=== PATIENT | female | born 1990 | race Caucasian/White ===

== ENCOUNTER 2016-07-31 19:53 | Observation (INO) | payer OTHER ==
[2016-07-31] MEDS ORDERED: SODIUM CHLORIDE 0.9% 1,000 ML IV STA (22:20)
[2016-07-31 22:25] LABS: Basophils % (A) 0 %; CH 32.5; CHCM 35.7; Eosinophils # (A) 0.2 k/uL (0-0.7); Eosinophils % (A) 2 %; HCT 42.3 % (34.0-46.0); HDW 2.52; HGB 14.3 gm/dL (11.4-16.0); Luc % (Auto) 1; Lymphocytes % (A) 20 %; MCH 30.8 pg (25.0-35.0); MCHC 33.7 g/dL (31.0-37.0); MCV 91.4 fL (80.0-100.0); Mean Platelet Volume 8.1; Monocytes # (A) 0.6 k/uL (0-1.0); Monocytes % (A) 6 %; Neutrophils # (A) 7.4 k/uL (1.3-7.7); Neutrophils % (A) 72 %; RBC 4.63 m/uL (3.80-5.40); RDW 12.7 % (11.5-15.5); WBC 10.3 k/uL (3.8-10.6); WBC (Perox) 10.43
[2016-07-31 22:26] LABS: Appearance,Urine Cloudy (Clear); Bacteria,Urine Many /hpf; Bilirubin,Urine Negative (Negative); Glucose,Urine (UA) Negative (Negative); Ketones,Urine 1+ (Negative); Leukocyte Esterase,Urine Large (Negative); Mucus,Urine Occasional /hpf; Nitrite,Urine Negative (Negative); Particle Count 9660; Protein,Urine 1+ (Negative); RBC,Urine 19 /hpf (0-5); Specific Gravity,Urine 1.017 (1.001-1.035); Squamous Epithelial Cell,Urine 4 /hpf (0-4); UA Billing (MACRO vs. MICRO) MICRO; WBC,Urine 139 /hpf (0-5)
[2016-07-31] MEDS ORDERED: METOCLOPRAMIDE 5 MG/ML 2 ML VIAL IVP STA (22:31)
[2016-07-31] MEDS ORDERED: ACETAMINOPHEN IV (For NPO) 1,000 MG in EMPTY BAG 1 BAG IVPB STA (22:31)
[2016-07-31 22:34] LABS: ALT 29 U/L (9-52); AST 15 U/L (14-36); Alkaline Phosphatase 46 U/L (38-126); Amylase 38 U/L (30-110); Anion Gap 13 mmol/L; Blood Urea Nitrogen 7 mg/dL (7-17); Carbon Dioxide 23 mmol/L (22-30); Chloride 103 mmol/L (98-107); Glucose 86 mg/dL (74-99); Non-African American GFR(MDRD) >60 (>60 ml/min/1.73 sqM); Potassium 3.6 mmol/L (3.5-5.1); Sodium 139 mmol/L (137-145); Total Bilirubin 0.6 mg/dL (0.2-1.3); Total Protein 6.7 g/dL (6.3-8.2)
--- NOTE | 2016-07-31 22:36 | ED ---
Abdominal Pain HPI <Basilio Bailey - Last Filed: 08/01/16 01:01> - General Source: patient, RN notes reviewed Mode of arrival: ambulatory Limitations: no limitations <Elizabeth Rojas - Last Filed: 08/01/16 03:26> - General Chief Complaint: Abdominal Pain Stated Complaint: abd pain, fever, sleeplessness Time Seen by Provider: 07/31/16 22:02 - History of Present Illness Initial Comments: Patient is a 25-year-old female presents to the emergency room for evaluation of lower abdominal pain. Patient states she has been having abdominal pain for the past 3 days. Patient states she feels like her stomach is being twisted and then pulled apart. Patient states she is 10 days late on her last menstrual period. Patient denies vaginal bleeding. Patient denies abnormal vaginal discharge. Patient states she has a history of herpes. Patient denies any other history of STDs. Patient does state that she is having some pain and burning during urination. Patient denies any blood in the urine. Patient denies any fevers or chills. Patient denies constipation or diarrhea. Patient states she's been very nauseous from abdominal pain. Patient states she has a history of D&C and laparoscopic surgery when she was 11. Patient denies any other abdominal surgeries. Patient denies chest pain or shortness of breath. Patient denies headache or dizziness. Patient denies fevers or chills. (Elizabeth Rojas) - Related Data Previous Rx's Medication Instructions Recorded Clindamycin [Cleocin] 150 mg PO TID 7 Days 08/01/16 Allergies Allergy/AdvReac Type Severity Reaction Status Date / Time No Known Allergies Allergy Verified 07/31/16 21:36 Review of Systems ROS Other: All systems not noted in ROS Statement are negative. <Basilio Bailey - Last Filed: 08/01/16 01:01> ROS Other: All systems not noted in ROS Statement are negative. <Elizabeth Rojas - Last Filed: 08/01/16 03:26> ROS Statement: Those systems with pertinent positive or pertinent negative responses have been documented in the HPI. Past Medical History Past Medical History: GERD/Reflux Additional Past Medical History / Comment(s): HSV last 2000 History of Any Multi-Drug Resistant Organisms: None Reported Additional Past Surgical History / Comment(s): D&C, EXPLORATORY LAP Past Anesthesia/Blood Transfusion Reactions: No Reported Reaction Past Psychological History: Anxiety, Depression, PTSD Smoking Status: Current every day smoker Past Alcohol Use History: Occasional Additional Past Alcohol Use History / Comment(s): 1/2 pack per day Past Drug Use History: Marijuana - Past Family History Sister(s) Family Medical History: Asthma Additional Family Medical History / Comment(s): aunt- thyroid disease <Elizabeth Rojas - Last Filed: 08/01/16 03:26> General Exam <Basilio Bailey - Last Filed: 08/01/16 01:01> Limitations: no limitations General appearance: alert, in no apparent distress Head exam: Present: atraumatic, normocephalic, normal inspection Eye exam: Present: normal appearance ENT exam: Present: normal exam Neck exam: Present: normal inspection Respiratory exam: Present: normal lung sounds bilaterally. Absent: respiratory distress Cardiovascular Exam: Present: regular rate, normal rhythm, normal heart sounds GI/Abdominal exam: Present: soft, tenderness (RUQ/LUQ), normal bowel sounds. Absent: distended, guarding, rebound, rigid External exam: Present: normal external exam Speculum exam: Present: normal speculum exam, vaginal discharge By manual exam: Present: cervical motion tenderness, adnexal tenderness ( Bilateral). Absent: normal by manual exam Extremities exam: Present: normal inspection Back exam: Present: normal inspection Neurological exam: Present: alert, oriented X3, CN II-XII intact, normal gait Psychiatric exam: Present: normal affect, normal mood Skin exam: Present: warm, dry, intact, normal color. Absent: rash <Elizabeth Rojas - Last Filed: 08/01/16 03:26> - General Exam Comments Initial Comments: Pain exam room, tearful, no acute distress. (Elizabeth Rojas) Medical Decision Making - Lab Data Result diagrams: 07/31/16 22:05 07/31/16 22:05 <Basilio Bailey - Last Filed: 08/01/16 01:01> - Lab Data Result diagrams: 07/31/16 22:05 07/31/16 22:05 - Radiology Data Radiology results: report reviewed, image reviewed <Elizabeth Rojas - Last Filed: 08/01/16 03:26> - Medical Decision Making Patient reevaluated by myself, Dr. Bailey. Patient does have mild tenderness in the lower abdomen/pelvic region on exam. Case was discussed in detail with Dr. Montalvo, who will admit for Dr. Camargo with IV antibiotics. (Basilio Bailey) Patient is a 25-year-old female presents emergency room for evaluation of lower abdominal pain. Urine test positive. Urinalysis suspicious for urinary tract infection. Patient was extremely tender during bimanual exam. Labs and vital stable. Case discussed with Dr. Bailey. Dr. Bailey also evaluated patient. Dr. Bailey spoke with Dr. Montalvo who will admit for Dr. Camargo. Patient will be started on Rocephin. Plan discussed with patient. ( Elizabeth Rojas) - Lab Data Lab Results 07/31/16 07/31/16 07/31/16 Range/Units 22:00 22:00 22:05 WBC (3.8-10.6) k/uL RBC (3.80-5.40) m/uL Hgb (11.4-16.0) gm/dL Hct (34.0-46.0) % MCV (80.0-100.0) fL MCH (25.0-35.0) pg MCHC (31.0-37.0) g/dL RDW (11.5-15.5) % Plt Count (150-450) k/uL Neutrophils % % Lymphocytes % % Monocytes % % Eosinophils % % Basophils % % Neutrophils # (1.3-7.7) k/uL Lymphocytes # (1.0-4.8) k/uL Monocytes # (0-1.0) k/uL Eosinophils # (0-0.7) k/uL Basophils # (0-0.2) k/uL Sodium 139 (137-145) mmol/L Potassium 3.6 (3.5-5.1) mmol/L Chloride 103 (98-107) mmol/L Carbon Dioxide 23 (22-30) mmol/L Anion Gap 13 mmol/L BUN 7 (7-17) mg/dL Creatinine 0.83 (0.52-1.04) mg/dL Est GFR (MDRD) Af Amer >60 (>60 ml/min/1.73 sqM) Est GFR (MDRD) Non-Af >60 (>60 ml/min/1.73 sqM) Glucose 86 (74-99) mg/dL Calcium 9.0 (8.4-10.2) mg/dL Total Bilirubin 0.6 (0.2-1.3) mg/dL AST 15 (14-36) U/L ALT 29 (9-52) U/L Alkaline Phosphatase 46 (38-126) U/L Total Protein 6.7 (6.3-8.2) g/dL Albumin 4.1 (3.5-5.0) g/dL Amylase 38 (30-110) U/L Lipase 63 (23-300) U/L HCG, Quant mIU/mL Urine Color Yellow Urine Appearance Cloudy H (Clear) Urine pH 8.0 (5.0-8.0) Ur Specific Ronan 1.017 (1.001-1.035) Urine Protein 1+ H (Negative) Urine Glucose (UA) Negative (Negative) Urine Ketones 1+ H (Negative) Urine Blood Negative (Negative) Urine Nitrate Negative (Negative) Urine Bilirubin Negative (Negative) Urine Urobilinogen 4.0 (<2.0) mg/dL Ur Leukocyte Esterase Large H (Negative) Urine RBC 19 H (0-5) /hpf Urine WBC 139 H (0-5) /hpf Urine WBC Clumps Rare H (None) /hpf Ur Squamous Epith Cells 4 (0-4) /hpf Urine Bacteria Many H (None) /hpf Urine Mucus Occasional H (None) /hpf Urine HCG, Qual Detected (Not Detectd) Trichomonas Ag (Rapid) (Negative) 07/31/16 07/31/16 08/01/16 Range/Units 22:05 22:10 00:01 WBC 10.3 (3.8-10.6) k/uL RBC 4.63 (3.80-5.40) m/uL Hgb 14.3 (11.4-16.0) gm/dL Hct 42.3 (34.0-46.0) % MCV 91.4 (80.0-100.0) fL MCH 30.8 (25.0-35.0) pg MCHC 33.7 (31.0-37.0) g/dL RDW 12.7 (11.5-15.5) % Plt Count 273 (150-450) k/uL Neutrophils % 72 % Lymphocytes % 20 % Monocytes % 6 % Eosinophils % 2 % Basophils % 0 % Neutrophils # 7.4 (1.3-7.7) k/uL Lymphocytes # 2.0 (1.0-4.8) k/uL Monocytes # 0.6 (0-1.0) k/uL Eosinophils # 0.2 (0-0.7) k/uL Basophils # 0.0 (0-0.2) k/uL Sodium (137-145) mmol/L Potassium (3.5-5.1) mmol/L Chloride (98-107) mmol/L Carbon Dioxide (22-30) mmol/L Anion Gap mmol/L BUN (7-17) mg/dL Creatinine (0.52-1.04) mg/dL Est GFR (MDRD) Af Amer (>60 ml/min/1.73 sqM) Est GFR (MDRD) Non-Af (>60 ml/min/1.73 sqM) Glucose (74-99) mg/dL Calcium (8.4-10.2) mg/dL Total Bilirubin (0.2-1.3) mg/dL AST (14-36) U/L ALT (9-52) U/L Alkaline Phosphatase (38-126) U/L Total Protein (6.3-8.2) g/dL Albumin (3.5-5.0) g/dL Amylase (30-110) U/L Lipase (23-300) U/L HCG, Quant 166.9 mIU/mL Urine Color Urine Appearance (Clear) Urine pH (5.0-8.0) Ur Specific Ronan (1.001-1.035) Urine Protein (Negative) Urine Glucose (UA) (Negative) Urine Ketones (Negative) Urine Blood (Negative) Urine Nitrate (Negative) Urine Bilirubin (Negative) Urine Urobilinogen (<2.0) mg/dL Ur Leukocyte Esterase (Negative) Urine RBC (0-5) /hpf Urine WBC (0-5) /hpf Urine WBC Clumps (None) /hpf Ur Squamous Epith Cells (0-4) /hpf Urine Bacteria (None) /hpf Urine Mucus (None) /hpf Urine HCG, Qual (Not Detectd) Trichomonas Ag (Rapid) Negative (Negative) Disposition <Basilio Bailey - Last Filed: 08/01/16 01:01> Decision Date: 08/01/16 <Elizabeth Rojas - Last Filed: 08/01/16 03:26> Clinical Impression: , Pelvic pain, Urinary tract infection Disposition: ADMITTED IP TO THIS HOSP Condition: Stable
[2016-08-01] MEDS ORDERED: AZITHROMYCIN 500 MG TAB PO STA (00:24)
[2016-08-01] MEDS ORDERED: cefTRIAXone 250 MG VIAL IM STA (00:24)
--- NOTE | 2016-08-01 00:35 | US ---
EXAMINATION TYPE: US OB <=14 wks transvag DATE OF EXAM: 07/31/2016 11:48 PM COMPARISON: NONE CLINICAL HISTORY: ML pain, just found out today in ER, unknown LMP- no period in June, i rreg menses, has 7 month old baby . EXAM PERFORMED: Transvaginal (TV) and Transabdominal (TA) EXAM MEASUREMENTS: GESTATIONAL AGE / DATING Dates by LMP: (Unknown) EDC: Unknown Dates by Current Scan: (Unable to determine) EDC: Unable to determine MATERNAL ANATOMY Uterus: 8.1 x 5.8 x 4.8 cm Right Ovary: 3.4 x 1.6 x 1.7 cm Left Ovary: 3.6 x 2.4 x 2.3 cm Post CDS / Adnexa: Free fluid Presence of corpus luteal cyst: left ovarian lesion=1.6 x 1.7 x 1.6 cm Endometrium- 1.3 cm, tiny cystic area seen via vaginal ultrasound GESTATION / SURVEY CRL: Not seen MSD: not seen Yolk Sac (normal less than 6mm): not seen IUP: No IUP seen at this time Date of LMP: unknown Beta HcG (if available): unavailable at this time TECHNOLOGIST IMPRESSION: No IUP seen. Moderate/large about of free fluid seen in bilateral adnexas and posterior cul de sac. IMPRESSION: No intra or extrauterine gestational sac is seen. There is free fluid in the cul-de-sac. There is a r ounded 1.6 cm echogenic area on the left ovary. This is of uncertain significance. I do not see any c onvincing evidence of an ectopic . The free fluid is nonspecific.
[2016-08-01] MEDS ORDERED: NALOXONE 0.4 MG/ML 1 ML VIAL IV PRN (01:43)
[2016-08-01] MEDS ORDERED: diphenhydrAMINE 50 MG/ML 1 ML VIAL IVP STA (01:59)
[2016-08-01] MEDS ORDERED: PYRIDOXINE 100 MG/ML 1 ML VIAL IVP STA (02:00)
[2016-08-01] MEDS ORDERED: PYRIDOXINE 100 MG/ML 1 ML VIAL IVP SCH (02:00)
[2016-08-01] MEDS: SODIUM CHLORIDE 0.9% 1,000 ML IV SCH ×2 (02:09→13:28)
[2016-08-01 03:30] VITALS: BMI 27.1
[2016-08-01 06:49] LABS: CH 32.1; CHCM 34.4; HCT 39.9 % (34.0-46.0); HGB 13.2 gm/dL (11.4-16.0); MCH 31.1 pg (25.0-35.0); MCHC 33.1 g/dL (31.0-37.0); MCV 93.7 fL (80.0-100.0); Mean Platelet Volume 7.4; RBC 4.25 m/uL (3.80-5.40); RDW 12.5 % (11.5-15.5); WBC 6.7 k/uL (3.8-10.6); WBC (Perox) 6.73
[2016-08-01 07:05] LABS: ALT 30 U/L (9-52); AST 18 U/L (14-36); Alkaline Phosphatase 40 U/L (38-126); Anion Gap 11 mmol/L; Blood Urea Nitrogen 6 mg/dL (7-17); Calcium 8.5 mg/dL (8.4-10.2); Carbon Dioxide 21 mmol/L (22-30); Chloride 110 mmol/L (98-107); Glucose 86 mg/dL (74-99); Non-African American GFR(MDRD) >60 (>60 ml/min/1.73 sqM); Potassium 3.8 mmol/L (3.5-5.1); Sodium 142 mmol/L (137-145); Total Bilirubin 0.8 mg/dL (0.2-1.3); Total Protein 5.9 g/dL (6.3-8.2)
[2016-08-01] MEDS: ACETAMINOPHEN TAB 325 MG TAB PO PRN ×3 (09:24→23:29)
--- NOTE | 2016-08-01 09:43 | P.HPOB ---
History of Present Illness H&P Date: 08/01/16 Chief Complaint: Pelvic pain: Positive test Patient is a 25-year-old G4 P to at unknown dates. She reports she is currently 12 days late for her menstrual cycle. A beta hCG was done in the emergency room and revealed a labs I of 161. They did do an ultrasound which showed a suspected corpus luteum cyst and a possible small 1.3 cm gestational sac in the uterus. This is difficult to say without the above beta-hCG it may potentially also be a suitable gestational sac. Certainly based on her history that she relates that she has a significant amount scarring in around her tubes she is at higher risk for an ectopic . She reports that in 2000 she had a diagnostic laparoscopy which she believes showed scarring of her fallopian tubes from what she believes was an old infection. She has however since that time had 2 vaginal deliveries without complications or difficulty. She reports that last night she was not really doing anything and then began having significant pain that was all the sudden. Pain is reported be 8 out of 10 at its worst. She was admitted for observational status. In following her blood pressures her blood pressures remained stable she has a low blood pressure began with averages have been 90s 5 over 50s to 60s. However her pulse is normal. I did note that she went from 14.3-313.2 on her hemoglobin over this may be dilutional issue likely was dehydrated on admission. There is also suspected urinary tract infection through the ER although no culture has been done. She was started on Rocephin through the emergency room as well. She had had a very long conversation about my concern over the possibility of ectopic . It is very difficult at this stage to state unequivocally that she does not have one however the amount of fluid in her pelvis is more reflective in her current situation of potentially a ruptured cyst than an ectopic . There is no true evidence of ectopic on ultrasound but absolutely cannot be ruled out at this time. Would recommend repeating her beta-hCG at 24 hours just that we have some directional idea as to what direction the [place] normal level is gone is doing. We'll also plan to repeat her CBC later today to verify stability. It is noted that she ate breakfast this morning so unless there is some emergency would not plan to do any diagnostic surgery for a minimum of 6 hours after this. Obviously if she has an emergency then that would be taken into consideration and would undergo surgery despite having just eaten. Diet was ordered through the emergency room. 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 History of Any Multi-Drug Resistant Organisms: None Reported Additional Past Surgical History / Comment(s): D&C, EXPLORATORY LAP Past Anesthesia/Blood Transfusion Reactions: No Reported Reaction Past Psychological History: Anxiety, Depression, PTSD Additional Psychological History / Comment(s): sees Dr. Ms. Potter through [facility] Smoking Status: Current every day smoker Past Alcohol Use History: Occasional Additional Past Alcohol Use History / Comment(s): 1/2 pack per day Past Drug Use History: Marijuana Additional Drug Use History / Comment(s): medical marijuana for ptsd - Past Family History Sister(s) Family Medical History: Asthma Additional Family Medical History / Comment(s): aunt- thyroid disease Mother History Unknown: Yes Father History Unknown: Yes Medications and Allergies Home Medications Medication Instructions Recorded Confirmed Type No Known Home Medications [No 08/01/16 08/01/16 History Known Home Medications] Allergies Allergy/AdvReac Type Severity Reaction Status Date / Time No Known Allergies Allergy Verified 07/31/16 21:36 Exam Osteopathic Statement: *. No significant issues noted on an osteopathic structural exam other than those noted in the History and Physical/Consult. - Vital Signs Vital signs: Vital Signs Temp Pulse Pulse Pulse Resp BP BP 08/01/16 07:33 98.1 F 76 16 94/54 08/01/16 03:00 98.4 F 76 18 08/01/16 02:17 98.1 F 66 18 109/56 BP Pulse Ox 08/01/16 07:33 98 08/01/16 03:00 96/41 99 08/01/16 02:17 100 Intake and Output 07/31/16 08/01/16 08/01/16 22:59 06:59 14:59 Output Total 300 Balance -300 Output: Urine 300 Other: Voiding Method Toilet Toilet # Voids 1 Weight 69.6 kg - OBG Physical Exam Abdomen: bowel sounds normal (Abdomen is soft and nontender. There are positive bowel sounds noted at this time there is no rebound/rigidity/guarding) , no diffuse tenderness, no bruit present, no guarding noted, no hepatomegaly, no splenomegaly, no mass Results Result Diagrams: 08/01/16 06:11 08/01/16 06:11 Abnormal Lab Results - Last 24 Hours (Table) 08/01/16 Range/Units 06:11 Chloride 110 H (98-107) mmol/L Carbon Dioxide 21 L (22-30) mmol/L BUN 6 L (7-17) mg/dL Total Protein 5.9 L (6.3-8.2) g/dL
[2016-08-01] MEDS: METOCLOPRAMIDE 5 MG/ML 2 ML VIAL IVP PRN ×3 (10:33→23:34)
[2016-08-01 10:54] LABS: Add Differential Manual Differential
[2016-08-01 10:58] LABS: Nucleated Red Blood Cells 0 /100 WBC (0-0); Total Cells Counted 100
[2016-08-01 10:59] LABS: Manual Review Performed
[2016-08-01 11:04] LABS: RBC Morphology Normal
[2016-08-01 14:24] LABS: CH 32.2; CHCM 34.4; HCT 39.6 % (34.0-46.0); HDW 2.55; HGB 13.5 gm/dL (11.4-16.0); MCV 94.1 fL (80.0-100.0); Mean Platelet Volume 8.4; RDW 12.7 % (11.5-15.5)
[2016-08-01 20:12] VITALS: RESP 20
[2016-08-02] MEDS: SODIUM CHLORIDE 0.9% 1,000 ML IV SCH (02:37)
[2016-08-02] MEDS: METOCLOPRAMIDE 5 MG/ML 2 ML VIAL IVP PRN (06:39)
[2016-08-02] MEDS: ACETAMINOPHEN TAB 325 MG TAB PO PRN (07:53)
--- NOTE | 2016-08-02 08:31 | P.DS ---
Providers Date of admission: 08/01/16 01:43 Expected date of discharge: 08/02/16 Attending physician: Ashley Camargo Primary care physician: Thao Nava - Discharge Diagnosis(es) (1) Current Visit: Yes Status: Acute (2) Urinary tract infection Current Visit: Yes Status: Acute (3) Abdominal pain affecting , antepartum Current Visit: No Status: Acute Hospital Course: Patient presented with pelvic pain and is currently . Her. She was only 161. There was some free fluid in the pelvis and she was admitted for observation. Her beta hCG and less than 48 hours only went up to 171. It is still not clear whether this is an ectopic or a normal intrauterine or possibly a threatened . She will follow-up with the beta-hCG 48 hours from now and return to my office on Friday for results. She is instructed that if her pain worsens she should return to the hospital or call immediately. Patient Condition at Discharge: Stable Plan - Discharge Summary New Discharge Prescriptions: Metoclopramide HCl [Reglan] 5 mg PO AC-TID PRN #30 tablet PRN Reason: Nausea Nitrofurantoin Monohyd/M-Cryst [Macrobid] 100 mg PO Q12HR #14 cap Discharge Medication List Metoclopramide HCl [Reglan] 5 mg PO AC-TID PRN #30 tablet 08/02/16 [Rx] Nitrofurantoin Monohyd/M-Cryst [Macrobid] 100 mg PO Q12HR #14 cap 08/02/16 [Rx] Follow up Appointment(s)/Referral(s): Ashley Camargo DO [Doctor of Osteopathic Medicine] - 3 Days Activity/Diet/Wound Care/Special Instructions: Take antibiotics as directed. Please follow-up with S[employer]OL PROGRAM DIRECTOR in 24-48 hours for reevaluation. If any new symptom arises, symptoms worsen or fever develops, return to ER as soon as possible. Discharge Disposition: HOME SELF-CARE
[2016-08-02 09:06] VITALS: BP 125/72; PULSE 75; TEMP 98
== END 2016-08-02 09:35 | disposition home or self-care (01) ==
LOC: EC 19:53 → 6PED 08-01 01:43
PROVIDERS: ADMIT Obstetrics & Gynecology; ATTEND Obstetrics & Gynecology
DX: O23.41 Unspecified infection of urinary tract in pregnancy, first trimester (principal); O99.331 Smoking (tobacco) complicating pregnancy, first trimester; A60.00 Herpesviral infection of urogenital system, unspecified; K21.9 Gastro-esophageal reflux disease without esophagitis; F41.9 Anxiety disorder, unspecified; F32.9 Major depressive disorder, single episode, unspecified; F43.10 Post-traumatic stress disorder, unspecified; F12.90 Cannabis use, unspecified, uncomplicated; Z82.5 Family history of asthma and other chronic lower respiratory diseases; Z3A.00 Weeks of gestation of pregnancy not specified
CPT/HCPCS: 36415; 86900; 86901; 80053 ×2; 87591; 87491; 82150; 83690; 85025 ×2; 85027; 81001; 81025; 84702 ×2; 87808; 87070; 76801; 76817; 99285; 96375 ×4; 96372; 96361; G0378 ×2; J1200; J3415; J2765 ×3; J0696 ×2; J0131; 87205; 96365; 96366; 96376

== ENCOUNTER → 2016-08-04 | Outpatient (CLI) | payer OTHER | END | disposition home or self-care (01) | LOC: PEDOP 09:54 | PROVIDERS: ATTEND Obstetrics & Gynecology | DX: O00.90 Unspecified ectopic pregnancy without intrauterine pregnancy (principal); Z3A.00 Weeks of gestation of pregnancy not specified | CPT/HCPCS: 84702 ==

== ENCOUNTER → 2016-08-05 | Outpatient (CLI) | payer OTHER ==
[~2016-08-05] MED LIST: METHOTREXATE SODIUM (PF) 25 MG/ML 2 ML VIAL IM NR
[2016-08-05 11:27] VITALS: BP 132/84; PULSE 105; RESP 18; TEMP 98.3
== END | disposition home or self-care (01) ==
LOC: PROCWHC3 10:53
PROVIDERS: ATTEND Obstetrics & Gynecology
DX: O00.90 Unspecified ectopic pregnancy without intrauterine pregnancy (principal); Z3A.00 Weeks of gestation of pregnancy not specified
CPT/HCPCS: 96402; J9260

== ENCOUNTER 2016-11-01 11:29 | Emergency (ER) | payer BC, OTHER ==
[2016-11-01] MEDS ORDERED: KETOROLAC 60 MG/2 ML VIAL IM STA (11:47)
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
--- NOTE | 2016-11-01 12:17 | XR ---
EXAMINATION TYPE: XR knee complete RT DATE OF EXAM ORDERED: 11/01/2016 12:11 PM HISTORY: Pain. COMPARISON: Previous study dated 04/03/2016. FINDINGS: Joint spaces are maintained. There is no chondrocalcinosis. No fracture or dislocation is seen. No joint effusion is evident. IMPRESSION: NORMAL RIGHT KNEE.
[2016-11-01 13:10] VITALS: BP 119/71; PULSE 68; RESP 15; TEMP 98
== END 2016-11-01 13:15 | disposition home or self-care (01) ==
LOC: EC 11:29
DX: S86.911A Strain of unspecified muscle(s) and tendon(s) at lower leg level, right leg, initial encounter (principal); F17.200 Nicotine dependence, unspecified, uncomplicated; Z91.030 Bee allergy status; X58.XXXA Exposure to other specified factors, initial encounter
CPT/HCPCS: 99283; 96372; 73562; J1885

== ENCOUNTER → 2016-11-26 | Outpatient (CLI) | payer BC, OTHER ==
--- NOTE | 2016-11-27 15:04 | MR ---
EXAMINATION TYPE: MR knee RT wo con DATE OF EXAM: 11/26/2016 4:17 PM COMPARISON: NONE HISTORY: Rt knee pain x 1 month TECHNIQUE: Multiplanar, multisequence imaging of the right knee is performed without IV contrast. FINDINGS: MEDIAL MENISCUS: There is mild increased signal within the substance of the anterior and posterior ho rns of the medial meniscus, more so at the posterior horn. Findings can be compatible some internal d erangement. LATERAL MENISCUS: There is increased signal within the substance of the posterior horn lateral menisc us compatible some internal derangement. Anterior horn lateral meniscus is intact. CRUCIATE LIGAMENTS: The anterior and posterior cruciate ligaments are intact and unremarkable. COLLATERAL LIGAMENTS: The medial collateral ligament and lateral collateral ligament complex are inta ct and unremarkable. EXTENSOR MECHANISM: Distal quadriceps tendon is normal. The patellar tendon near the insertion of the tibia has some minimal intrasubstance increased signal on T2-weighted sequences. Minimal strain may be present. EFFUSION: There is a small approaching moderate sized joint effusion present. POPLITEAL CYST: No popliteal cyst is evident. TRICOMPARTMENT SPACES: No significant joint space narrowing is present. CARTILAGE: Articular cartilage is intact. BONE MARROW SIGNAL: No focal abnormal marrow signal is appreciated. OTHER: No additional significant abnormality is appreciated. IMPRESSION: Increased signal within the substance of the posterior horn medial meniscus without communication to an articular surface. Type I tear may be present. 2. Milder type I tears and internal derangement of the anterior and posterior horn medial meniscus ma y be present. 3. Small to moderate joint effusion. 4. Mild increased signal insertion of the patellar tendon. Correlate for strain at this location.
== END | disposition home or self-care (01) ==
LOC: RADMRIMAIN 15:44
PROVIDERS: ATTEND Internal Medicine
DX: S83.241A Other tear of medial meniscus, current injury, right knee, initial encounter (principal); M25.461 Effusion, right knee

== ENCOUNTER 2017-02-08 07:08 | Emergency (ER) | payer BC, OTHER ==
[2017-02-08] MEDS ORDERED: MORPHINE SULFATE 4 MG/ML SYRINGE IV STA (07:49)
[2017-02-08] MEDS ORDERED: ESOMEPRAZOLE 20 MG in SODIUM CHLORIDE 0.9% 50 ML IVPB STA (07:49)
[2017-02-08] MEDS ORDERED: ONDANSETRON 4 MG/2 ML VIAL IVP STA (07:49)
[2017-02-08] MEDS ORDERED: SODIUM CHLORIDE 0.9% 1,000 ML IV STA ×2 (07:49)
[2017-02-08 08:00] LABS: Basophils # (A) 0.1 k/uL (0-0.2); Basophils % (A) 1 %; CH 32.8; CHCM 35.1; Eosinophils # (A) 0.2 k/uL (0-0.7); Eosinophils % (A) 3 %; HCT 41.1 % (34.0-46.0); HDW 2.46; HGB 14.3 gm/dL (11.4-16.0); Luc # (Auto) 0.13; Luc % (Auto) 2; Lymphocytes # (A) 1.8 k/uL (1.0-4.8); Lymphocytes % (A) 26 %; MCH 32.5 pg (25.0-35.0); MCHC 34.7 g/dL (31.0-37.0); MCV 93.7 fL (80.0-100.0); Mean Platelet Volume 8.3; Monocytes # (A) 0.4 k/uL (0-1.0); Monocytes % (A) 6 %; Neutrophils # (A) 4.2 k/uL (1.3-7.7); Neutrophils % (A) 62 %; RBC 4.39 m/uL (3.80-5.40); RDW 13.4 % (11.5-15.5); WBC 6.8 k/uL (3.8-10.6); WBC (Perox) 6.72
--- NOTE | 2017-02-08 08:01 | ED ---
General Adult HPI - General Chief complaint: Abdominal Pain Stated complaint: ABDOMINAL PAIN, RT SIDE Time Seen by Provider: 02/08/17 07:37 Source: patient, RN notes reviewed, old records reviewed Mode of arrival: ambulatory Limitations: no limitations - History of Present Illness Initial comments: This is a 26-year-old female to the ER for evaluation. Patient comes in for evaluation of epigastric pain, superpubic abdominal pain. Severe abdominal pain. Patient states it feels like she had prior tubal , she had tubal was first treated with methotrexate, no prior abdominal surgeries. She is nauseous with vomiting, no fevers. Patient states she is 2 weeks late on her period. No bowel or bladder issues. No centralis or sick contacts, no feeling over the similar symptoms - Related Data Home Medications Medication Instructions Recorded Confirmed No Known Home Medications [No 11/01/16 11/01/16 Known Home Medications] Allergies Allergy/AdvReac Type Severity Reaction Status Date / Time venom-honey bee Allergy Swelling Verified 02/08/17 07:24 Review of Systems ROS Statement: Those systems with pertinent positive or pertinent negative responses have been documented in the HPI. ROS Other: All systems not noted in ROS Statement are negative. 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 History of Any Multi-Drug Resistant Organisms: None Reported Additional Past Surgical History / Comment(s): D&C, EXPLORATORY LAP Past Anesthesia/Blood Transfusion Reactions: No Reported Reaction Past Psychological History: Anxiety, Depression, PTSD Smoking Status: Current every day smoker Past Alcohol Use History: Occasional Past Drug Use History: Marijuana - Past Family History Sister(s) Family Medical History: Asthma Additional Family Medical History / Comment(s): aunt- thyroid disease Mother History Unknown: Yes Father History Unknown: Yes General Exam Limitations: no limitations General appearance: alert, in no apparent distress, anxious Head exam: Present: atraumatic, normocephalic, normal inspection Eye exam: Present: normal appearance, PERRL, EOMI. Absent: scleral icterus, conjunctival injection, periorbital swelling ENT exam: Present: normal exam, mucous membranes moist Neck exam: Present: normal inspection. Absent: tenderness, meningismus, lymphadenopathy Respiratory exam: Present: normal lung sounds bilaterally. Absent: respiratory distress, wheezes, rales, rhonchi, stridor Cardiovascular Exam: Present: regular rate, normal rhythm, normal heart sounds. Absent: systolic murmur, diastolic murmur, rubs, gallop, clicks GI/Abdominal exam: Present: soft, tenderness, normal bowel sounds. Absent: distended, guarding, rebound, rigid Extremities exam: Present: normal inspection, full ROM, normal capillary refill. Absent: tenderness, pedal edema, joint swelling, calf tenderness Back exam: Present: normal inspection Neurological exam: Present: alert, oriented X3, CN II-XII intact Psychiatric exam: Present: normal affect, normal mood Skin exam: Present: warm, dry, intact, normal color. Absent: rash Course Vital Signs 02/08/17 07:21 Temperature 98.4 F Pulse Rate 91 Respiratory 20 Rate Blood Pressure 113/72 O2 Sat by Pulse 100 Oximetry - Reevaluation(s) Reevaluation #1: 02/08/17 10:18 Patient's pain is controlled, resting comfortably Medical Decision Making - Medical Decision Making 26-year-old here for evaluation regarding abdominal abdominal and pelvic pain, ovarian cyst, no torsion, pain control, urine negative patient can be discharged - Lab Data Result diagrams: 02/08/17 07:36 02/08/17 07:36 Lab Results 02/08/17 02/08/17 02/08/17 Range/Units 07:33 07:33 07:36 WBC (3.8-10.6) k/uL RBC (3.80-5.40) m/uL Hgb (11.4-16.0) gm/dL Hct (34.0-46.0) % MCV (80.0-100.0) fL MCH (25.0-35.0) pg MCHC (31.0-37.0) g/dL RDW (11.5-15.5) % Plt Count (150-450) k/uL Neutrophils % % Lymphocytes % % Monocytes % % Eosinophils % % Basophils % % Neutrophils # (1.3-7.7) k/uL Lymphocytes # (1.0-4.8) k/uL Monocytes # (0-1.0) k/uL Eosinophils # (0-0.7) k/uL Basophils # (0-0.2) k/uL Sodium 140 (137-145) mmol/L Potassium 4.2 (3.5-5.1) mmol/L Chloride 111 H (98-107) mmol/L Carbon Dioxide 22 (22-30) mmol/L Anion Gap 7 mmol/L BUN 13 (7-17) mg/dL Creatinine 0.82 (0.52-1.04) mg/dL Est GFR (MDRD) Af Amer >60 (>60 ml/min/1.73 sqM) Est GFR (MDRD) Non-Af >60 (>60 ml/min/1.73 sqM) Glucose 89 (74-99) mg/dL Calcium 8.5 (8.4-10.2) mg/dL Total Bilirubin 0.1 L (0.2-1.3) mg/dL AST 30 (14-36) U/L ALT 35 (9-52) U/L Alkaline Phosphatase 33 L (38-126) U/L Total Protein 5.5 L (6.3-8.2) g/dL Albumin 3.4 L (3.5-5.0) g/dL Amylase 50 (30-110) U/L Lipase 222 (23-300) U/L HCG, Quant <2.4 mIU/mL Urine Color Yellow Urine Appearance Cloudy H (Clear) Urine pH 6.5 (5.0-8.0) Ur Specific [place] 1.019 (1.001-1.035) Urine Protein Trace H (Negative) Urine Glucose (UA) Negative (Negative) Urine Ketones Negative (Negative) Urine Blood Small H (Negative) Urine Nitrite Negative (Negative) Urine Bilirubin Negative (Negative) Urine Urobilinogen <2.0 (<2.0) mg/dL Ur Leukocyte Esterase Negative (Negative) Urine RBC 4 (0-5) /hpf Urine WBC 1 (0-5) /hpf Ur Squamous Epith Cells 9 H (0-4) /hpf Urine Bacteria Rare H (None) /hpf Urine Mucus Rare H (None) /hpf Urine Sperm Occasional H (None) /hpf Urine HCG, Qual Not Detected (Not Detectd) 02/08/17 Range/Units 07:36 WBC 6.8 (3.8-10.6) k/uL RBC 4.39 (3.80-5.40) m/uL Hgb 14.3 (11.4-16.0) gm/dL Hct 41.1 (34.0-46.0) % MCV 93.7 (80.0-100.0) fL MCH 32.5 (25.0-35.0) pg MCHC 34.7 (31.0-37.0) g/dL RDW 13.4 (11.5-15.5) % Plt Count 219 (150-450) k/uL Neutrophils % 62 % Lymphocytes % 26 % Monocytes % 6 % Eosinophils % 3 % Basophils % 1 % Neutrophils # 4.2 (1.3-7.7) k/uL Lymphocytes # 1.8 (1.0-4.8) k/uL Monocytes # 0.4 (0-1.0) k/uL Eosinophils # 0.2 (0-0.7) k/uL Basophils # 0.1 (0-0.2) k/uL Sodium (137-145) mmol/L Potassium (3.5-5.1) mmol/L Chloride (98-107) mmol/L Carbon Dioxide (22-30) mmol/L Anion Gap mmol/L BUN (7-17) mg/dL Creatinine (0.52-1.04) mg/dL Est GFR (MDRD) Af Amer (>60 ml/min/1.73 sqM) Est GFR (MDRD) Non-Af (>60 ml/min/1.73 sqM) Glucose (74-99) mg/dL Calcium (8.4-10.2) mg/dL Total Bilirubin (0.2-1.3) mg/dL AST (14-36) U/L ALT (9-52) U/L Alkaline Phosphatase (38-126) U/L Total Protein (6.3-8.2) g/dL Albumin (3.5-5.0) g/dL Amylase (30-110) U/L Lipase (23-300) U/L HCG, Quant mIU/mL Urine Color Urine Appearance (Clear) Urine pH (5.0-8.0) Ur Specific [place] (1.001-1.035) Urine Protein (Negative) Urine Glucose (UA) (Negative) Urine Ketones (Negative) Urine Blood (Negative) Urine Nitrite (Negative) Urine Bilirubin (Negative) Urine Urobilinogen (<2.0) mg/dL Ur Leukocyte Esterase (Negative) Urine RBC (0-5) /hpf Urine WBC (0-5) /hpf Ur Squamous Epith Cells (0-4) /hpf Urine Bacteria (None) /hpf Urine Mucus (None) /hpf Urine Sperm (None) /hpf Urine HCG, Qual (Not Detectd) - Radiology Data Radiology results: report reviewed (CT abdomen and pelvis shows ovarian cyst, ultrasound pelvis shows ovarian cyst no torsion), image reviewed Disposition Clinical Impression: Pelvic pain, Ovarian cyst Disposition: HOME SELF-CARE Condition: Good Instructions: Ovarian Cyst (ED) Referrals: Irlanda Galicia MD [Primary Care Provider] - 1-2 days
[2017-02-08 08:05] LABS: Appearance,Urine Cloudy (Clear); Bacteria,Urine Rare /hpf; Bilirubin,Urine Negative (Negative); Glucose,Urine (UA) Negative (Negative); Ketones,Urine Negative (Negative); Leukocyte Esterase,Urine Negative (Negative); Mucus,Urine Rare /hpf; Nitrite,Urine Negative (Negative); PH, Urine 6.5 (5.0-8.0); Particle Count 4281; Protein,Urine Trace (Negative); RBC,Urine 4 /hpf (0-5); Specific Gravity,Urine 1.019 (1.001-1.035); Sperm,Urine Occasional /hpf; Squamous Epithelial Cell,Urine 9 /hpf (0-4); UA Billing (MACRO vs. MICRO) MICRO; Urobilinogen,Urine <2.0 mg/dL (<2.0); WBC,Urine 1 /hpf (0-5)
[2017-02-08 08:13] LABS: ALT 35 U/L (9-52); AST 30 U/L (14-36); Alkaline Phosphatase 33 U/L (38-126); Amylase 50 U/L (30-110); Anion Gap 7 mmol/L; Blood Urea Nitrogen 13 mg/dL (7-17); Calcium 8.5 mg/dL (8.4-10.2); Carbon Dioxide 22 mmol/L (22-30); Chloride 111 mmol/L (98-107); Glucose 89 mg/dL (74-99); Non-African American GFR(MDRD) >60 (>60 ml/min/1.73 sqM); Potassium 4.2 mmol/L (3.5-5.1); Sodium 140 mmol/L (137-145); Total Bilirubin 0.1 mg/dL (0.2-1.3); Total Protein 5.5 g/dL (6.3-8.2)
[2017-02-08 08:30] LABS: HCG,Quantitative Serum <2.4 mIU/mL
[2017-02-08] MEDS ORDERED: RX INFO: IV CONTRAST WAS GIVEN 1 EACH MISC MISCELLANE PRN (08:45)
--- NOTE | 2017-02-08 09:32 | CT ---
EXAMINATION TYPE: CT abdomen pelvis w con DATE OF EXAM: 02/08/2017 COMPARISON: 09/13/2014 HISTORY: Pelvic pain, history of ovarian cyst CT DLP: 480.2 mGycm CONTRAST: CT scan of the abdomen and pelvis is performed without Oral Contrast and with IV Contrast, patient in jected with 100 mL of Omnipaque 300. FINDINGS: LUNG BASES-: No visible nodule. No infiltrate. LIVER/GB: No calcified gallstones. No space occupying hepatic lesion. Biliary tree is of normal ca liber. PANCREAS: No inflammation. No distinct mass. SPLEEN: No splenic enlargement. No lesion seen. ADRENALS: No nodule. No thickening. KIDNEYS/BLADDER: No hydronephrosis. No nephrolithiasis. No disctinct renal mass. Urinary bladder g rossly unremarkable. BOWEL: Normal appendix. Normal bowel caliber. No inflammation. GENITAL ORGANS: Involuting cyst right ovary measures 2.1 cm. Left ovary is unremarkable as is the ut erus. Trace free fluid within the cul-de-sac. LYMPH NODES: No greater than 1cm abdominal or pelvic lymph nodes are appreciated. AORTA: No significant abnormality. OSSEOUS STRUCTURES: No significant abnormality is seen. OTHER: No significant additional abnormality is seen. IMPRESSION: 1. Involuting cyst right ovary measures 2.1 cm. Otherwise unremarkable study.
--- NOTE | 2017-02-08 10:11 | US ---
EXAMINATION TYPE: US pelvis complete transvag DATE OF EXAM: 02/08/2017 COMPARISON: NONE CLINICAL HISTORY: Pain. TECHNIQUE: Transabdominal and endovaginal pelvic ultrasound was performed with color Doppler imaging . EXAM MEASUREMENTS: Uterus: 10.0 x 5.3 x 4.9 cm Endometrial Stripe: 0.7 cm Right Ovary: 4.5 x 2.1 x 3.8 cm Left Ovary: 3.7 x 1.6 x 2.8 cm 1. Uterus: anteverted wnl 2. Endometrium: wnl 3. Right Ovary: Measuring a little big 4. Left Ovary: wnl Spectral, color and waveform doppler imaging shows good arterial and venous flow within the ovaries ; there is no evidence for ovarian torsion. 5. Bilateral Adnexa: wnl 6. Posterior cul-de-sac: wnl IMPRESSION: Tiny ovarian follicles. No evidence for torsion.
[2017-02-08 10:20] VITALS: BP 92/50; PULSE 70; RESP 18; TEMP 97.5
== END 2017-02-08 10:27 | disposition home or self-care (01) ==
LOC: EC 07:08
DX: N83.201 Unspecified ovarian cyst, right side (principal); R11.2 Nausea with vomiting, unspecified; F17.200 Nicotine dependence, unspecified, uncomplicated; Z91.030 Bee allergy status
CPT/HCPCS: 36415; 80053; 82150; 83690; 85025; 81001; 81025; 84702; 87086; 93975; 76856; 74177; 99284; 96365; 96375 ×2; 96361 ×2; J2270; J2405; Q9967; 93976

== ENCOUNTER 2017-02-16 14:52 | Emergency (ER) | payer BC, OTHER ==
[2017-02-16] MEDS ORDERED: SODIUM CHLORIDE 0.9% 1,000 ML IV STA (15:09)
--- NOTE | 2017-02-16 15:11 | ED ---
General Adult HPI <Basilio Bailey - Last Filed: 02/16/17 18:08> - General Source: patient, RN notes reviewed Mode of arrival: ambulatory Limitations: no limitations <Moi Javier - Last Filed: 02/16/17 18:18> - General Chief complaint: Abdominal Pain Stated complaint: Issue Time Seen by Provider: 02/16/17 15:03 - History of Present Illness Initial comments: Patient 26-year-old female who presents emergency room today with a chief complaint of right-sided abdominal pain. She does admit that she was at work earlier today when she went to [employer] and she felt increased pain in the right lower quadrant. She does admit that the pain reminded her of pain that she had the past when she had a tubal . She states she did go to an urgent care which she tested positive for test and was advised coming here to the emergency room. At that the pain has improved since this morning when it started approximately 3 AM. Patient denies any other complaints or associated symptoms currently. Patient denies any recent fever, chills, shortness of breath, chest pain, back pain, abdominal pain, nausea or vomiting, numbness or tingling, dysuria or hematuria, constipation or diarrhea, headaches or visual changes, or any other complaints. (Moi Javier) - Related Data Home Medications Medication Instructions Recorded Confirmed Pedi Multivit No.25/Folic Acid 300 mcg PO DAILY 02/16/17 02/16/17 [Flintstones Multivit Chew Tab] Ranitidine HCl [Zantac] 75 mg PO DAILY 02/16/17 02/16/17 Allergies Allergy/AdvReac Type Severity Reaction Status Date / Time venom-honey bee Allergy Swelling Verified 02/16/17 15:11 Review of Systems ROS Other: All systems not noted in ROS Statement are negative. <Basilio Bailey - Last Filed: 02/16/17 18:08> ROS Other: All systems not noted in ROS Statement are negative. <Moi Javier - Last Filed: 02/16/17 18:18> ROS Statement: Those systems with pertinent positive or pertinent negative responses have been documented in the HPI. 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 History of Any Multi-Drug Resistant Organisms: None Reported Additional Past Surgical History / Comment(s): D&C, EXPLORATORY LAP Past Anesthesia/Blood Transfusion Reactions: No Reported Reaction Past Psychological History: Anxiety, Depression, PTSD Smoking Status: Current every day smoker Past Alcohol Use History: Occasional Past Drug Use History: Marijuana - Past Family History Sister(s) Family Medical History: Asthma Additional Family Medical History / Comment(s): aunt- thyroid disease Mother History Unknown: Yes Father History Unknown: Yes <Moi Javier - Last Filed: 02/16/17 18:18> General Exam <Basilio Bailey - Last Filed: 02/16/17 18:08> Limitations: no limitations <Moi Javier - Last Filed: 02/16/17 18:18> - General Exam Comments Initial Comments: General: The patient is awake and alert, in no distress, and does not appear acutely ill. Eye: Pupils are equal, round and reactive to light, extra-ocular movements are intact. No nystagmus. There is normal conjunctiva bilaterally. No signs of icterus. Ears, nose, mouth and throat: There are moist mucous membranes and no oral lesions. Neck: The neck is supple, there is no tenderness or JVD. Cardiovascular: There is a regular rate and rhythm. No murmur, rub or gallop is appreciated. Respiratory: Lungs are clear to auscultation, respirations are non-labored, breath sounds are equal. No wheezes, stridor, rales, or rhonchi. Gastrointestinal: Soft, non-distended. Tender right lower quadrant. There is no rebound or guarding present. No CVA tenderness. Bowel sounds are unremarkable. Musculoskeletal: Normal ROM, no tenderness. Strength 5/5. Sensation intact. Pulses equal bilaterally 2+. Neurological: A&O x 3. CN II-XII intact, There are no obvious motor or sensory deficits. Coordination appears grossly intact. Speech is normal. Skin: Skin is warm and dry and no rashes or lesions are noted. Psychiatric: Cooperative, appropriate mood & affect, normal judgment. (Moi Javier) Medical Decision Making - Lab Data Result diagrams: 02/16/17 15:30 02/16/17 15:30 <Basilio Bailey - Last Filed: 02/16/17 18:08> - Lab Data Result diagrams: 02/16/17 15:30 02/16/17 15:30 <Moi Javier - Last Filed: 02/16/17 18:18> - Medical Decision Making Patient reevaluated by myself, Dr. Bailey. Patient does have increase of beta hCG from 08 days ago to 778 today. Ultrasound is nondiagnostic. Patient is 5 para 2 aborta 03, 1 was an etopic . Patient feels better at this time. Abdomen/pelvis soft and nontender. Patient was updated on results and need for follow-up. Case was discussed with Dr. Camargo who does want repeat beta hCG in 2 days and will contact patient following this. (Basilio Bailey) - Lab Data Lab Results 02/16/17 02/16/17 02/16/17 Range/Units 15:30 15:30 15:30 WBC 9.9 (3.8-10.6) k/uL RBC 4.92 (3.80-5.40) m/uL Hgb 15.9 (11.4-16.0) gm/dL Hct 45.0 (34.0-46.0) % MCV 91.3 (80.0-100.0) fL MCH 32.4 (25.0-35.0) pg MCHC 35.4 (31.0-37.0) g/dL RDW 13.2 (11.5-15.5) % Plt Count 352 (150-450) k/uL Neutrophils % 69 % Lymphocytes % 21 % Monocytes % 7 % Eosinophils % 1 % Basophils % 0 % Neutrophils # 6.8 (1.3-7.7) k/uL Lymphocytes # 2.0 (1.0-4.8) k/uL Monocytes # 0.7 (0-1.0) k/uL Eosinophils # 0.1 (0-0.7) k/uL Basophils # 0.0 (0-0.2) k/uL Sodium 141 (137-145) mmol/L Potassium 4.0 (3.5-5.1) mmol/L Chloride 107 (98-107) mmol/L Carbon Dioxide 21 L (22-30) mmol/L Anion Gap 13 mmol/L BUN 11 (7-17) mg/dL Creatinine 0.78 (0.52-1.04) mg/dL Est GFR (MDRD) Af Amer >60 (>60 ml/min/1.73 sqM) Est GFR (MDRD) Non-Af >60 (>60 ml/min/1.73 sqM) Glucose 85 (74-99) mg/dL Calcium 9.6 (8.4-10.2) mg/dL Total Bilirubin 1.3 (0.2-1.3) mg/dL AST 24 (14-36) U/L ALT 33 (9-52) U/L Alkaline Phosphatase 44 (38-126) U/L Total Protein 7.5 (6.3-8.2) g/dL Albumin 4.7 (3.5-5.0) g/dL HCG, Quant 778.8 mIU/mL Urine Color Urine Appearance (Clear) Urine pH (5.0-8.0) Ur Specific [place] (1.001-1.035) Urine Protein (Negative) Urine Glucose (UA) (Negative) Urine Ketones (Negative) Urine Blood (Negative) Urine Nitrite (Negative) Urine Bilirubin (Negative) Urine Urobilinogen (<2.0) mg/dL Ur Leukocyte Esterase (Negative) Urine RBC (0-5) /hpf Urine WBC (0-5) /hpf Ur Squamous Epith Cells (0-4) /hpf Urine Bacteria (None) /hpf Urine Mucus (None) /hpf Blood Type A Positive Blood Type Recheck No 02/16/17 Range/Units 15:30 WBC (3.8-10.6) k/uL RBC (3.80-5.40) m/uL Hgb (11.4-16.0) gm/dL Hct (34.0-46.0) % MCV (80.0-100.0) fL MCH (25.0-35.0) pg MCHC (31.0-37.0) g/dL RDW (11.5-15.5) % Plt Count (150-450) k/uL Neutrophils % % Lymphocytes % % Monocytes % % Eosinophils % % Basophils % % Neutrophils # (1.3-7.7) k/uL Lymphocytes # (1.0-4.8) k/uL Monocytes # (0-1.0) k/uL Eosinophils # (0-0.7) k/uL Basophils # (0-0.2) k/uL Sodium (137-145) mmol/L Potassium (3.5-5.1) mmol/L Chloride (98-107) mmol/L Carbon Dioxide (22-30) mmol/L Anion Gap mmol/L BUN (7-17) mg/dL Creatinine (0.52-1.04) mg/dL Est GFR (MDRD) Af Amer (>60 ml/min/1.73 sqM) Est GFR (MDRD) Non-Af (>60 ml/min/1.73 sqM) Glucose (74-99) mg/dL Calcium (8.4-10.2) mg/dL Total Bilirubin (0.2-1.3) mg/dL AST (14-36) U/L ALT (9-52) U/L Alkaline Phosphatase (38-126) U/L Total Protein (6.3-8.2) g/dL Albumin (3.5-5.0) g/dL HCG, Quant mIU/mL Urine Color Yellow Urine Appearance Clear (Clear) Urine pH 5.5 (5.0-8.0) Ur Specific [place] 1.015 (1.001-1.035) Urine Protein Trace H (Negative) Urine Glucose (UA) Negative (Negative) Urine Ketones 2+ H (Negative) Urine Blood Small H (Negative) Urine Nitrite Negative (Negative) Urine Bilirubin Negative (Negative) Urine Urobilinogen <2.0 (<2.0) mg/dL Ur Leukocyte Esterase Negative (Negative) Urine RBC <1 (0-5) /hpf Urine WBC <1 (0-5) /hpf Ur Squamous Epith Cells 3 (0-4) /hpf Urine Bacteria Rare H (None) /hpf Urine Mucus Occasional H (None) /hpf Blood Type Blood Type Recheck Disposition <Basilio Bailey - Last Filed: 02/16/17 18:08> Time of Disposition: 18:17 <Moi Javier - Last Filed: 02/16/17 18:18> Clinical Impression: Threatened Disposition: HOME SELF-CARE Condition: Good Instructions: Threatened Miscarriage (ED) Additional Instructions: Please follow up with the [facility] over the next 2 days. Please have repeat lab draw done in 2 days as discussed. Please return to emergency room if symptoms increase or worsen or for any other concerns. Referrals: Irlanda Galicia MD [Primary Care Provider] - 1-2 days Ashley Camargo DO [Doctor of Osteopathic Medicine] - 1-2 days
[2017-02-16 15:36] LABS: Basophils % (A) 0 %; CH 32.9; CHCM 36.2; Eosinophils # (A) 0.1 k/uL (0-0.7); Eosinophils % (A) 1 %; HDW 2.47; HGB 15.9 gm/dL (11.4-16.0); Luc # (Auto) 0.15; Luc % (Auto) 2; Lymphocytes % (A) 21 %; MCH 32.4 pg (25.0-35.0); MCHC 35.4 g/dL (31.0-37.0); MCV 91.3 fL (80.0-100.0); Mean Platelet Volume 7.8; Monocytes # (A) 0.7 k/uL (0-1.0); Monocytes % (A) 7 %; Neutrophils # (A) 6.8 k/uL (1.3-7.7); Neutrophils % (A) 69 %; RBC 4.92 m/uL (3.80-5.40); RDW 13.2 % (11.5-15.5); WBC 9.9 k/uL (3.8-10.6)
[2017-02-16 15:38] LABS: Appearance,Urine Clear (Clear); Bacteria,Urine Rare /hpf; Bilirubin,Urine Negative (Negative); Glucose,Urine (UA) Negative (Negative); Ketones,Urine 2+ (Negative); Leukocyte Esterase,Urine Negative (Negative); Mucus,Urine Occasional /hpf; Nitrite,Urine Negative (Negative); PH, Urine 5.5 (5.0-8.0); Particle Count 6114; Protein,Urine Trace (Negative); RBC,Urine <1 /hpf (0-5); Specific Gravity,Urine 1.015 (1.001-1.035); Squamous Epithelial Cell,Urine 3 /hpf (0-4); UA Billing (MACRO vs. MICRO) MICRO; Urobilinogen,Urine <2.0 mg/dL (<2.0); WBC,Urine <1 /hpf (0-5)
[2017-02-16 15:49] LABS: ALT 33 U/L (9-52); AST 24 U/L (14-36); Alkaline Phosphatase 44 U/L (38-126); Anion Gap 13 mmol/L; Blood Urea Nitrogen 11 mg/dL (7-17); Calcium 9.6 mg/dL (8.4-10.2); Carbon Dioxide 21 mmol/L (22-30); Chloride 107 mmol/L (98-107); Glucose 85 mg/dL (74-99); Non-African American GFR(MDRD) >60 (>60 ml/min/1.73 sqM); Sodium 141 mmol/L (137-145); Total Bilirubin 1.3 mg/dL (0.2-1.3); Total Protein 7.5 g/dL (6.3-8.2)
[2017-02-16 16:04] LABS: HCG,Quantitative Serum 778.8 mIU/mL
--- NOTE | 2017-02-16 17:36 | US ---
EXAMINATION TYPE: US OB <=14 wks transvag DATE OF EXAM: 02/16/2017 COMPARISON: NONE CLINICAL HISTORY: 26-year-old female Pain. Syncope, N/V, hematuria, 5, para 2, miscarriage 2 Date of LMP: Patient unsure of exact LMP Beta HcG (if available): 778.8 EXAM PERFORMED: Transabdominal (TA) FINDINGS: EXAM MEASUREMENTS: GESTATIONAL AGE / DATING Physician Established: Not established yet Dates by LMP: Patient unsure of exact LMP Dates by First Scan: This is 1st scan Dates by Current Scan for: No IUP seen at this time MATERNAL ANATOMY Uterus: 7.6 x 5.3 x 6.3cm, anteverted Endometrium: 1.5cm, thickened Right Ovary: 3.6 x 2.5 x 2.9cm Left Ovary: 4.3 x 1.5 x 2.6cm Post CDS / Adnexa: small amount of free fluid in posterior cul de sac Presence of free fluid: yes Presence of corpus luteal cyst: right ovary: 1.4 x 1.7 x 1.7cm hypoechoic area with peripheral vascul arity, probable corpus luteum Presence of subchorionic bleed: no GESTATION / SURVEY IUP: No IUP seen at this time TIMBER APPRAISER NOTES: No IUP seen at this time IMPRESSION: No visualized intrauterine at this time. Note that the beta-hCG level is below the threshol d for visualization of an intrauterine . Recommend serial beta-hCG and ultrasound follow-up to ensure the appearance of a normal pole with cardiac activity. Currently, the differential co nsiderations include normal early , failed , and nonvisualized ectopic.
[2017-02-16 18:37] VITALS: BP 123/61; PULSE 72; RESP 18; TEMP 98
== END 2017-02-16 18:37 | disposition home or self-care (01) ==
LOC: EC 14:52
DX: O20.0 Threatened abortion (principal); K21.9 Gastro-esophageal reflux disease without esophagitis; F17.200 Nicotine dependence, unspecified, uncomplicated; Z3A.00 Weeks of gestation of pregnancy not specified; Z79.899 Other long term (current) drug therapy; Z91.030 Bee allergy status
CPT/HCPCS: 36415; 76801; 80053; 81001; 84702; 85025; 86900; 86901; 87086; 96360; 99284

== ENCOUNTER → 2017-02-18 | Outpatient (CLI) | payer BC, OTHER | END | disposition home or self-care (01) | LOC: LABWHC1 09:56 | PROVIDERS: ATTEND Physician Assistant | DX: Z34.90 Encounter for supervision of normal pregnancy, unspecified, unspecified trimester (principal); Z3A.00 Weeks of gestation of pregnancy not specified | CPT/HCPCS: 36415; 84702 ==

== ENCOUNTER 2017-04-12 18:43 | Emergency (ER) | payer BC, OTHER ==
[2017-04-12] MEDS ORDERED: SODIUM CHLORIDE 0.9% 500 ML IV ONE (19:09)
[2017-04-12] MEDS ORDERED: SODIUM CHLORIDE 0.9% 1,000 ML IV ONE (19:09)
--- NOTE | 2017-04-12 19:19 | ED ---
Weakness HPI - General Chief complaint: Weakness Stated complaint: Weakness Time Seen by Provider: 04/12/17 19:04 Source: patient Mode of arrival: wheelchair Limitations: no limitations - History of Present Illness Initial comments: 26-year-old female patient presented to emergency department today for evaluation of weakness and dizziness. She states that she has been recently treated for a left lower dental abscess. States that she did complete the penicillin in full. She states that since she initially broke the tooth about 2 weeks ago she has been having intermittent dizziness and lightheadedness. He states that today she is having increased pain to the left lower jaw, states is radiating up into her left ear. She states that today the dizziness is much worse. She states that she was going out to get some [employer], states that she stepped out of the air conditioning into the heat she became very dizzy, saw spots in her vision, and nearly collapsed. She states that since then she has been having intermittent episodes of lightheadedness. States that she is nauseated, she did vomit this morning. She states she believes this is related to her morning sickness as she is 12 weeks . Patient denies any recent rash, fever, chills, shortness breath, chest pain, diarrhea, constipation, back pain, numbness, tingling, dizziness, weakness, hematuria, dysuria, urinary urgency, urinary frequency, or headache. She denies any vaginal bleeding, states that her OBGYN Dr. Camargo diagnosed her with a yeast infection. She states she gets paid on Friday and will be getting Monistat at that time. She states she does have intermittent abdominal cramping, she has had this throughout her entire , Dr. Camargo is aware. She states this has not worsened or changed in any way. Patient is A3, she did have a tubal . - Related Data Home Medications Medication Instructions Recorded Confirmed Pedi Multivit No.25/Folic Acid 600 mcg PO DAILY 02/16/17 04/12/17 [Flintstones Multivit Chew Tab] Allergies Allergy/AdvReac Type Severity Reaction Status Date / Time venom-honey bee Allergy Swelling Verified 04/12/17 19:15 Review of Systems ROS Statement: Those systems with pertinent positive or pertinent negative responses have been documented in the HPI. ROS Other: All systems not noted in ROS Statement are negative. 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 History of Any Multi-Drug Resistant Organisms: None Reported Additional Past Surgical History / Comment(s): D&C, EXPLORATORY LAP Past Anesthesia/Blood Transfusion Reactions: No Reported Reaction Past Psychological History: Anxiety, Depression, PTSD Smoking Status: Current every day smoker Past Alcohol Use History: Occasional Past Drug Use History: Marijuana - Past Family History Sister(s) Family Medical History: Asthma Additional Family Medical History / Comment(s): aunt- thyroid disease Mother History Unknown: Yes Father History Unknown: Yes General Exam Limitations: no limitations General appearance: alert, in no apparent distress Eye exam: Present: normal appearance, PERRL, EOMI. Absent: scleral icterus, conjunctival injection, periorbital swelling ENT exam: Present: normal exam, normal oropharynx, mucous membranes moist, other (Multiple broken teeth, diffuse dental caries, overall poor dentition. No gingival erythema or swelling, no area of drainable abscess.) Neck exam: Present: normal inspection. Absent: tenderness, meningismus, lymphadenopathy Respiratory exam: Present: normal lung sounds bilaterally. Absent: respiratory distress, wheezes, rales, rhonchi, stridor Cardiovascular Exam: Present: regular rate, normal rhythm, normal heart sounds. Absent: systolic murmur, diastolic murmur, rubs, gallop, clicks GI/Abdominal exam: Present: soft, normal bowel sounds. Absent: distended, tenderness, guarding, rebound, rigid Extremities exam: Present: normal inspection, full ROM, normal capillary refill. Absent: tenderness, pedal edema, joint swelling, calf tenderness Back exam: Present: normal inspection. Absent: tenderness, CVA tenderness (R), CVA tenderness (L) Neurological exam: Present: alert, oriented X3, CN II-XII intact Psychiatric exam: Present: normal affect, normal mood Skin exam: Present: warm, dry, intact, normal color. Absent: rash Course Vital Signs 04/12/17 04/12/17 04/12/17 18:52 20:11 21:16 Temperature 97.3 F L 97.7 F 96.8 F L Pulse Rate 78 64 71 Respiratory 20 18 18 Rate Blood Pressure 119/70 109/57 119/60 O2 Sat by Pulse 100 100 99 Oximetry EKG Findings - EKG Comments: EKG Findings:: EKG obtained at 1926 reveals normal sinus rhythm with a right bundle branch block, ventricular rate 76, when necessary interval 162, QRS duration 146, QT 426, QTc 479. Medical Decision Making - Medical Decision Making 26 year-old female patient presented for evaluation of dizziness and dental pain. Patient is 12 weeks . She denies any complications with the . heart tones were found by myself and were 160. Patient was given Tylenol for dental pain and IV fluids.she states after the fluid she is feeling much better. EKG was obtained and did show a right bundle branch block. Patient was informed of this change and instructed to follow-up with her primary care physician or cardiology for further evaluation. Patient was also diagnosed with a yeast infection by her DEVELOPMENT AND PLANNING ENGINEER, she states that she hasn't been unable to get the Monistat because she does not get pain until Friday. Patient was ordered the medication here in the department. She will be discharged home to follow-up with her primary care physician or her DEVELOPMENT AND PLANNING ENGINEER within 1-2 days. She is instructed to return here immediately for any new, worsening, or concerning symptoms. She verbalizes understanding and agrees this plan. - Lab Data Result diagrams: 04/12/17 19:35 04/12/17 19:35 Lab Results 04/12/17 04/12/17 04/12/17 Range/Units 19:35 19:35 19:35 WBC 8.8 (3.8-10.6) k/uL RBC 4.18 (3.80-5.40) m/uL Hgb 13.4 (11.4-16.0) gm/dL Hct 39.5 (34.0-46.0) % MCV 94.5 (80.0-100.0) fL MCH 32.0 (25.0-35.0) pg MCHC 33.8 (31.0-37.0) g/dL RDW 13.3 (11.5-15.5) % Plt Count 224 (150-450) k/uL Neutrophils % 71 % Lymphocytes % 21 % Monocytes % 5 % Eosinophils % 2 % Basophils % 0 % Neutrophils # 6.3 (1.3-7.7) k/uL Lymphocytes # 1.8 (1.0-4.8) k/uL Monocytes # 0.4 (0-1.0) k/uL Eosinophils # 0.2 (0-0.7) k/uL Basophils # 0.0 (0-0.2) k/uL Sodium 135 L (137-145) mmol/L Potassium 4.0 (3.5-5.1) mmol/L Chloride 107 (98-107) mmol/L Carbon Dioxide 20 L (22-30) mmol/L Anion Gap 8 mmol/L BUN 8 (7-17) mg/dL Creatinine 0.53 (0.52-1.04) mg/dL Est GFR (MDRD) Af Amer >60 (>60 ml/min/1.73 sqM) Est GFR (MDRD) Non-Af >60 (>60 ml/min/1.73 sqM) Glucose 79 (74-99) mg/dL Calcium 8.9 (8.4-10.2) mg/dL Magnesium 1.8 (1.6-2.3) mg/dL Total Bilirubin 0.1 L (0.2-1.3) mg/dL AST 17 (14-36) U/L ALT 26 (9-52) U/L Alkaline Phosphatase 34 L (38-126) U/L Total Creatine Kinase 71 (30-135) U/L CK-MB (CK-2) 0.3 (0.0-2.4) ng/mL CK-MB (CK-2) Rel Index 0.4 Troponin I <0.012 (0.000-0.034) ng/mL Total Protein 6.3 (6.3-8.2) g/dL Albumin 3.6 (3.5-5.0) g/dL Urine Color Urine Appearance (Clear) Urine pH (5.0-8.0) Ur Specific [place] (1.001-1.035) Urine Protein (Negative) Urine Glucose (UA) (Negative) Urine Ketones (Negative) Urine Blood (Negative) Urine Nitrite (Negative) Urine Bilirubin (Negative) Urine Urobilinogen (<2.0) mg/dL Ur Leukocyte Esterase (Negative) Urine WBC (0-5) /hpf Ur Squamous Epith Cells (0-4) /hpf Urine Bacteria (None) /hpf 04/12/17 Range/Units 19:35 WBC (3.8-10.6) k/uL RBC (3.80-5.40) m/uL Hgb (11.4-16.0) gm/dL Hct (34.0-46.0) % MCV (80.0-100.0) fL MCH (25.0-35.0) pg MCHC (31.0-37.0) g/dL RDW (11.5-15.5) % Plt Count (150-450) k/uL Neutrophils % % Lymphocytes % % Monocytes % % Eosinophils % % Basophils % % Neutrophils # (1.3-7.7) k/uL Lymphocytes # (1.0-4.8) k/uL Monocytes # (0-1.0) k/uL Eosinophils # (0-0.7) k/uL Basophils # (0-0.2) k/uL Sodium (137-145) mmol/L Potassium (3.5-5.1) mmol/L Chloride (98-107) mmol/L Carbon Dioxide (22-30) mmol/L Anion Gap mmol/L BUN (7-17) mg/dL Creatinine (0.52-1.04) mg/dL Est GFR (MDRD) Af Amer (>60 ml/min/1.73 sqM) Est GFR (MDRD) Non-Af (>60 ml/min/1.73 sqM) Glucose (74-99) mg/dL Calcium (8.4-10.2) mg/dL Magnesium (1.6-2.3) mg/dL Total Bilirubin (0.2-1.3) mg/dL AST (14-36) U/L ALT (9-52) U/L Alkaline Phosphatase (38-126) U/L Total Creatine Kinase (30-135) U/L CK-MB (CK-2) (0.0-2.4) ng/mL CK-MB (CK-2) Rel Index Troponin I (0.000-0.034) ng/mL Total Protein (6.3-8.2) g/dL Albumin (3.5-5.0) g/dL Urine Color Light Yellow Urine Appearance Cloudy H (Clear) Urine pH 6.5 (5.0-8.0) Ur Specific [place] 1.004 (1.001-1.035) Urine Protein Negative (Negative) Urine Glucose (UA) Negative (Negative) Urine Ketones Negative (Negative) Urine Blood Negative (Negative) Urine Nitrite Negative (Negative) Urine Bilirubin Negative (Negative) Urine Urobilinogen <2.0 (<2.0) mg/dL Ur Leukocyte Esterase Moderate H (Negative) Urine WBC 2 (0-5) /hpf Ur Squamous Epith Cells 8 H (0-4) /hpf Urine Bacteria Rare H (None) /hpf Disposition Clinical Impression: Lightheadedness, Fractured tooth, Right bundle branch block, Vulvovaginal candidiasis Disposition: HOME SELF-CARE Condition: Good Instructions: Vulvovaginal Candidiasis (ED), Lightheadedness (ED), Toothache ( ED) Additional Instructions: Take medications as directed. Increase fluids. Follow-up with maintenance mechanic 2nd shift due to right bundle branch block on EKG. Follow up with her DEVELOPMENT AND PLANNING ENGINEER or primary care physician for recheck in 1-2 days. Return here immediately for any new, worsening, or concerning symptoms. Referrals: None,Stated [Primary Care Provider] - 1-2 days Ashley Camargo DO [Doctor of Osteopathic Medicine] - 1-2 days [facility] [Provider Group] - 1-2 days Time of Disposition: 21:04
[2017-04-12 19:48] LABS: Basophils % (A) 0 %; CH 33.7; CHCM 35.8; Eosinophils # (A) 0.2 k/uL (0-0.7); Eosinophils % (A) 2 %; HCT 39.5 % (34.0-46.0); HDW 2.49; HGB 13.4 gm/dL (11.4-16.0); Luc # (Auto) 0.09; Luc % (Auto) 1; Lymphocytes # (A) 1.8 k/uL (1.0-4.8); Lymphocytes % (A) 21 %; MCHC 33.8 g/dL (31.0-37.0); MCV 94.5 fL (80.0-100.0); Mean Platelet Volume 8.2; Monocytes # (A) 0.4 k/uL (0-1.0); Monocytes % (A) 5 %; Neutrophils # (A) 6.3 k/uL (1.3-7.7); Neutrophils % (A) 71 %; RBC 4.18 m/uL (3.80-5.40); RDW 13.3 % (11.5-15.5); WBC 8.8 k/uL (3.8-10.6); WBC (Perox) 9.17
[2017-04-12 19:54] LABS: Appearance,Urine Cloudy (Clear); Bacteria,Urine Rare /hpf; Bilirubin,Urine Negative (Negative); Glucose,Urine (UA) Negative (Negative); Ketones,Urine Negative (Negative); Leukocyte Esterase,Urine Moderate (Negative); Nitrite,Urine Negative (Negative); PH, Urine 6.5 (5.0-8.0); Particle Count 5853; Protein,Urine Negative (Negative); Specific Gravity,Urine 1.004 (1.001-1.035); Squamous Epithelial Cell,Urine 8 /hpf (0-4); UA Billing (MACRO vs. MICRO) MICRO; Urobilinogen,Urine <2.0 mg/dL (<2.0); WBC,Urine 2 /hpf (0-5)
[2017-04-12 19:58] LABS: ALT 26 U/L (9-52); AST 17 U/L (14-36); Alkaline Phosphatase 34 U/L (38-126); Anion Gap 8 mmol/L; Blood Urea Nitrogen 8 mg/dL (7-17); Calcium 8.9 mg/dL (8.4-10.2); Carbon Dioxide 20 mmol/L (22-30); Chloride 107 mmol/L (98-107); Glucose 79 mg/dL (74-99); Magnesium 1.8 mg/dL (1.6-2.3); Non-African American GFR(MDRD) >60 (>60 ml/min/1.73 sqM); Sodium 135 mmol/L (137-145); Total Bilirubin 0.1 mg/dL (0.2-1.3); Total Protein 6.3 g/dL (6.3-8.2)
[2017-04-12 20:12] VITALS: RESP 18
[2017-04-12 20:19] LABS: Creatine Kinase 71 U/L (30-135)
[2017-04-12 20:32] LABS: Creatine Kinase MB 0.3 ng/mL (0.0-2.4); Troponin I <0.012 ng/mL (0.000-0.034)
[2017-04-12] MEDS ORDERED: MICONAZOLE NITRATE 4%/2% VAG CREAM KIT VAGINAL STA (21:01)
[2017-04-12] MEDS ORDERED: ACETAMINOPHEN TAB 325 MG TAB PO STA (21:01)
[2017-04-12 21:18] VITALS: BP 119/60; PULSE 71; TEMP 96.8
== END 2017-04-12 21:21 | disposition home or self-care (01) ==
LOC: EC 18:43
DX: O26.891 Other specified pregnancy related conditions, first trimester (principal); R42 Dizziness and giddiness; B37.3 Candidiasis of vulva and vagina; O9A.211 Injury, poisoning and certain other consequences of external causes complicating pregnancy, first trimester; S02.5XXA Fracture of tooth (traumatic), initial encounter for closed fracture; O99.411 Diseases of the circulatory system complicating pregnancy, first trimester; I45.10 Unspecified right bundle-branch block; O99.331 Smoking (tobacco) complicating pregnancy, first trimester; F17.200 Nicotine dependence, unspecified, uncomplicated; Z79.899 Other long term (current) drug therapy; Z91.030 Bee allergy status; Z3A.12 12 weeks gestation of pregnancy
CPT/HCPCS: 36415; 80053; 81001; 82550; 82553; 83735; 84484; 85025; 87086; 93005; 96360; 99285

== ENCOUNTER → 2017-04-24 | Outpatient (CLI) | payer BC, OTHER ==
[2017-04-24 11:25] LABS: CH 32.2; CHCM 34.5; HCT 37.9 % (34.0-46.0); HDW 2.51; HGB 13.1 gm/dL (11.4-16.0); MCH 32.4 pg (25.0-35.0); MCHC 34.6 g/dL (31.0-37.0); MCV 93.7 fL (80.0-100.0); Mean Platelet Volume 7.5; RBC 4.04 m/uL (3.80-5.40); RDW 12.4 % (11.5-15.5)
[2017-04-24 11:35] LABS: Glucose 76 mg/dL (74-99); Non-African American GFR(MDRD) >60 (>60 ml/min/1.73 sqM)
[2017-04-24 15:40] LABS: Treponemal Ab Non-Reactive (Non-Reactive)
== END | disposition home or self-care (01) ==
LOC: LABWHC1 10:13
PROVIDERS: ATTEND Obstetrics & Gynecology
DX: O26.811 Pregnancy related exhaustion and fatigue, first trimester (principal); Z3A.00 Weeks of gestation of pregnancy not specified
CPT/HCPCS: 36415; 82565; 82947; 85027; 86762; 86780; 86850; 86900; 86901; 87340; 87390

== ENCOUNTER 2017-04-25 11:08 | Emergency (ER) | payer BC, OTHER ==
[2017-04-25 11:33] VITALS: RESP 18
--- NOTE | 2017-04-25 12:07 | ED ---
General Adult HPI - General Chief complaint: Abdominal Pain Stated complaint: Hemorrhoids (14 wks ) Time Seen by Provider: 04/25/17 11:37 Source: patient, RN notes reviewed Mode of arrival: ambulatory Limitations: no limitations - History of Present Illness Initial comments: 26-year-old female presents to the emergency department with a chief complaint of hemorrhoid. Patient states she is 14 weeks . States she's having a hard time at work due to her hemorrhagic having constipation. She states that she tried steroid cream without any improvement so now she is here to see what else we can do. Patient denies any bleeding from the area. Patient states that she has had constipation. Patient was concerned due to her continued symptoms so she thought that she should be evaluated.Patient denies any recent fever, chills, shortness of breath, chest pain, back pain, abdominal pain, nausea vomiting, numbness or tingling, dysuria or hematuria, constipation or diarrhea, headaches or visual changes, or any other current symptoms. - Related Data Home Medications Medication Instructions Recorded Confirmed Pedi Multivit No.25/Folic Acid 600 mcg PO DAILY 02/16/17 04/25/17 [Flintstones Multivit Chew Tab] Acetaminophen Tab [Tylenol Tab] 650 mg PO Q4H PRN 04/25/17 04/25/17 Penicillin V Potassium [Pen Vee K] 500 mg PO Q6H 04/25/17 04/25/17 Previous Rx's Medication Instructions Recorded Hydrocortisone Acetate [Anusol-Hc] 25 mg RC BID #10 supp.rect 04/25/17 Allergies Allergy/AdvReac Type Severity Reaction Status Date / Time venom-honey bee Allergy Swelling Verified 04/25/17 11:41 Review of Systems ROS Statement: Those systems with pertinent positive or pertinent negative responses have been documented in the HPI. ROS Other: All systems not noted in ROS Statement are negative. 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 History of Any Multi-Drug Resistant Organisms: None Reported Additional Past Surgical History / Comment(s): D&C, EXPLORATORY LAP Past Anesthesia/Blood Transfusion Reactions: No Reported Reaction Past Psychological History: Anxiety, Depression, PTSD Smoking Status: Current every day smoker Past Alcohol Use History: None Reported Past Drug Use History: None Reported - Past Family History Sister(s) Family Medical History: Asthma Additional Family Medical History / Comment(s): aunt- thyroid disease Mother History Unknown: Yes Father History Unknown: Yes General Exam Limitations: no limitations General appearance: alert, in no apparent distress Eye exam: Present: normal appearance, PERRL, EOMI. Absent: scleral icterus, conjunctival injection, periorbital swelling ENT exam: Present: normal exam, mucous membranes moist Respiratory exam: Present: normal lung sounds bilaterally. Absent: respiratory distress, wheezes, rales, rhonchi, stridor Cardiovascular Exam: Present: regular rate, normal rhythm, normal heart sounds. Absent: systolic murmur, diastolic murmur, rubs, gallop, clicks Rectal exam: Present: hemorrhoids Neurological exam: Present: alert, oriented X3 Psychiatric exam: Present: normal affect, normal mood Skin exam: Present: warm, dry, intact, normal color. Absent: rash Course Vital Signs 04/25/17 11:29 Temperature 98.8 F Pulse Rate 86 Respiratory 18 Rate Blood Pressure 99/58 O2 Sat by Pulse 100 Oximetry Medical Decision Making - Medical Decision Making 26-year-old male with what appears to be a hemorrhoid. At this time we will start her knee and salt treatment. We discussed care of this. We discussed temporal salt than all patient's questions. He stated the Nico they are in agreement with plan. 7 answered. They'll be discharged. Disposition Clinical Impression: Hemorrhoid Disposition: HOME SELF-CARE Condition: Stable Instructions: Hemorrhoids (ED) Additional Instructions: Please use medication as discussed. Please follow up with family doctor if symptoms have not improved over the next two days. Please return to the emergency room if your symptoms increase or worsen or for any other concerns. Prescriptions: Hydrocortisone Acetate [Anusol-Hc] 25 mg RC BID #10 supp.rect Referrals: Irlanda Galicia MD [Primary Care Provider] - 1-2 days Time of Disposition: 12:06
[2017-04-25 12:46] VITALS: BP 112/64; PULSE 73; TEMP 98
== END 2017-04-25 12:45 | disposition home or self-care (01) ==
LOC: EC 11:08
DX: O22.42 Hemorrhoids in pregnancy, second trimester (principal); O99.332 Smoking (tobacco) complicating pregnancy, second trimester; F17.200 Nicotine dependence, unspecified, uncomplicated; Z3A.14 14 weeks gestation of pregnancy; Z91.030 Bee allergy status; Z79.899 Other long term (current) drug therapy
CPT/HCPCS: 99283

== ENCOUNTER → 2017-07-24 | Outpatient (CLI) | payer BC, OTHER ==
[2017-07-24 10:16] LABS: HCT 37.6 % (34.0-46.0); MCH 30.6 pg (25.0-35.0); MCV 95.6 fL (80.0-100.0); Mean Platelet Volume 8.6; Platelet Count 195 k/uL (150-450); RBC 3.93 m/uL (3.80-5.40); RDW 13.9 % (11.5-15.5); WBC 14.9 k/uL (3.8-10.6)
== END | disposition home or self-care (01) ==
LOC: LABWHC1 08:59
PROVIDERS: ATTEND Obstetrics & Gynecology
DX: Z34.82 Encounter for supervision of other normal pregnancy, second trimester (principal); Z3A.00 Weeks of gestation of pregnancy not specified
CPT/HCPCS: 36415; 82950; 85027

== ENCOUNTER 2017-08-08 10:06 | Outpatient (CLI) | payer BC, OTHER ==
[2017-08-08 10:14] VITALS: BP 114/67; PULSE 85; RESP 16; TEMP 98.1
[2017-08-08] MEDS ORDERED: LACTATED RINGERS 1,000 ML IV SCH (10:30)
[2017-08-08 11:04] LABS: Appearance,Urine Cloudy (Clear); Bacteria,Urine Rare /hpf; Bilirubin,Urine Negative (Negative); Blood,Urine Negative (Negative); Color,Urine Yellow; Glucose,Urine (UA) Negative (Negative); Ketones,Urine Negative (Negative); Leukocyte Esterase,Urine Negative (Negative); Mucus,Urine Moderate /hpf; Nitrite,Urine Negative (Negative); Protein,Urine 1+ (Negative); Specific Gravity,Urine 1.022 (1.001-1.035); Squamous Epithelial Cell,Urine 3 /hpf (0-4); Urobilinogen,Urine <2.0 mg/dL (<2.0); WBC,Urine 8 /hpf (0-5)
--- NOTE | 2017-08-08 12:48 | P.MSEPDOC ---
Presenting Problems - Arrival Data Date of Arrival on Unit: 08/08/17 Time of Arrival on Unit: 09:54 Mode of Transport: Ambulatory - Complaint OB-Reason for Admission/Chief Complaint: Acute Nausea/Vomiting, Pain Medical History - Information : 4 Para: 2 Term: 2 : 0 Abortions: Spontaneous or Elective: 1 Number of Living Children: 2 - Gestational Age Gestational Age by COREY (wks/days): 29 Weeks and 0 Days Review of Systems - Review of Systems Constitutional: No problems Breast: No problems ENT: No problems Cardiovascular: No problems Respiratory: No problems Gastrointestinal: No problems Genitourinary: No problems Musculoskeletal: No problems Neurological: No problems Skin: No problems Vital Signs - Temperature Temperature: 98.1 F Temperature Source: Oral - Pulse Right Brachial Pulse Rate: 85 Pulse Assessment Method: Automatic Cuff - Respirations Respiratory Rate: 16 Oxygen Delivery Method: Room Air O2 Sat by Pulse Oximetry: 99 - Blood Pressure Right Arm Blood Pressure: 114/67 Blood Pressure Mean: 82 Blood Pressure Source: Automatic Cuff Medical Screen Scoring (Pre) - Uterine Contractions Frequency: N/A - Maternal Vital Signs Maternal Temperature: N/A Signs of Preeclampsia: N/A, Headache = 1, Nausea/Vomiting = 1, Visual Disturbance = 1 Maternal Respirations: N/A - Pain Assessment Pain Location and Character: Abdomen Pain Scale Used: Numeric (1 - 10) Pain Intensity: 7 Pain Management Goal: 0 Pain Frequency: Intermittent Pain Behavior: Vocalization - Assessment Baseline FHR: 145 Heart Rate - NICHD Category: Category I (Normal) = 0 NST: Reactive - Total Score Total Score (Pre): 3 - Level of Risk Level of Risk: Low (0-5) Physician Notification (Post) - Physician Notified Physician Notified Date: 08/08/17 Physician Notified Time: 11:38 Physician/Practitioner Notified:: Raman Carter Order Received: Yes - Notification Comment Comment: pt may be discharged home Disposition - Disposition OB Disposition: Discharge to home Discharge Date: 08/08/17 Discharge Time: 11:58 I agree with the RN Medical Screening Exam: Yes Risk & Benefit of care provided described in d/c instruction: Yes Diagnosis: VOMITING OF , UNSPECIFIED
== END 2017-08-08 11:41 | disposition home or self-care (01) ==
LOC: FBPOP 10:06
PROVIDERS: ATTEND Obstetrics & Gynecology
DX: O21.9 Vomiting of pregnancy, unspecified (principal); Z3A.29 29 weeks gestation of pregnancy
CPT/HCPCS: 59025; 81001; 96360; 99214

== ENCOUNTER 2017-10-10 17:35 | Outpatient (CLI) | payer BC, OTHER ==
[2017-10-10 18:26] VITALS: BP 121/71; PULSE 108; RESP 16; TEMP 97.6
--- NOTE | 2017-10-11 07:38 | P.MSEPDOC ---
Presenting Problems - Arrival Data Date of Arrival on Unit: 10/10/17 Time of Arrival on Unit: 17:35 Mode of Transport: Ambulatory - Complaint OB-Reason for Admission/Chief Complaint: Rule Out SROM Comment: pt presents to triage with c/o increased discharge since 1600, pt states her water may have broke, also reports increase in vaginal pressure in last 2 days, pt reports hx of smoker 1/2 pack per day and is currently taking acyclovir, denies outbreaks with Medical History - Information : 5 Para: 2 Term: 2 : 0 Abortions: Spontaneous or Elective: 2 Number of Living Children: 2 - Gestational Age Gestational Age by COREY (wks/days): 38 Weeks and 0 Days - History Complications: Smoker Review of Systems - Review of Systems Constitutional: No problems Breast: No problems ENT: No problems Cardiovascular: No problems Respiratory: No problems Gastrointestinal: No problems Genitourinary: No problems Musculoskeletal: No problems Neurological: No problems Skin: No problems Vital Signs - Temperature Temperature: 97.6 F Temperature Source: Temporal Artery Scan - Pulse Right Brachial Pulse Rate: 108 Pulse Assessment Method: Automatic Cuff - Respirations Respiratory Rate: 16 Oxygen Delivery Method: Room Air O2 Sat by Pulse Oximetry: 98 - Blood Pressure Right Arm Blood Pressure: 121/71 Blood Pressure Mean: 87 Blood Pressure Source: Automatic Cuff Medical Screen Scoring (Pre) - Cervical Exam Dilation: 1-3 cm = 1 Membranes: Intact - Uterine Contractions Frequency: N/A Duration: N/A Intensity: N/A - Maternal Vital Signs Maternal Temperature: N/A Maternal Blood Pressure: N/A Signs of Preeclampsia: N/A Maternal Respirations: N/A - Pain Assessment Pain Location and Character: Pelvic Pain Scale Used: Numeric (1 - 10) Pain Intensity: 6 Pain Management Goal: 3 Pain Description: *Acute, Pressure Pain Radiation Location: none Pain Frequency: Frequent Pain Duration: 2 Pain Duration Units: Days Pain Behavior: None Exhibited Pain Aggravating Factors: Activity, Position Non-Pharmacological Interventions: Position/Reposition - Maternal Trauma Maternal Trauma: N/A - Assessment Baseline FHR: 140 Heart Rate - NICHD Category: Category I (Normal) = 0 NST: Reactive Position: N/A Station: N/A - Total Score Total Score (Pre): 1 - Level of Risk Level of Risk: Low (0-5) Physician Notification (Pre) - Physician Notified Physician Notified Date: 10/10/17 Physician Notified Time: 18:08 Physician/Practitioner Notifed:: Dr Alvarado Spoke With: Dr Alvarado New Order Received: Yes (dc home) - Notification Comment Comment: reviewed - amnisure test with dr alvarado and cervical exam, pt ok to dc home Disposition - Disposition OB Disposition: Discharge to home, Written follow up instructions reviewed Discharge Date: 10/10/17 Discharge Time: 18:15 I agree with the RN Medical Screening Exam: Yes Risk & Benefit of care provided described in d/c instruction: Yes Diagnosis: FALSE LABOR AT OR AFTER 37 COMPLETED WEEKS OF GESTATION
== END 2017-10-10 18:15 | disposition home or self-care (01) ==
LOC: FBPOP 17:35
PROVIDERS: ATTEND Obstetrics & Gynecology
DX: O47.1 False labor at or after 37 completed weeks of gestation (principal); Z3A.38 38 weeks gestation of pregnancy
CPT/HCPCS: 59025; 84112; 99213

== ENCOUNTER 2017-10-17 05:57 | Inpatient (IN) | payer BC, OTHER ==
[2017-10-17] MEDS ORDERED: TERBUTALINE 1 MG/ML VIAL SQ PRN (06:12)
[2017-10-17] MEDS ORDERED: OXYTOCIN 10 UNIT/ML 1 ML VIAL IM PRN (06:12)
[2017-10-17] MEDS ORDERED: LIDOCAINE 1% (PF) 10 MG/ML (30 ML SDV) SQ PRN (06:12)
[2017-10-17] MEDS ORDERED: METHYLERGONOVINE 0.2 MG/ML 1 ML AMP IM PRN (06:12)
[2017-10-17] MEDS ORDERED: CARBOPROST TROMETHAMINE 250 MCG/ML 1 ML AMP IM PRN (06:12)
[2017-10-17] MEDS ORDERED: OXYTOCIN 20 UNITS/1000 ML NS 1,000 ML IV SCH ×2 (06:15→13:00)
[2017-10-17 06:19] VITALS: BMI 32.4
[2017-10-17] MEDS: LACTATED RINGERS 1,000 ML IV SCH ×2 (06:23→09:13)
[2017-10-17 06:29] LABS: Basophils % (A) 0 %; Eosinophils # (A) 0.2 k/uL (0-0.7); Eosinophils % (A) 1 %; HCT 34.4 % (34.0-46.0); HGB 12.3 gm/dL (11.4-16.0); Lymphocytes % (A) 18 %; MCH 31.1 pg (25.0-35.0); MCHC 35.9 g/dL (31.0-37.0); MCV 86.6 fL (80.0-100.0); Mean Platelet Volume 8.3; Monocytes # (A) 0.7 k/uL (0-1.0); Monocytes % (A) 7 %; Neutrophils # (A) 7.7 k/uL (1.3-7.7); Neutrophils % (A) 71 %; Platelet Count 228 k/uL (150-450); RBC 3.97 m/uL (3.80-5.40); RDW 13.7 % (11.5-15.5); WBC 10.8 k/uL (3.8-10.6)
--- NOTE | 2017-10-17 07:11 | P.HPOB ---
History of Present Illness H&P Date: 10/17/17 Chief Complaint: Induction of labor 26 year old presents at 39 weeks for induction of labor. HEr cervix is 1-2/ 70/-2 and she is elizabeth irregularly. heart tones 130-135 with moderate variability and reactive. Review of Systems All systems: negative Constitutional: Denies chills, Denies fever Eyes: denies blurred vision, denies pain Ears, nose, mouth and throat: Denies headache, Denies sore throat Cardiovascular: Denies chest pain, Denies shortness of breath Respiratory: Denies cough Gastrointestinal: Denies abdominal pain, Denies diarrhea, Denies nausea, Denies vomiting Genitourinary: Denies dysuria, Denies hematuria Musculoskeletal: Denies myalgias Integumentary: Denies pruritus, Denies rash Neurological: Denies numbness, Denies weakness Psychiatric: Denies anxiety, Denies depression Endocrine: Denies fatigue, Denies weight change 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. OB history: She has had 2 SAB, 1 ectopic and 2 vaginal deliveries. This is her sixth and she has had care with me since 10 weeks. A+, abs neg, Rub Imm, HIV NR, Treponemal ab neg, Hep B neg. GBS neg. History of Any Multi-Drug Resistant Organisms: None Reported Additional Past Surgical History / Comment(s): D&C, EXPLORATORY LAP Past Anesthesia/Blood Transfusion Reactions: No Reported Reaction Past Psychological History: Anxiety, Depression, PTSD Additional Psychological History / Comment(s): sees Dr. Ms. Potter through [facility] Smoking Status: Current every day smoker Past Alcohol Use History: None Reported Additional Past Alcohol Use History / Comment(s): 1/2 pack per day Past Drug Use History: None Reported Additional Drug Use History / Comment(s): medical marijuana for ptsd. States she quit early . - Past Family History Sister(s) Family Medical History: Asthma Additional Family Medical History / Comment(s): aunt- thyroid disease Mother History Unknown: Yes Family Medical History: No Reported History Father History Unknown: Yes Family Medical History: No Reported History Medications and Allergies Home Medications Medication Instructions Recorded Confirmed Type Pedi Multivit No.25/Folic Acid 600 mcg PO DAILY 02/16/17 10/17/17 History [Flintstones Multivit Chew Tab] Acyclovir [Zovirax] 1 tab PO DAILY 10/17/17 10/17/17 History Allergies Allergy/AdvReac Type Severity Reaction Status Date / Time venom-honey bee Allergy Swelling Verified 10/17/17 06:11 Exam Osteopathic Statement: *. No significant issues noted on an osteopathic structural exam other than those noted in the History and Physical/Consult. - Vital Signs Vital signs: Vital Signs Temp Pulse Resp BP Pulse Ox 10/17/17 06:11 97.7 F 105 H 17 125/69 99 Intake and Output 10/16/17 10/17/17 10/17/17 22:59 06:59 14:59 Other: Weight 83.007 kg HEart: RRR Lungs: CTAB Abdomen: soft, nontender Extremeties: neg mckinley's Results Result Diagrams: 10/17/17 06:10 Abnormal Lab Results - Last 24 Hours (Table) 10/17/17 Range/Units 06:10 WBC 10.8 H (3.8-10.6) k/uL Assessment and Plan (1) Normal labor Current Visit: Yes Status: Acute Code(s): O80 - ENCOUNTER FOR FULL-TERM UNCOMPLICATED DELIVERY; Z37.9 - OUTCOME OF DELIVERY, UNSPECIFIED SNOMED Code(s ): 85746505 Plan: 1. induction of labor with amniotomy and pitocin 2. anticipate normal vaginal delivery
[2017-10-17] MEDS ORDERED: BUPIVACAINE (PF) 0.25% 30 ML VIAL ONE (08:58)
[2017-10-17] MEDS ORDERED: fentaNYL (PF) 50 MCG/ML 5 ML AMP ONE (08:58)
[2017-10-17] MEDS ORDERED: SODIUM CHLORIDE 0.9% 100 ML BAG ONE (08:58)
[2017-10-17] MEDS ORDERED: BUPIVACAINE (PF) 0.25% 25 ML, fentaNYL (PF) 200 MCG in SODIUM CHLORIDE 0.9% 71 ML EPIDURAL ONE (09:16)
[2017-10-17] MEDS ORDERED: LANOLIN CREAM 5 GM TUBE TOPICAL PRN (12:58)
[2017-10-17] MEDS ORDERED: HYDROCORTISONE 2.5% RECTAL CREAM 30 GM TUBE RECTAL PRN (12:58)
[2017-10-17] MEDS ORDERED: diphenhydrAMINE 25 MG CAP PO PRN (12:58)
[2017-10-17] MEDS ORDERED: WITCH HAZEL 1 EACH MED..PAD TOPICAL PRN (12:58)
[2017-10-17] MEDS ORDERED: SIMETHICONE 80 MG CHEWABLE PO PRN (12:58)
[2017-10-17] MEDS ORDERED: BENZOCAINE/MENTHOL SPRAY 1 GM/SPRAY AEROSOL TOPICAL PRN (12:58)
[2017-10-17] MEDS ORDERED: diphenhydrAMINE 50 MG/ML 1 ML VIAL IVP PRN ×2 (12:58)
[2017-10-17] MEDS ORDERED: diphenhydrAMINE 50 MG CAP PO PRN (12:58)
[2017-10-17] MEDS ORDERED: ACETAMINOPHEN TAB 325 MG TAB PO PRN (12:58)
[2017-10-17] MEDS ORDERED: ZOLPIDEM 5 MG TAB PO PRN (12:58)
--- NOTE | 2017-10-17 13:01 | P.PROBDLV ---
Vaginal Delivery Note - . Vaginal Delivery Note: 26-year-old presents at 39 weeks for induction of labor. Her cervix is 1- 2 cm dilated, 70% effaced, and -2 station. She was elizabeth irregularly. heart tones 130-135 with moderate variability and reactive. Pitocin was started and amniotomy was performed at 6:55 AM thin meconium fluid fluid noted. When she was about 3 cm dilated she did get an epidural and was comfortable. Her cervix was completely dilated at 12:41 PM. She pushed once and delivered a viable female over intact perineum under epidural anesthesia at 12:46 PM. Head delivered OA, anterior shoulder delivered gentle downward traction followed by posterior shoulder and rest of body. Nose mouth bulb suctioned, cord clamped and cut, infant placed mother's abdomen. Apgars 9, 9, weight 6 lbs. 14 oz. Placenta delivered spontaneously, intact with three-vessel cord at 1250. Vagina, cervix, and perineum were inspected. No lacerations noted. Estimated blood loss 150 mL. Mother and baby in stable condition.
[2017-10-17] MEDS: IBUPROFEN 600 MG TAB PO PRN (19:51)
[2017-10-17] MEDS: SENNOSIDES-DOCUSATE SODIUM 1 EACH TAB PO SCH (21:25)
[2017-10-18] MEDS: IBUPROFEN 600 MG TAB PO PRN (05:33)
[2017-10-18] MEDS: SENNOSIDES-DOCUSATE SODIUM 1 EACH TAB PO SCH (09:16)
[2017-10-18 10:09] VITALS: BP 123/78; PULSE 93; RESP 16; TEMP 97
--- NOTE | 2017-10-18 10:42 | P.DS ---
Providers Date of admission: 10/17/17 05:57 Expected date of discharge: 10/18/17 Attending physician: Ashley Camargo Primary care physician: Stated None Hospital Course: This is a 26 sterile female 6 para 2 at 39-0/7 weeks who presented for induction of labor. She delivered vaginally a viable female infant on 2017 with scores of 9 at 1 minute and 9 at 5 minutes and infant weight of 6 lbs. 14 oz. Her course has been uncomplicated. She is breast- feeding. Lochia is decreasing. Pain is fairly well controlled with oral pain medications. Vital signs are stable. Abdomen is soft with fundus firm and nontender. Extremities show negative Homans. Impression is status post vaginal delivery day #1. Plan is to discharge home today. Routine instructions are given. She is advised to follow up with Dr. Camargo in 6 weeks for her check. She is advised to call the office if she has any further questions or concerns prior to her appointment time. Procedures: Oxytocin induction of labor Spontaneous vaginal delivery of a viable female infant on 10/17/2017 Patient Condition at Discharge: Stable Plan - Discharge Summary New Discharge Prescriptions: New Ibuprofen [Motrin] 600 mg PO Q6HR PRN #60 tab PRN Reason: Mild Pain Or Fever >= 100.5 Continue Pedi Multivit No.25/Folic Acid [Flintstones Multivit Chew Tab] 600 mcg PO DAILY Discontinued Acyclovir [Zovirax] 1 tab PO DAILY Discharge Medication List Pedi Multivit No.25/Folic Acid [Flintstones Multivit Chew Tab] 600 mcg PO DAILY 02/16/17 [History] Ibuprofen [Motrin] 600 mg PO Q6HR PRN #60 tab 10/18/17 [Rx] Follow up Appointment(s)/Referral(s): Ashley Camargo DO [Doctor of Osteopathic Medicine] - 6 Weeks Activity/Diet/Wound Care/Special Instructions: Instructions 1. Do not begin any exercise program for 3 weeks. 2. Do not resume sexual relations for 3 weeks or longer if uncomfortable. 3. You may take tub baths or showers at any time. 4. You may use tampons if desired after 3 weeks. 5. Keep the area of episiotomy (stitches) clean and dry. 6. If you are not nursing, wear a good fitting, supportive bra during the day and limit fluid intake for at least 1 week to prevent breast engorgement. 7. Call the office, [phone], within the next week to make appointment for your 6 week checkup if it has not already been made. 8. Report any of the following occurrences to the doctor promptly: a. Heavy, excessive bleeding b. Chills, fever c. Burning or frequency of urination d. Pain or redness and breasts if nursing e. Increasing pain or swelling in episiotomy (stitches). In addition to the above instructions, the following additional should be followed: 1. No heavy lifting or straining (exercising) until after 6 week checkup. 2. Keep abdominal incision clean and dry: You may wear a dressing if more comfortable. 3. Make office appointment for 10 days after going home or as instructed by her doctor. Discharge Disposition: HOME SELF-CARE
== END 2017-10-18 13:56 | disposition home or self-care (01) | DRG 775 ==
LOC: 4FBP 05:57
PROVIDERS: ADMIT Obstetrics & Gynecology; ATTEND Obstetrics & Gynecology
PROC: 10E0XZZ Delivery of Products of Conception, External Approach (ICD-10-PCS; principal; 2017-10-17)
PROC: 10907ZC Drainage of Amniotic Fluid, Therapeutic from Products of Conception, Via Natural or Artificial Opening (ICD-10-PCS; 2017-10-17)
PROC: 00HU33Z Insertion of Infusion Device into Spinal Canal, Percutaneous Approach (ICD-10-PCS; 2017-10-17)
PROC: 3E0R3NZ Introduction of Analgesics, Hypnotics, Sedatives into Spinal Canal, Percutaneous Approach (ICD-10-PCS; 2017-10-17)
DX: O99.334 Smoking (tobacco) complicating childbirth (principal); O99.344 Other mental disorders complicating childbirth; F17.210 Nicotine dependence, cigarettes, uncomplicated; O77.0 Labor and delivery complicated by meconium in amniotic fluid; F43.10 Post-traumatic stress disorder, unspecified; Z86.59 Personal history of other mental and behavioral disorders; Z82.5 Family history of asthma and other chronic lower respiratory diseases; Z87.09 Personal history of other diseases of the respiratory system; Z87.19 Personal history of other diseases of the digestive system; Z86.19 Personal history of other infectious and parasitic diseases; Z83.49 Family history of other endocrine, nutritional and metabolic diseases; Z79.899 Other long term (current) drug therapy; Z91.030 Bee allergy status; Z37.0 Single live birth; Z3A.39 39 weeks gestation of pregnancy
CPT/HCPCS: 85025; 88307

== ENCOUNTER 2018-04-25 15:22 | Emergency (ER) | payer BC, OTHER ==
[2018-04-25] MEDS ORDERED: SODIUM CHLORIDE 0.9% 1,000 ML IV STA (16:35)
--- NOTE | 2018-04-25 17:07 | ED ---
Abdominal Pain HPI - General Chief Complaint: Upper Respiratory Infection Stated Complaint: Chest pain Time Seen by Provider: 04/25/18 16:12 Source: patient Mode of arrival: ambulatory Limitations: no limitations - History of Present Illness Initial Comments: 27-year-old female with PMH ectopic presenting for cc of congestion, hoarsness, sore throat and lower rib pain with deep inspiration and cough x 2 days. Pt patient states that she noticed congestion, cough mild hoarseness of her voice and sore throat for the past 2 days. Today she notes increase in sputum and was concerned for possible pneumonia. Patient denies bodyaches, pain , difficulty swallowing, fever, chills night sweats. Patient does admit to sick contacts at work with colleagues with similar symptoms. Upon arrival patient's heart rate elevated at 113, oxygen saturation 99% on room air, afebrile. Repeat HR 68. Patient denies any recent shortness of breath, dyspnea on exertion, chest pain, back pain, abdominal pain, nausea or vomiting, numbness or tingling, dysuria or hematuria, constipation or diarrhea, headaches or visual changes, or any other complaints. - Related Data Home Medications Medication Instructions Recorded Confirmed Pedi Multivit No.25/Folic Acid 600 mcg PO DAILY 02/16/17 10/17/17 [Flintstones Multivit Chew Tab] Previous Rx's Medication Instructions Recorded Ibuprofen [Motrin] 600 mg PO Q6HR PRN #60 tab 10/18/17 Benzonatate [Tessalon Perles] 100 mg PO BID 7 Days #14 capsule 04/25/18 Loratadine [Claritin] 5 mg PO DAILY 7 Days #7 tab 04/25/18 Allergies Allergy/AdvReac Type Severity Reaction Status Date / Time venom-honey bee Allergy Swelling Verified 04/25/18 15:29 Review of Systems ROS Statement: Those systems with pertinent positive or pertinent negative responses have been documented in the HPI. ROS Other: All systems not noted in ROS Statement are negative. Constitutional: Denies: fever, chills, night sweats Eyes: Denies: eye pain ENT: Reports: throat pain. Denies: ear pain, dental pain, hearing loss Respiratory: Reports: cough. Denies: dyspnea, wheezes, hemoptysis, stridor Cardiovascular: Reports: as per HPI. 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 OB history: She has had 2 SAB, 1 ectopic and 2 vaginal deliveries. This is her sixth and she has had care with me since 10 weeks. A+, abs neg, Rub Imm, HIV NR, Treponemal ab neg, Hep B neg. GBS neg. History of Any Multi-Drug Resistant Organisms: None Reported Additional Past Surgical History / Comment(s): D&C, EXPLORATORY LAP Past Anesthesia/Blood Transfusion Reactions: No Reported Reaction Past Psychological History: Anxiety, Depression, PTSD Smoking Status: Current every day smoker Past Alcohol Use History: None Reported Past Drug Use History: None Reported - Past Family History Sister(s) Family Medical History: Asthma Additional Family Medical History / Comment(s): aunt- thyroid disease Mother History Unknown: Yes Family Medical History: No Reported History Father History Unknown: Yes Family Medical History: No Reported History General Exam - General Exam Comments Initial Comments: General: The patient is awake and alert, in no distress, and does not appear acutely ill. Eye: Pupils are equal, round and reactive to light, extra-ocular movements are intact. No nystagmus. There is normal conjunctiva bilaterally. No signs of icterus. Ears, nose, mouth and throat: There are moist mucous membranes and no oral lesions. Oropharynx erythematous, there is no tonsillar enlargement, or exudates. Postnasal drip. Hoarseness of voice. No tripoding, drooling or signs of icterus or distress.Tympanic membranes pearly, cone of light and malleus present bilaterally. There are no signs of retraction, effusion or erythema. External auditory canal within normal limits bilaterally no edema or erythema. Neck: The neck is supple, there is no tenderness or JVD. No palpable anterior cervical lymphadenopathy. Cardiovascular: There is a regular rate and rhythm. No murmur, rub or gallop is appreciated. Respiratory: No cyanosis, retractions or abdominal breathing. Lungs are clear to auscultation, respirations are non-labored, breath sounds are equal. No wheezes, stridor, rales, or rhonchi. Respiratory expansion equally bilaterally. Negative egophony in all lung mills. Gastrointestinal: Soft, non-distended, non-tender abdomen without masses or organomegaly noted. There is no rebound or guarding present. Bowel sounds are unremarkable. Musculoskeletal: Normal ROM, no tenderness. Strength 5/5. Sensation intact. Radial pulses equal bilaterally 2+. Neurological: A&O x 3. CN II-XII intact, There are no obvious motor or sensory deficits. Coordination appears grossly intact. Speech is normal. Skin: Skin is warm and dry and no rashes or lesions are noted. (-) Homans, no pain to palpation of the deep venous system of the UE and LE bilaterally. Psychiatric: Cooperative, appropriate mood & affect, normal judgment. Limitations: no limitations Course Vital Signs 04/25/18 04/25/18 04/25/18 15:27 18:04 19:13 Temperature 98.6 F 98.1 F Pulse Rate 113 H 68 60 Respiratory 20 18 18 Rate Blood Pressure 126/75 124/70 143/87 O2 Sat by Pulse 99 99 98 Oximetry Medical Decision Making - Medical Decision Making Given pain with deep inspiration D-dimer and CXR obtained. No clinical signs of DVT or pneumonia at this time. Pt intial HR 114 however repeat 68. Pt O2 saturation 99% on RA. Given HX of URI symptoms and sick contacts I feel another diagnosis more likely than pulmonary embolism at this time, in addition pt denied any dyspnea or dsypnea on exertion. No signs or symptoms concerning for ACS given pt risk factors/cc. Pt agreed further evaluation discussed in detail and was deferred at this time. Physical exam unremarkable aside from voice hoarseness, mild oropharynx erythema with post nasal drip. Pt will be treated symptomatically for larygnitis and upper respiratory infection. Pt requested a work note stating she left early today. Case discussed with Dr. Bailey who agrees with impression and plan. Pt d/c in stable condition. - Lab Data Result diagrams: 04/25/18 18:00 04/25/18 18:00 Lab Results 04/25/18 04/25/18 04/25/18 Range/Units 17:05 18:00 18:00 WBC 10.5 (3.8-10.6) k/uL RBC 4.84 (3.80-5.40) m/uL Hgb 15.1 (11.4-16.0) gm/dL Hct 42.6 (34.0-46.0) % MCV 87.9 (80.0-100.0) fL MCH 31.1 (25.0-35.0) pg MCHC 35.4 (31.0-37.0) g/dL RDW 12.9 (11.5-15.5) % Plt Count 280 (150-450) k/uL Neutrophils % 69 % Lymphocytes % 21 % Monocytes % 6 % Eosinophils % 2 % Basophils % 0 % Neutrophils # 7.3 (1.3-7.7) k/uL Lymphocytes # 2.2 (1.0-4.8) k/uL Monocytes # 0.6 (0-1.0) k/uL Eosinophils # 0.2 (0-0.7) k/uL Basophils # 0.0 (0-0.2) k/uL D-Dimer (<0.60) mg/L FEU Sodium 140 (137-145) mmol/L Potassium 4.6 (3.5-5.1) mmol/L Chloride 109 H (98-107) mmol/L Carbon Dioxide 21 L (22-30) mmol/L Anion Gap 10 mmol/L BUN 12 (7-17) mg/dL Creatinine 0.70 (0.52-1.04) mg/dL Est GFR (CKD-EPI)AfAm >90 (>60 ml/min/1.73 sqM) Est GFR (CKD-EPI)NonAf >90 (>60 ml/min/1.73 sqM) Glucose 88 (74-99) mg/dL Calcium 9.8 (8.4-10.2) mg/dL Total Bilirubin 0.5 (0.2-1.3) mg/dL AST 25 (14-36) U/L ALT 33 (9-52) U/L Alkaline Phosphatase 37 L (38-126) U/L Total Protein 7.1 (6.3-8.2) g/dL Albumin 4.3 (3.5-5.0) g/dL Urine HCG, Qual Not Detected (Not Detectd) 04/25/18 Range/Units 18:00 WBC (3.8-10.6) k/uL RBC (3.80-5.40) m/uL Hgb (11.4-16.0) gm/dL Hct (34.0-46.0) % MCV (80.0-100.0) fL MCH (25.0-35.0) pg MCHC (31.0-37.0) g/dL RDW (11.5-15.5) % Plt Count (150-450) k/uL Neutrophils % % Lymphocytes % % Monocytes % % Eosinophils % % Basophils % % Neutrophils # (1.3-7.7) k/uL Lymphocytes # (1.0-4.8) k/uL Monocytes # (0-1.0) k/uL Eosinophils # (0-0.7) k/uL Basophils # (0-0.2) k/uL D-Dimer 0.32 (<0.60) mg/L FEU Sodium (137-145) mmol/L Potassium (3.5-5.1) mmol/L Chloride (98-107) mmol/L Carbon Dioxide (22-30) mmol/L Anion Gap mmol/L BUN (7-17) mg/dL Creatinine (0.52-1.04) mg/dL Est GFR (CKD-EPI)AfAm (>60 ml/min/1.73 sqM) Est GFR (CKD-EPI)NonAf (>60 ml/min/1.73 sqM) Glucose (74-99) mg/dL Calcium (8.4-10.2) mg/dL Total Bilirubin (0.2-1.3) mg/dL AST (14-36) U/L ALT (9-52) U/L Alkaline Phosphatase (38-126) U/L Total Protein (6.3-8.2) g/dL Albumin (3.5-5.0) g/dL Urine HCG, Qual (Not Detectd) Disposition Clinical Impression: Upper respiratory infection with cough and congestion, Laryngitis Disposition: HOME SELF-CARE Condition: Good Instructions: Upper Respiratory Infection (ED) Additional Instructions: Please use medication as discussed. Please follow-up with family doctor in the next 2 days. Please return to emergency room if the symptoms increase or worsen or for any other concerns. Prescriptions: Benzonatate [Tessalon Perles] 100 mg PO BID 7 Days #14 capsule Loratadine [Claritin] 5 mg PO DAILY 7 Days #7 tab Is patient prescribed a controlled substance at d/c from ED?: No Referrals: Irlanda Galicia MD [Primary Care Provider] - 1-2 days Time of Disposition: 18:49
--- NOTE | 2018-04-25 18:01 | XR ---
EXAMINATION TYPE: XR chest 2V DATE OF EXAM: 04/25/2018 COMPARISON: 06/03/2014 HISTORY: Abdominal pain, back pain, cough and congestion TECHNIQUE: Frontal and lateral views of the chest are obtained. FINDINGS: There is no focal air space opacity, pleural effusion, or pneumothorax seen. The cardiac silhouette size is within normal limits. The osseous structures are intact. IMPRESSION: No acute cardiopulmonary process.
[2018-04-25 18:05] VITALS: RESP 18
[2018-04-25 18:25] LABS: Basophils % (A) 0 %; Eosinophils # (A) 0.2 k/uL (0-0.7); Eosinophils % (A) 2 %; HCT 42.6 % (34.0-46.0); HGB 15.1 gm/dL (11.4-16.0); Lymphocytes # (A) 2.2 k/uL (1.0-4.8); Lymphocytes % (A) 21 %; MCH 31.1 pg (25.0-35.0); MCHC 35.4 g/dL (31.0-37.0); MCV 87.9 fL (80.0-100.0); Mean Platelet Volume 7.9; Monocytes # (A) 0.6 k/uL (0-1.0); Monocytes % (A) 6 %; Neutrophils # (A) 7.3 k/uL (1.3-7.7); Neutrophils % (A) 69 %; Platelet Count 280 k/uL (150-450); RBC 4.84 m/uL (3.80-5.40); RDW 12.9 % (11.5-15.5); WBC 10.5 k/uL (3.8-10.6)
[2018-04-25 18:39] LABS: ALT 33 U/L (9-52); AST 25 U/L (14-36); Albumin 4.3 g/dL (3.5-5.0); Alkaline Phosphatase 37 U/L (38-126); Anion Gap 10 mmol/L; Blood Urea Nitrogen 12 mg/dL (7-17); Calcium 9.8 mg/dL (8.4-10.2); Carbon Dioxide 21 mmol/L (22-30); Chloride 109 mmol/L (98-107); Glucose 88 mg/dL (74-99); Potassium 4.6 mmol/L (3.5-5.1); Sodium 140 mmol/L (137-145); Total Bilirubin 0.5 mg/dL (0.2-1.3); Total Protein 7.1 g/dL (6.3-8.2)
[2018-04-25 19:26] VITALS: BP 143/87; PULSE 60; TEMP 98.1
== END 2018-04-25 19:13 | disposition home or self-care (01) ==
LOC: EC 15:22
DX: J06.9 Acute upper respiratory infection, unspecified (principal); J04.0 Acute laryngitis; K21.9 Gastro-esophageal reflux disease without esophagitis; F17.200 Nicotine dependence, unspecified, uncomplicated; Z82.5 Family history of asthma and other chronic lower respiratory diseases; Z91.030 Bee allergy status
CPT/HCPCS: 36415; 71046; 80053; 81025; 85025; 85379; 99285

== ENCOUNTER → 2018-09-01 | Outpatient (CLI) | payer OTHER | END | disposition home or self-care (01) | LOC: LABWHC1 11:01 | PROVIDERS: ATTEND Obstetrics & Gynecology | DX: N91.2 Amenorrhea, unspecified (principal) | CPT/HCPCS: 36415; 84702 ==

== ENCOUNTER 2018-11-03 14:14 | Emergency (ER) | payer OTHER ==
[2018-11-03 14:35] VITALS: BP 126/69; PULSE 94; RESP 16; TEMP 98.3
--- NOTE | 2018-11-03 14:51 | ED ---
General Adult HPI - General Chief complaint: Extremity Injury, Upper Stated complaint: Swollen arm, poss blood clot Time Seen by Provider: 11/03/18 14:35 Source: patient, RN notes reviewed, old records reviewed Mode of arrival: ambulatory Limitations: no limitations - History of Present Illness Initial comments: 28-year-old female patient presents to ED with bruising her left antecubital region. Patient reports that she was donating plasma yesterday afterwards she developed a bruise where the needle was. Patient reports this bruise has gotten worse within the last 24 hours. Patient reports for evaluation. Patient denies any other complaints. Patient denies chest pain, shortness of breath, abdominal pain, nausea vomiting or diarrhea. Systemic: Pt denies fatigue, myalgia, fever/chills, rash. Pt denies weakness, night sweats, weight loss. Neuro: Pt denies headache, visual disturbances, syncope or pre-syncope. HEENT: Pt denies ocular discharge or irritation, otalgia, rhinorrhea, pharyngitis or notable lymphadenopathy. Cardiopulmonary: Pt denies chest pain, SOB, heart palpitations, dyspnea on exertion. Abdominal/GI: Pt denies abdominal pain, n/v/d. : Pt denies dysuria, burning w/ urination, frequency/urgency. Denies new onset urinary or bowel incontinence. MSK: Pt denies myalgia, loss of strength or function in extremities. Neuro: Pt denies new onset weakness, paresthesias. - Related Data Home Medications Medication Instructions Recorded Confirmed Acetaminophen Tab [Tylenol Tab] 650 mg PO Q4H PRN 10/12/18 10/12/18 Ibuprofen [Motrin Ib] 400 mg PO Q6H PRN 10/12/18 10/12/18 Previous Rx's Medication Instructions Recorded Ibuprofen [Motrin] 600 mg PO Q8HR PRN #30 tab 10/12/18 Ondansetron Odt [Zofran Odt] 4 mg PO Q8HR PRN #10 tab 10/12/18 Sulfamethox-Tmp 800-160Mg [Bactrim 1 each PO Q12HR #10 tab 10/12/18 Ds] Allergies Allergy/AdvReac Type Severity Reaction Status Date / Time venom-honey bee Allergy Swelling Verified 11/03/18 14:34 Review of Systems ROS Statement: Those systems with pertinent positive or pertinent negative responses have been documented in the HPI. ROS Other: All systems not noted in ROS Statement are negative. 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 OB history: She has had 2 SAB, 1 ectopic and 2 vaginal deliveries. This is her sixth and she has had care with me since 10 weeks. A+, abs neg, Rub Imm, HIV NR, Treponemal ab neg, Hep B neg. GBS neg. History of Any Multi-Drug Resistant Organisms: None Reported Additional Past Surgical History / Comment(s): D&C, EXPLORATORY LAP Past Anesthesia/Blood Transfusion Reactions: No Reported Reaction Past Psychological History: Anxiety, Depression, PTSD Smoking Status: Current every day smoker Past Alcohol Use History: Rare Past Drug Use History: Marijuana - Past Family History Sister(s) Family Medical History: Asthma Additional Family Medical History / Comment(s): aunt- thyroid disease Mother History Unknown: Yes Family Medical History: No Reported History Father History Unknown: Yes Family Medical History: No Reported History General Exam - General Exam Comments Initial Comments: Constitutional: NAD, AOX3, Pt has pleasant affect. HEENT: NC/AT, trachea midline, neck supple, no lymphadenopathy. Posterior pharynx non erythematous, without exudates. External ears appear normal, without discharge. Mucous membranes moist. Eyes PERRLA, EOM intact. There is no scleral icterus. No pallor noted. Cardiopulmonary: RRR, no murmurs, rubs or gallops, no JVD noted. Lungs CTAB in anterior and posterior mills. No peripheral edema. Abdominal exam: Abdomen soft and non-distended. Abdomen non-tender to palpation in all 4 quadrants. Bowel sounds active in LLQ. No hepatosplenomegaly. No ecchymosis Neuro: CN II-XII grossly intact. No nuchal rigidity. MSK: Mild ecchymoses noted in left antecubital region. No erythema, no palpable cord, distal pulses intact and equal. Cap refill less than 2 seconds. No posterior calf tenderness bilaterally, homans sign negative bilaterally. Posterior tibialis and radial pulse +2 bilaterally. Sensation intact in upper and lower extremities. Full active ROM in upper and lower extremities, 5/5 stregnth. Limitations: no limitations Course Vital Signs 11/03/18 14:31 Temperature 98.3 F Pulse Rate 94 Respiratory 16 Rate Blood Pressure 126/69 O2 Sat by Pulse 98 Oximetry Medical Decision Making - Medical Decision Making 28-year-old female patient presents to ED with bruising her left antecubital region. Patient reports that she was donating plasma yesterday afterwards she developed a bruise where the needle was. Patient reports this bruise has gotten worse within the last 24 hours. Patient reports for evaluation. Patient denies any other complaints. Patient denies chest pain, shortness of breath, abdominal pain, nausea vomiting or diarrhea. Pt VSS, afebrile. Physical exam displayed: Mild ecchymoses noted in left antecubital region. No erythema, no palpable cord, distal pulses intact and equal. Cap refill less than 2 seconds. Patient to be discharged, will continue to monitor symptoms. Patient is warm compress. Patient to follow up with primary care provider in 1-2 days. Patient return to ER if redness, worsening pain, palpable cords develop. Case discussed with Dr. Kulkarni. Disposition Clinical Impression: Ecchymosis of wrist Disposition: HOME SELF-CARE Condition: Stable Instructions (If sedation given, give patient instructions): Ecchymosis (ED) Additional Instructions: Patient to adhere to previously discussed treatment plan and will take medication(s) as directed. Patient to follow up with PCP in 1-2 days. Patient to return to ED if symptoms do not improve. May use warm compress. Monitor for signs including redness, worsening pain, palpable heart cord. Return to ER if any of these signs develop or if condition worsens in any way. Is patient prescribed a controlled substance at d/c from ED?: No Referrals: Irlanda Galicia MD [Primary Care Provider] - 1-2 days
== END 2018-11-03 15:01 | disposition home or self-care (01) ==
LOC: EC 14:14
DX: L76.32 Postprocedural hematoma of skin and subcutaneous tissue following other procedure (principal); Y84.8 Other medical procedures as the cause of abnormal reaction of the patient, or of later complication, without mention of misadventure at the time of the procedure; F17.200 Nicotine dependence, unspecified, uncomplicated; Z91.030 Bee allergy status
CPT/HCPCS: 99283

== ENCOUNTER 2018-12-28 08:14 | Emergency (ER) | payer OTHER ==
[2018-12-28 08:20] VITALS: BP 121/75; PULSE 84; RESP 18; TEMP 98.5
[2018-12-28] MEDS ORDERED: PROPARACAINE 0.5% OPHTH DROPS 15 ML BTL RIGHT EYE STA (08:30)
[2018-12-28] MEDS ORDERED: TOBRAMYCIN 0.3% OPHTH DROPS 5 ML BTL RIGHT EYE STA (08:30)
[2018-12-28] MEDS ORDERED: DIPH,PERTUS(ACELL)TETVAC-LF 0.5 ML VIAL IM ONE (08:42)
[2018-12-28] MEDS ORDERED: TOBRAMYCIN 0.3% OPHTH OINT 3.5 GM TUBE RIGHT EYE STA (08:58)
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
== END 2018-12-28 09:41 | disposition home or self-care (01) ==
LOC: EC 08:14
DX: T26.01XA Burn of right eyelid and periocular area, initial encounter (principal); F17.200 Nicotine dependence, unspecified, uncomplicated; Z53.8 Procedure and treatment not carried out for other reasons; Z23 Encounter for immunization; Z88.6 Allergy status to analgesic agent; Z91.030 Bee allergy status; X08.8XXA Exposure to other specified smoke, fire and flames, initial encounter
CPT/HCPCS: 90471; 90715; 99283

== ENCOUNTER 2019-02-08 15:52 | Emergency (ER) | payer OTHER ==
[2019-02-08 16:33] VITALS: RESP 20
[2019-02-08] MEDS ORDERED: MORPHINE SULFATE 4 MG/ML SYRINGE IM STA (17:10)
[2019-02-08] MEDS ORDERED: LIDOCAINE 5% PATCH TOPICAL STA (17:10)
--- NOTE | 2019-02-08 17:35 | ED ---
General Adult HPI - General Chief complaint: Abdominal Pain Stated complaint: flank pain Time Seen by Provider: 02/08/19 16:35 Source: patient Mode of arrival: ambulatory Limitations: no limitations - History of Present Illness Initial comments: The patient is a 20-year-old female who presents to the emergency room with reported low back pain with radiation to her right groin. She admits that the symptoms were sudden onset today while she was at home. She reports she was getting dressed for work when she heard a popping sensation in her right lower back. The pain was so excruciating that it took her to the ground. She states that the pain radiates to her right inguinal region. She denies any weakness, numbness or tingling in her lower extremity. She was able to ambulate into the emergency department. She denies any bowel or bladder incontinence. No saddle anesthesia. No history of fevers or chills. She does not use any intravenous drugs. No history of chronic back pain or blunt trauma. She denies any anterior abdominal pain. No diarrhea, constipation, melanotic stools or hematochezia. She denies any changes in her urination to include dysuria, hematuria or difficulty voiding. She does report that there is possibility that she could be . She has missed her Depo-Medrol shots and does have unprotected intercourse. There are no other alleviating, precipitating or modifying factors. - Related Data Home Medications Medication Instructions Recorded Confirmed Ibuprofen [Motrin Ib] 400 mg PO Q6HR PRN 02/08/19 02/08/19 Previous Rx's Medication Instructions Recorded Hydrocodone/Acetaminophen [[place] 1 tab PO Q6HR PRN #12 tab 02/08/19 5-325] Lidocaine 5% Patch [Lidoderm 5% 1 patch TOPICAL DAILY #20 patch 02/08/19 Patch] predniSONE 20 mg PO BID 5 Days #10 tab 02/08/19 Allergies Allergy/AdvReac Type Severity Reaction Status Date / Time phenazopyridine Allergy Rash/Hives Verified 02/08/19 17:00 [From Pyridium] venom-honey bee Allergy Swelling Verified 02/08/19 17:00 Review of Systems ROS Statement: Those systems with pertinent positive or pertinent negative responses have been documented in the HPI. ROS Other: All systems not noted in ROS Statement are negative. 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 OB history: She has had 2 SAB, 1 ectopic and 2 vaginal deliveries. This is her sixth and she has had care with me since 10 weeks. A+, abs neg, Rub Imm, HIV NR, Treponemal ab neg, Hep B neg. GBS neg. History of Any Multi-Drug Resistant Organisms: None Reported Additional Past Surgical History / Comment(s): D&C, EXPLORATORY LAP Past Anesthesia/Blood Transfusion Reactions: No Reported Reaction Past Psychological History: Anxiety, Depression, PTSD Smoking Status: Current every day smoker Past Alcohol Use History: Rare Past Drug Use History: Marijuana - Past Family History Sister(s) Family Medical History: Asthma Additional Family Medical History / Comment(s): aunt- thyroid disease Mother History Unknown: Yes Family Medical History: No Reported History Father History Unknown: Yes Family Medical History: No Reported History General Exam Limitations: no limitations General appearance: alert, anxious, in distress, other (crying) Head exam: Present: atraumatic, normocephalic, normal inspection Eye exam: Present: normal appearance, PERRL, EOMI. Absent: scleral icterus, conjunctival injection, periorbital swelling ENT exam: Present: normal exam, mucous membranes moist Neck exam: Present: normal inspection. Absent: tenderness, meningismus, lymphadenopathy Respiratory exam: Present: normal lung sounds bilaterally. Absent: respiratory distress, wheezes, rales, rhonchi, stridor Cardiovascular Exam: Present: regular rate, normal rhythm, normal heart sounds. Absent: systolic murmur, diastolic murmur, rubs, gallop, clicks GI/Abdominal exam: Present: soft, normal bowel sounds. Absent: distended, tenderness, guarding, rebound, rigid Extremities exam: Present: normal inspection, full ROM, normal capillary refill, other (5/5 muscle strength in the b/l lower extremities. The patient is ambulatory in the ED. 2+ DP and PT pulses. Intact 2 point discrimination and soft touch. ). Absent: tenderness, pedal edema, joint swelling, calf tenderness Back exam: Present: tenderness, CVA tenderness (R), paraspinal tenderness Neurological exam: Present: alert, oriented X3, CN II-XII intact Psychiatric exam: Present: normal affect, normal mood Skin exam: Present: warm, dry, intact, normal color. Absent: rash Course Vital Signs 02/08/19 02/08/19 16:30 20:43 Temperature 98.4 F 98.1 F Pulse Rate 101 H 95 Respiratory 20 20 Rate Blood Pressure 138/97 135/92 O2 Sat by Pulse 97 98 Oximetry Medical Decision Making - Medical Decision Making Upon arrival the patient is placed into room 22. She is hooked up to continuous pulse ox and cardiac monitoring. The patient was provided with a Lidoderm patch. I also provided her with 4 mg of morphine IM. I recommended a CT of her lumbar spine. She also provided a urine sample for testing. Upon return of the results, I did discuss them with the patient. She is reevaluated and is now resting more comfortable in bed. She does graded her pain as 6 out of 10. Because of this I did provide the patient with a muscle relaxer. I also provided her with 60 mg of prednisone. I did discuss diagnosis, differential and treatment options. At this time the patient will be given a prescription for [place]. A an opiate start talking form is signed by the patient. She'll be given a prescription for prednisone 20 mg to be taken twice a day for the next 5 days. She is also given a prescription for Lidoderm patches. She will follow up with her primary care doctor in 1-2 days. There is possibility that she may need an MRI of her spine. She is to rest and place warm compresses to the site. The patient is given a work note. She is to not participate in heavy lifting or bending. She did understand this. If she has any new or worsening symptoms she needs to return to the emergency department. Patient was in agreement with the treatment plan and she is discharged home ambulatory in stable condition - Differential Diagnosis acute lumbar strain, herniated disc, lumbar radiculopathy - Lab Data Lab Results 02/08/19 Range/Units 17:30 Urine HCG, Qual Not Detected (Not Detectd) Disposition Clinical Impression: Lumbar radiculopathy Disposition: HOME SELF-CARE Condition: Stable Instructions (If sedation given, give patient instructions): Lumbar Radiculopathy (ED) Additional Instructions: Please follow-up with your primary care physician in one to 2 days. You may require further evaluation to include an MRI. Rest and use a heating pad to the site. No heavy lifting or bending. Use the [place] as needed. Do not take any NSAIDs with the steroids. Do not take any extra Tylenol with the [place]. Return to the emergency room if you have any new or worsening symptoms Prescriptions: Lidocaine 5% Patch [Lidoderm 5% Patch] 1 patch TOPICAL DAILY #20 patch Hydrocodone/Acetaminophen [[place] 5-325] 1 tab PO Q6HR PRN #12 tab PRN Reason: Pain predniSONE 20 mg PO BID 5 Days #10 tab Is patient prescribed a controlled substance at d/c from ED?: Yes When asked, does pt state using other controlled substances?: No If prescribed controlled substance>3 days was MAPS reviewed?: Prescribed <3 Days If opioid is for acute pain is fill amount 7 days or less?: Yes If Rx opioid, was Start Talking consent form obtained?: Yes Referrals: Irlanda Galicia MD [Primary Care Provider] - 1-2 days Time of Disposition: 20:07
--- NOTE | 2019-02-08 19:23 | CT ---
EXAMINATION TYPE: CT lumbar spine wo con DATE OF EXAM: 02/08/2019 6:45 PM COMPARISON: None. HISTORY: Lower back pain that radiates anteriorly CT DLP: 592.2 mGycm Automated exposure control for dose reduction was used. Unenhanced CT of the lumbar spine was performed. Bone and soft tissue window settings are submitted as well as coronal and sagittal reconstructions. There are 5 lumbar type vertebra assuming bilateral hypoplastic T12 ribs. Alignment is satisfactory. No acute fracture or dislocation is seen. Vertebral body heights and disc space heights are maintaine d. No large disc herniations are present on sagittal or axial images. No suspicious finding identified in the visualized abdomen. IMPRESSION: Unremarkable study. If symptoms persist consider MRI follow-up.
[2019-02-08] MEDS ORDERED: METHOCARBAMOL 750 MG TAB PO STA (20:01)
[2019-02-08] MEDS ORDERED: predniSONE 20 MG TAB PO STA (20:07)
[2019-02-08 20:44] VITALS: BP 135/92; PULSE 95; TEMP 98.1
== END 2019-02-08 20:44 | disposition home or self-care (01) ==
LOC: EC 15:52
DX: M54.16 Radiculopathy, lumbar region (principal); F17.200 Nicotine dependence, unspecified, uncomplicated; Z88.6 Allergy status to analgesic agent; Z91.030 Bee allergy status
CPT/HCPCS: 81025; 72131; 99284; 96372; J2270; J7512

== ENCOUNTER 2019-04-07 11:08 | Emergency (ER) | payer OTHER ==
[2019-04-07] MEDS ORDERED: SODIUM CHLORIDE 0.9% 1,000 ML IV STA (11:52)
[2019-04-07 12:22] LABS: Appearance,Urine Clear (Clear); Bilirubin,Urine Negative (Negative); Blood,Urine Negative (Negative); Color,Urine Light Yellow; Glucose,Urine (UA) Negative (Negative); Ketones,Urine Negative (Negative); Leukocyte Esterase,Urine Negative (Negative); Nitrite,Urine Negative (Negative); PH, Urine 7.5 (5.0-8.0); Protein,Urine Negative (Negative); Specific Gravity,Urine 1.004 (1.001-1.035); Urobilinogen,Urine <2.0 mg/dL (<2.0)
--- NOTE | 2019-04-07 12:28 | ED ---
General Adult HPI - General Chief complaint: Abdominal Pain Stated complaint: 5wks preg, cramping Time Seen by Provider: 04/07/19 11:34 Source: patient, RN notes reviewed Mode of arrival: ambulatory Limitations: no limitations - History of Present Illness Initial comments: 28-year-old with history of ectopic presents to the emergency department for a chief complaint of right lower quadrant pain. Patient states she believes she is about 5 weeks with a last menstrual period of 02/23/2019. Patient usually follows with Dr. Camargo. Patient states this pain started 2 days ago and is getting worse. States she has a history of ectopic so is concerned that this could be recurrence. States she did try to follow-up with her [facility] that she was not in the office today. Denies nausea vomiting. Denies any vaginal bleeding. Denies fevers or chills. Patient has no other complaints at this time including shortness of breath, chest pain, nausea or vomiting, headache, or visual changes. - Related Data Home Medications Medication Instructions Recorded Confirmed No Known Home Medications 04/07/19 04/07/19 Allergies Allergy/AdvReac Type Severity Reaction Status Date / Time phenazopyridine Allergy Rash/Hives Verified 04/07/19 11:28 [From Pyridium] venom-honey bee Allergy Swelling Verified 04/07/19 11:28 Review of Systems ROS Statement: Those systems with pertinent positive or pertinent negative responses have been documented in the HPI. ROS Other: All systems not noted in ROS Statement are negative. 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 OB history: She has had 2 SAB, 1 ectopic and 2 vaginal deliveries. This is her sixth and she has had care with me since 10 weeks. A+, abs neg, Rub Imm, HIV NR, Treponemal ab neg, Hep B neg. GBS neg. History of Any Multi-Drug Resistant Organisms: None Reported Additional Past Surgical History / Comment(s): D&C, EXPLORATORY LAP Past Anesthesia/Blood Transfusion Reactions: No Reported Reaction Past Psychological History: Anxiety, Depression, PTSD Smoking Status: Current every day smoker Past Alcohol Use History: Rare Past Drug Use History: Marijuana - Past Family History Sister(s) Family Medical History: Asthma Additional Family Medical History / Comment(s): aunt- thyroid disease Mother History Unknown: Yes Family Medical History: No Reported History Father History Unknown: Yes Family Medical History: No Reported History General Exam Limitations: no limitations General appearance: alert, in no apparent distress Head exam: Present: atraumatic, normocephalic, normal inspection Eye exam: Present: normal appearance, PERRL, EOMI. Absent: scleral icterus, conjunctival injection, periorbital swelling ENT exam: Present: normal exam, mucous membranes moist Neck exam: Present: normal inspection, full ROM. Absent: tenderness, meningismus, lymphadenopathy Respiratory exam: Present: normal lung sounds bilaterally. Absent: respiratory distress, wheezes, rales, rhonchi, stridor Cardiovascular Exam: Present: regular rate, normal rhythm, normal heart sounds. Absent: systolic murmur, diastolic murmur, rubs, gallop, clicks GI/Abdominal exam: Present: soft, tenderness (tenderness in suprapubic area and RLQ), normal bowel sounds. Absent: distended, guarding, rebound, rigid External exam: Present: normal external exam. Absent: erythema, swelling, lesions, lacerations, ecchymosis Speculum exam: Present: normal speculum exam. Absent: erythema, vaginal discharge, cervical discharge, vaginal bleeding, foreign body, tissue, laceration By manual exam: Present: adnexal tenderness (minimal R), uterine tenderness (moderate tenderness). Absent: normal by manual exam, cervical motion tenderness, adnexal mass, uterine enlargement Neurological exam: Present: alert Psychiatric exam: Present: normal affect, normal mood Course Vital Signs 04/07/19 11:20 Temperature 98.3 F Pulse Rate 86 Respiratory 18 Rate Blood Pressure 147/70 O2 Sat by Pulse 100 Oximetry Medical Decision Making - Medical Decision Making 28-year-old with history of ectopic presents for chief complaint of right lower quadrant pain. Patient is about 5 weeks with a last menstrual period of 02/23/2019. States his pain started 2 days ago. States it is in the suprapubic and right lower quadrant area. On exam patient does have minimal right lower quadrant pelvic tenderness. On pelvic exam she does have uterine tenderness CBC CMP unremarkable. Urine negative. Trichomoniasis is negative as well, gonorrhea chlamydia pending. HCG Quant is 19,000. Ultrasound shows a single live interim gestation with a heart rate of 108. Patient was offered Tylenol for pain which she refused. At this time patient can follow up outpatient with her [facility]. However discussed returning here if she has any wo rsening symptoms or develops fevers. She does agree to this. - Lab Data Result diagrams: 04/07/19 12:05 04/07/19 12:05 Lab Results 04/07/19 04/07/19 04/07/19 Range/Units 12:05 12:05 12:05 WBC 6.3 (3.8-10.6) k/uL RBC 4.07 (3.80-5.40) m/uL Hgb 12.7 (11.4-16.0) gm/dL Hct 37.2 (34.0-46.0) % MCV 91.4 (80.0-100.0) fL MCH 31.3 (25.0-35.0) pg MCHC 34.3 (31.0-37.0) g/dL RDW 14.8 (11.5-15.5) % Plt Count 271 (150-450) k/uL Neutrophils % 69 % Lymphocytes % 22 % Monocytes % 6 % Eosinophils % 2 % Basophils % 1 % Neutrophils # 4.3 (1.3-7.7) k/uL Lymphocytes # 1.4 (1.0-4.8) k/uL Monocytes # 0.4 (0-1.0) k/uL Eosinophils # 0.1 (0-0.7) k/uL Basophils # 0.0 (0-0.2) k/uL Sodium 138 (137-145) mmol/L Potassium 4.4 (3.5-5.1) mmol/L Chloride 106 (98-107) mmol/L Carbon Dioxide 24 (22-30) mmol/L Anion Gap 8 mmol/L BUN 8 (7-17) mg/dL Creatinine 0.61 (0.52-1.04) mg/dL Est GFR (CKD-EPI)AfAm >90 (>60 ml/min/1.73 sqM) Est GFR (CKD-EPI)NonAf >90 (>60 ml/min/1.73 sqM) Glucose 89 (74-99) mg/dL Calcium 9.1 (8.4-10.2) mg/dL Total Bilirubin 0.5 (0.2-1.3) mg/dL AST 17 (14-36) U/L ALT 23 (9-52) U/L Alkaline Phosphatase 34 L (38-126) U/L Total Protein 6.8 (6.3-8.2) g/dL Albumin 3.9 (3.5-5.0) g/dL Amylase 52 (30-110) U/L Lipase 58 (23-300) U/L HCG, Quant 85667.0 mIU/mL Urine Color Light Yellow Urine Appearance Clear (Clear) Urine pH 7.5 (5.0-8.0) Ur Specific [place] 1.004 (1.001-1.035) Urine Protein Negative (Negative) Urine Glucose (UA) Negative (Negative) Urine Ketones Negative (Negative) Urine Blood Negative (Negative) Urine Nitrite Negative (Negative) Urine Bilirubin Negative (Negative) Urine Urobilinogen <2.0 (<2.0) mg/dL Ur Leukocyte Esterase Negative (Negative) Trichomonas Ag (Rapid) (Negative) 04/07/19 Range/Units 12:20 WBC (3.8-10.6) k/uL RBC (3.80-5.40) m/uL Hgb (11.4-16.0) gm/dL Hct (34.0-46.0) % MCV (80.0-100.0) fL MCH (25.0-35.0) pg MCHC (31.0-37.0) g/dL RDW (11.5-15.5) % Plt Count (150-450) k/uL Neutrophils % % Lymphocytes % % Monocytes % % Eosinophils % % Basophils % % Neutrophils # (1.3-7.7) k/uL Lymphocytes # (1.0-4.8) k/uL Monocytes # (0-1.0) k/uL Eosinophils # (0-0.7) k/uL Basophils # (0-0.2) k/uL Sodium (137-145) mmol/L Potassium (3.5-5.1) mmol/L Chloride (98-107) mmol/L Carbon Dioxide (22-30) mmol/L Anion Gap mmol/L BUN (7-17) mg/dL Creatinine (0.52-1.04) mg/dL Est GFR (CKD-EPI)AfAm (>60 ml/min/1.73 sqM) Est GFR (CKD-EPI)NonAf (>60 ml/min/1.73 sqM) Glucose (74-99) mg/dL Calcium (8.4-10.2) mg/dL Total Bilirubin (0.2-1.3) mg/dL AST (14-36) U/L ALT (9-52) U/L Alkaline Phosphatase (38-126) U/L Total Protein (6.3-8.2) g/dL Albumin (3.5-5.0) g/dL Amylase (30-110) U/L Lipase (23-300) U/L HCG, Quant mIU/mL Urine Color Urine Appearance (Clear) Urine pH (5.0-8.0) Ur Specific [place] (1.001-1.035) Urine Protein (Negative) Urine Glucose (UA) (Negative) Urine Ketones (Negative) Urine Blood (Negative) Urine Nitrite (Negative) Urine Bilirubin (Negative) Urine Urobilinogen (<2.0) mg/dL Ur Leukocyte Esterase (Negative) Trichomonas Ag (Rapid) Negative (Negative) Disposition Clinical Impression: Pelvic pain during Disposition: HOME SELF-CARE Condition: Good Instructions (If sedation given, give patient instructions): Abdominal Pain in (ED) Additional Instructions: Please follow-up with your [facility] in 1-2 days. If you have any worsening symptoms return here to the emergency department. Is patient prescribed a controlled substance at d/c from ED?: No Referrals: Irlanda Galicia MD [Primary Care Provider] - 1-2 days Time of Disposition: 14:11
[2019-04-07 12:29] LABS: Basophils % (A) 1 %; Eosinophils # (A) 0.1 k/uL (0-0.7); Eosinophils % (A) 2 %; HCT 37.2 % (34.0-46.0); HGB 12.7 gm/dL (11.4-16.0); Lymphocytes # (A) 1.4 k/uL (1.0-4.8); Lymphocytes % (A) 22 %; MCH 31.3 pg (25.0-35.0); MCHC 34.3 g/dL (31.0-37.0); MCV 91.4 fL (80.0-100.0); Mean Platelet Volume 7.8; Monocytes # (A) 0.4 k/uL (0-1.0); Monocytes % (A) 6 %; Neutrophils # (A) 4.3 k/uL (1.3-7.7); Neutrophils % (A) 69 %; Platelet Count 271 k/uL (150-450); RBC 4.07 m/uL (3.80-5.40); RDW 14.8 % (11.5-15.5); WBC 6.3 k/uL (3.8-10.6)
[2019-04-07 13:08] LABS: ALT 23 U/L (9-52); AST 17 U/L (14-36); African American GFR (CKD) >90 (>60 ml/min/1.73 sqM); Albumin 3.9 g/dL (3.5-5.0); Alkaline Phosphatase 34 U/L (38-126); Amylase 52 U/L (30-110); Anion Gap 8 mmol/L; Blood Urea Nitrogen 8 mg/dL (7-17); Calcium 9.1 mg/dL (8.4-10.2); Carbon Dioxide 24 mmol/L (22-30); Chloride 106 mmol/L (98-107); Glucose 89 mg/dL (74-99); Potassium 4.4 mmol/L (3.5-5.1); Sodium 138 mmol/L (137-145); Total Bilirubin 0.5 mg/dL (0.2-1.3); Total Protein 6.8 g/dL (6.3-8.2)
--- NOTE | 2019-04-07 13:34 | US ---
EXAMINATION TYPE: Transabdominal DATE OF EXAM: 04/07/2019 1:11 PM COMPARISON: NONE CLINICAL HISTORY: RLQ pain, h/o ectopic. Right pelvic pain, 7, para 3, miscarriage 2, ectopic 1 EXAM PERFORMED: Transvaginal (TV) and Transabdominal (TA) EXAM MEASUREMENTS: GESTATIONAL AGE / DATING Physician Established: Not established yet Dates by LMP: (6 weeks/1 days) EDC: 11/30/2019 Dates by First Scan: This is 1st scan Dates by Current Scan for: ( 6 weeks/0 days) EDC: 12/01/2019 MATERNAL ANATOMY Uterus: 10.8 x 3.9 x 5.7cm, anteverted Right Ovary: 3.6 x 2.3 x 2.7cm Left Ovary: 3.3 x 1.7 x 1.9cm Post CDS / Adnexa: small amount of free fluid in left adnexa Presence of free fluid: yes Presence of corpus luteal cyst: right ovary: 1.7 x 1.6 x 1.8cm Presence of subchorionic bleed: no GESTATION / SURVEY CRL: 0.5cm (6 weeks/1 days) MSD: 1.5cm (5 weeks/5 days) Yolk Sac (normal less than 6mm): 3.4mm Heart Rate: 108 bpm Rhythm: Normal IUP: Viable IUP Date of LMP: 02/23/2019 Beta HcG (if available): Not available at time of exam Viable single IUP measuring 6 weeks 0 days with a heart rate of 108bpm and and estimated delivery caty e of 12/01/2019. Single live intrauterine gestation is confirmed as gestational sac, yolk sac, and pole are pres ent. Tiny amount of free fluid is seen in the left pelvis. Both ovaries are seen. No suspicious extra ovarian adnexal masses are present. Right ovary shows 1.7 cm isoechoic peripheral hypervascular lesion felt to reflect corpus luteal cyst. IMPRESSION: Single live interim gestation is confirmed, mean crown-rump length is 0.5 cm correspondin g to 6 week 1 day old fetus.
[2019-04-07 14:25] VITALS: BP 112/71; PULSE 60; RESP 16; TEMP 98.1
[2019-04-08 14:17] LABS: C. trachomatis,PCR Negative (Neg,Equiv); Chlamydia trachomatis Source Vagina; N. gonorrhoeae,PCR Negative (Neg,Equiv); Neisseria Source Vagina
== END 2019-04-07 14:22 | disposition home or self-care (01) ==
LOC: EC 11:08
DX: O99.89 Other specified diseases and conditions complicating pregnancy, childbirth and the puerperium (principal); R10.2 Pelvic and perineal pain; O99.331 Smoking (tobacco) complicating pregnancy, first trimester; F17.200 Nicotine dependence, unspecified, uncomplicated; Z88.8 Allergy status to other drugs, medicaments and biological substances; Z91.030 Bee allergy status; Z87.59 Personal history of other complications of pregnancy, childbirth and the puerperium; Z3A.01 Less than 8 weeks gestation of pregnancy
CPT/HCPCS: 36415; 76801; 76817; 80053; 81003; 82150; 83690; 84702; 85025; 86900; 86901; 87491; 87591; 87808; 96360; 99284

== ENCOUNTER 2019-05-23 09:35 | Emergency (ER) | payer OTHER ==
[2019-05-23 09:40] VITALS: TEMP 98.1
[2019-05-23] MEDS ORDERED: ACETAMINOPHEN TAB 500 MG TAB PO STA (10:10)
--- NOTE | 2019-05-23 10:14 | ED ---
General Adult HPI - General Chief complaint: OB/Uterine Contractions Stated complaint: Cramping & bleeding Time Seen by Provider: 05/23/19 09:44 Source: patient, RN notes reviewed Mode of arrival: ambulatory Limitations: no limitations - History of Present Illness Initial comments: 28-year-old female presents emergency Department chief complaint of lower abdominal, pelvic pain. Patient states that she has some increased white discharge yesterday but states that she woke up with cramping which is severe in nature. She has not taken any Tylenol for the pain. Patient is a [address] Camargo at 12 weeks and 3 days . Patient states that she has no vaginal bleeding at this time. Patient denies any dysuria hematuria patient states pain is unbearable but again she has not taken any Tylenol. Patient denies any nausea vomiting - Related Data Home Medications Medication Instructions Recorded Confirmed No Known Home Medications 04/07/19 04/07/19 Allergies Allergy/AdvReac Type Severity Reaction Status Date / Time phenazopyridine Allergy Rash/Hives Verified 04/07/19 11:28 [From Pyridium] venom-honey bee Allergy Swelling Verified 04/07/19 11:28 Review of Systems ROS Statement: Those systems with pertinent positive or pertinent negative responses have been documented in the HPI. ROS Other: All systems not noted in ROS Statement are negative. 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 OB history: She has had 2 SAB, 1 ectopic and 2 vaginal deliveries. This is her sixth and she has had care with me since 10 weeks. A+, abs neg, Rub Imm, HIV NR, Treponemal ab neg, Hep B neg. GBS neg. History of Any Multi-Drug Resistant Organisms: None Reported Additional Past Surgical History / Comment(s): D&C, EXPLORATORY LAP Past Anesthesia/Blood Transfusion Reactions: No Reported Reaction Past Psychological History: Anxiety, Depression, PTSD Smoking Status: Current every day smoker Past Alcohol Use History: Rare Past Drug Use History: Marijuana - Past Family History Sister(s) Family Medical History: Asthma Additional Family Medical History / Comment(s): aunt- thyroid disease Mother History Unknown: Yes Family Medical History: No Reported History Father History Unknown: Yes Family Medical History: No Reported History General Exam Limitations: no limitations General appearance: alert, in no apparent distress, anxious Head exam: Present: atraumatic, normocephalic, normal inspection Neck exam: Present: normal inspection. Absent: tenderness, meningismus, lymphadenopathy Respiratory exam: Present: normal lung sounds bilaterally. Absent: respiratory distress, wheezes, rales, rhonchi, stridor Cardiovascular Exam: Present: normal rhythm, tachycardia, normal heart sounds. Absent: systolic murmur, diastolic murmur, rubs, gallop, clicks GI/Abdominal exam: Present: soft, tenderness (Suprapubic), normal bowel sounds. Absent: distended, guarding, rebound, rigid Back exam: Absent: CVA tenderness (R), CVA tenderness (L) Skin exam: Present: warm, dry, intact, normal color. Absent: rash Course Vital Signs 05/23/19 09:38 Temperature 98.1 F Pulse Rate 127 H Respiratory 20 Rate Blood Pressure 147/91 O2 Sat by Pulse 98 Oximetry Medical Decision Making - Medical Decision Making Ultrasound was unremarkable for evidence of demise, heart rate within normal limits, no active bleeding. Patient is having moderate cramping though there is no concerns for related symptoms. Patient urinalysis unremarkable. Patient we discharged return parameters discussed. - Lab Data Lab Results 05/23/19 Range/Units 10:00 Urine Color Light Yellow Urine Appearance Clear (Clear) Urine pH 7.5 (5.0-8.0) Ur Specific [place] 1.005 (1.001-1.035) Urine Protein Negative (Negative) Urine Glucose (UA) Negative (Negative) Urine Ketones Negative (Negative) Urine Blood Small H (Negative) Urine Nitrite Negative (Negative) Urine Bilirubin Negative (Negative) Urine Urobilinogen <2.0 (<2.0) mg/dL Ur Leukocyte Esterase Negative (Negative) Urine RBC 2 (0-5) /hpf Urine WBC 2 (0-5) /hpf Ur Squamous Epith Cells 3 (0-4) /hpf Urine Bacteria Occasional H (None) /hpf Disposition Clinical Impression: Abdominal pain in Disposition: HOME SELF-CARE Condition: Stable Instructions (If sedation given, give patient instructions): Abdominal Pain in (ED) Additional Instructions: Please return to the Emergency Department if symptoms worsen or any other concerns. Is patient prescribed a controlled substance at d/c from ED?: No Referrals: Irlanda Galicia MD [Primary Care Provider] - 1-2 days Ashley Camargo DO [Doctor of Osteopathic Medicine] - 1-2 days Time of Disposition: 11:13
[2019-05-23 10:16] LABS: Appearance,Urine Clear (Clear); Bacteria,Urine Occasional /hpf; Bilirubin,Urine Negative (Negative); Blood,Urine Small (Negative); Color,Urine Light Yellow; Glucose,Urine (UA) Negative (Negative); Ketones,Urine Negative (Negative); Leukocyte Esterase,Urine Negative (Negative); Nitrite,Urine Negative (Negative); PH, Urine 7.5 (5.0-8.0); Protein,Urine Negative (Negative); RBC,Urine 2 /hpf (0-5); Specific Gravity,Urine 1.005 (1.001-1.035); Squamous Epithelial Cell,Urine 3 /hpf (0-4); Urobilinogen,Urine <2.0 mg/dL (<2.0)
--- NOTE | 2019-05-23 10:56 | US ---
EXAMINATION TYPE: Transabdominal DATE OF EXAM: 05/23/2019 10:34 AM COMPARISON: US 04/07/2019 CLINICAL HISTORY: pain, bleeding. EXAM PERFORMED: Transabdominal (TA) EXAM MEASUREMENTS: GESTATIONAL AGE / DATING Physician Established: (12 weeks/5 days) EDC: 11/30/2019 Dates by LMP: 02/23/2019 (12 weeks/5 days) EDC: 11/30/2019 Dates by First Scan: (12 weeks/4 days) EDC: 12/01/2019 Dates by Current Scan for: (13 weeks/1 days) EDC: 11/27/2019 MATERNAL ANATOMY Uterus: 15.0 x 8.3 x 11.1 cm Right Ovary: 2.4 x 1.4 x 2.7 cm Left Ovary: 3.0 x 1.6 x 2.7 cm Post CDS / Adnexa: wnl Presence of free fluid: no free fluid GESTATION / SURVEY CRL: 6.9 cm (13 weeks/1 days) Yolk Sac (normal less than 6mm): not seen Heart Rate: 159 bpm Rhythm: Normal IUP: Viable IUP Date of LMP: 02/23/2019 Beta HcG (if available): not available Viable IUP that correlates with LMP. IMPRESSION: VIABLE INTRAUTERINE GESTATION WITH A GESTATIONAL AGE OF 13 WEEKS 1 DAY +/- 7 DAYS. ESTIMATED DATE OF CONFINEMENT BASED ON THIS EXAMINATION IS 11/27/2019. THIS FETUS HAS SHOWN SATISFACTORY GROWTH SINCE THE PREVIOUS STUDY. MTDD
[2019-05-23 11:59] VITALS: BP 127/78; PULSE 88; RESP 16
== END 2019-05-23 11:58 | disposition home or self-care (01) ==
LOC: EC 09:35
DX: O99.89 Other specified diseases and conditions complicating pregnancy, childbirth and the puerperium (principal); R10.2 Pelvic and perineal pain; R00.0 Tachycardia, unspecified; O99.331 Smoking (tobacco) complicating pregnancy, first trimester; F17.200 Nicotine dependence, unspecified, uncomplicated; Z88.8 Allergy status to other drugs, medicaments and biological substances; Z91.030 Bee allergy status; Z87.19 Personal history of other diseases of the digestive system; Z98.890 Other specified postprocedural states; Z3A.13 13 weeks gestation of pregnancy
CPT/HCPCS: 76801; 76817; 81001; 99284

== ENCOUNTER 2019-07-11 07:31 | Emergency (ER) | payer OTHER ==
--- NOTE | 2019-07-11 08:02 | ED ---
General Adult HPI - General Chief complaint: Extremity Problem,Nontraumatic Stated complaint: Hip pain Time Seen by Provider: 07/11/19 07:38 Source: patient, RN notes reviewed Mode of arrival: ambulatory Limitations: no limitations - History of Present Illness Initial comments: Patient is a pleasant 20-year-old female presenting to the emergency Department with complaints of discomfort of her lower abdomen/pelvic region. Onset of symptoms was around a week ago. Patient has spoke with her OB since then however did not mention this to her. Discomfort is positional. Patient also has some mild discomfort of her right lower back. No fevers. No nausea vomiting. No change in appetite. No diarrhea or loose stools. Patient also has some discomfort of her right anterior hip region. Patient states she does have a low-lying placenta based on previous ultrasound. No pelvic pain or vaginal bleeding. Patient is 19 weeks . Patient is 6 para 3 - Related Data Home Medications Medication Instructions Recorded Confirmed Acetaminophen Tab [Tylenol Tab] 500 mg PO Q6HR PRN 07/11/19 07/11/19 Albuterol Inhaler [Ventolin Hfa 1 - 2 puff INHALATION RT-Q6H PRN 07/11/19 07/11/19 Inhaler] Albuterol Nebulized [Ventolin 2.5 mg INHALATION RT-Q4H PRN 07/11/19 07/11/19 Nebulized] Fluticasone Nasal [place] [Flonase 1 spr EA NOSTRIL DAILY 07/11/19 07/11/19 Nasal [place]] Pedi Multivit No.25/Folic Acid 600 mcg PO DAILY 07/11/19 07/11/19 [Flintstones Multivit Chew Tab] Allergies Allergy/AdvReac Type Severity Reaction Status Date / Time phenazopyridine Allergy Rash/Hives Verified 07/11/19 08:35 [From Pyridium] venom-honey bee Allergy Swelling Verified 07/11/19 08:35 Review of Systems ROS Statement: Those systems with pertinent positive or pertinent negative responses have been documented in the HPI. ROS Other: All systems not noted in ROS Statement are negative. 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 OB history: She has had 2 SAB, 1 ectopic and 2 vaginal deliveries. This is her sixth and she has had care with me since 10 weeks. A+, abs neg, Rub Imm, HIV NR, Treponemal ab neg, Hep B neg. GBS neg. History of Any Multi-Drug Resistant Organisms: None Reported Additional Past Surgical History / Comment(s): D&C, EXPLORATORY LAP Past Anesthesia/Blood Transfusion Reactions: No Reported Reaction Past Psychological History: Anxiety, Depression, PTSD Smoking Status: Current every day smoker Past Alcohol Use History: Rare Past Drug Use History: Marijuana - Past Family History Sister(s) Family Medical History: Asthma Additional Family Medical History / Comment(s): aunt- thyroid disease Mother History Unknown: Yes Family Medical History: No Reported History Father History Unknown: Yes Family Medical History: No Reported History General Exam Limitations: no limitations General appearance: alert, in no apparent distress Head exam: Present: normocephalic Eye exam: Present: normal appearance, PERRL ENT exam: Present: normal oropharynx Neck exam: Present: normal inspection Respiratory exam: Present: normal lung sounds bilaterally Cardiovascular Exam: Present: regular rate, normal rhythm GI/Abdominal exam: Present: soft, distended (Minimally distended lower abdomen consistent with 19 weeks gravid state.), tenderness (Mild tenderness right lower abdomen pelvis), normal bowel sounds. Absent: guarding, rebound, rigid, pulsatile mass Extremities exam: Present: tenderness (Minimal tenderness right anterior upper thigh) Back exam: Present: tenderness (Mild tenderness right lower paralumbar) Neurological exam: Present: alert Psychiatric exam: Present: normal affect, normal mood Skin exam: Present: normal color Course Vital Signs 07/11/19 07:34 Temperature 98.1 F Pulse Rate 103 H Respiratory 18 Rate Blood Pressure 121/53 O2 Sat by Pulse 100 Oximetry Medical Decision Making - Medical Decision Making Patient reevaluated and resting comfortably in bed. Patient updated on results and need for close follow-up. - Lab Data Lab Results 07/11/19 Range/Units 08:08 Urine Color Light Yellow Urine Appearance Clear (Clear) Urine pH 7.0 (5.0-8.0) Ur Specific [place] 1.008 (1.001-1.035) Urine Protein Negative (Negative) Urine Glucose (UA) Negative (Negative) Urine Ketones Negative (Negative) Urine Blood Negative (Negative) Urine Nitrite Negative (Negative) Urine Bilirubin Negative (Negative) Urine Urobilinogen <2.0 (<2.0) mg/dL Ur Leukocyte Esterase Negative (Negative) - Radiology Data Radiology results: report reviewed (Pelvic ultrasound shows IUP at 19 weeks 3 days. 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 Return for fever, increased pain, worsening or changing symptoms or other concerns. Is patient prescribed a controlled substance at d/c from ED?: No Referrals: Irlanda Galicia MD [Primary Care Provider] - 1-2 days Ashley Camargo DO [Doctor of Osteopathic Medicine] - 1-2 days Time of Disposition: 09:28
[2019-07-11 08:32] LABS: Appearance,Urine Clear (Clear); Bilirubin,Urine Negative (Negative); Blood,Urine Negative (Negative); Color,Urine Light Yellow; Glucose,Urine (UA) Negative (Negative); Ketones,Urine Negative (Negative); Leukocyte Esterase,Urine Negative (Negative); Nitrite,Urine Negative (Negative); Protein,Urine Negative (Negative); Specific Gravity,Urine 1.008 (1.001-1.035); Urobilinogen,Urine <2.0 mg/dL (<2.0)
--- NOTE | 2019-07-11 08:48 | US ---
EXAMINATION TYPE: US OB >= 14 wk fetus DATE OF EXAM: 07/11/2019 COMPARISON: None CLINICAL HISTORY: pain TECHNIQUE: Transabdominal (TA) GESTATIONAL AGE / DATING Physician Established: (19 weeks/5 days) EDC: 11/30/19 Dates by LMP: (19 weeks/5 days) EDC: 11/30/19 Dates by First Scan: (19 weeks/4 days) EDC: 12/01/19 Dates by Current Scan: (19 weeks/3 days) EDC: 12/02/19 SURVEY IUP: Single PLACENTA: Posterior PREVIA: Low Lying SUKHWINDER: 12.0 cm CERVICAL LENGTH (transabdominal: norm > 3.0cm): 3.1 cm BIOMETRY PRESENTATION: Breech BPD: 4.5 cm 19 weeks / 4 days HC: 17.0 cm 19 weeks / 4 days AC: 14.4 cm 19 weeks / 5 days FL: 3.2 cm 19 weeks / 5 days ESTIMATED WEIGHT IN GRAMS: 308 grams ESTIMATED WEIGHT IN LBS/OZ: 0 lbs. 11 oz. WEIGHT PERCENTAGE BASED ON ESTABLISHED DATES: 45% HC/AC: 1.2 FL/AC: 21.9 HEART RATE: 136 bpm RHYTHM: Normal IMPRESSION: ANGEL FETUS PRESENT IN A BREECH PRESENTATION WITH A GESTATIONAL AGE OF 19 WEEKS 3 DAYS +/- 10 DAY S. ESTIMATED DATE CONFINEMENT BASED ON THIS EXAMINATION IS 12/02/2019.
[2019-07-11] MEDS ORDERED: ACETAMINOPHEN TAB 500 MG TAB PO STA (09:25)
[2019-07-11 09:37] VITALS: BP 121/74; PULSE 78; RESP 16; TEMP 97.5
== END 2019-07-11 09:36 | disposition home or self-care (01) ==
LOC: EC 07:31
DX: O26.892 Other specified pregnancy related conditions, second trimester (principal); O99.332 Smoking (tobacco) complicating pregnancy, second trimester; F17.200 Nicotine dependence, unspecified, uncomplicated; Z88.8 Allergy status to other drugs, medicaments and biological substances; Z91.030 Bee allergy status; Z98.890 Other specified postprocedural states; Z3A.19 19 weeks gestation of pregnancy
CPT/HCPCS: 76805; 81003; 99284

== ENCOUNTER 2019-08-13 08:17 | Outpatient (CLI) | payer OTHER ==
[2019-08-13 09:08] VITALS: BP 126/77; PULSE 91; RESP 16; TEMP 98.1
[2019-08-13 09:42] LABS: Appearance,Urine Clear (Clear); Bilirubin,Urine Negative (Negative); Blood,Urine Negative (Negative); Color,Urine Light Yellow; Glucose,Urine (UA) Negative (Negative); Ketones,Urine Negative (Negative); Leukocyte Esterase,Urine Negative (Negative); Nitrite,Urine Negative (Negative); PH, Urine 6.5 (5.0-8.0); Protein,Urine Negative (Negative); Specific Gravity,Urine 1.006 (1.001-1.035); Urobilinogen,Urine <2.0 mg/dL (<2.0)
[2019-08-13 10:51] LABS: Amphetamine Screen,Urine Not Detected (NotDetected); Barbiturate Screen,Urine Not Detected (NotDetected); Benzodiazepines Screen,Urine Not Detected (NotDetected); Cocaine Screen,Urine Not Detected (NotDetected); Methadone Screen, Urine Not Detected (NotDetected); Opiate Screen,Urine Not Detected (NotDetected); Oxycodone Screen, Urine Not Detected (NotDetected); Phencyclidine Screen,Urine Not Detected (NotDetected); Tricyclic Antidepressant,Urine Not Detected (NotDetected); Urn Cannabinoid Scrn Detected (NotDetected)
--- NOTE | 2019-08-25 13:28 | P.MSEPDOC ---
Presenting Problems - Arrival Data Date of Arrival on Unit: 08/13/19 Time of Arrival on Unit: 08:17 Mode of Transport: Wheelchair - Complaint OB-Reason for Admission/Chief Complaint: Other Comment: cramping since 0 last night Medical History - Information : 7 Para: 3 Term: 3 : 0 Abortions: Spontaneous or Elective: 2 Number of Living Children: 3 - Gestational Age Gestational Age by COREY (wks/days): 24 Weeks and 3 Days - History Complications: Smoker Review of Systems - Review of Systems Constitutional: No problems Breast: No problems ENT: No problems Cardiovascular: No problems Respiratory: No problems Gastrointestinal: No problems Genitourinary: No problems Musculoskeletal: No problems Neurological: No problems Skin: No problems Vital Signs - Temperature Temperature: 98.1 F Temperature Source: Oral - Pulse Right Brachial Pulse Rate: 91 Pulse Assessment Method: Automatic Cuff - Respirations Respiratory Rate: 16 Oxygen Delivery Method: Room Air O2 Sat by Pulse Oximetry: 92 - Blood Pressure Right Arm Blood Pressure: 126/77 Blood Pressure Mean: 93 Blood Pressure Source: Automatic Cuff Medical Screen Scoring (Pre) - Uterine Contractions Frequency: > 5 minutes apart = 1 Duration: N/A Intensity: N/A - Maternal Vital Signs Maternal Temperature: N/A Signs of Preeclampsia: N/A Maternal Respirations: N/A - Maternal Trauma Maternal Trauma: N/A - Assessment - Baby A Baseline FHR: 135 Heart Rate - NICHD Category: Category I (Normal) = 0 Position: N/A Station: N/A - Total Score - Baby A Total Score - Baby A: 1 - Total Score - Baby B Total Score - Baby B: 1 - Total Score - Baby C Total Score - Baby C: 1 - Level of Risk - Baby A Level of Risk - Baby A: Low (0-5) - Level of Risk - Baby B Level of Risk - Baby B: Low (0-5) - Level of Risk - Baby C Level of Risk - Baby C: Low (0-5) Physician Notification (Pre) - Physician Notified Physician Notified Date: 08/13/19 Physician Notified Time: 08:55 New Order Received: Yes - Notification Comment Comment: FFN, UA, UA drug screen. Physician Notification (Post) - Physician Notified Physician Notified Date: 08/13/19 Physician Notified Time: 11:05 Physician/Practitioner Notified:: Katia Spoke With: Katia New Order Received: Yes (pt may be discharged home) Disposition - Disposition OB Disposition: Discharge to home Discharge Date: 08/13/19 Discharge Time: 11:17 I agree with the RN Medical Screening Exam: Yes Risk & Benefit of care provided described in d/c instruction: Yes Diagnosis: RELATED CONDITIONS, UNSPECIFIED, SECOND TRIMESTER
== END 2019-08-13 11:10 | disposition home or self-care (01) ==
LOC: FBPOP 08:17
PROVIDERS: ATTEND Obstetrics & Gynecology
DX: O26.92 Pregnancy related conditions, unspecified, second trimester (principal); O99.332 Smoking (tobacco) complicating pregnancy, second trimester; Z3A.24 24 weeks gestation of pregnancy
CPT/HCPCS: 59025; 82731; 81003; 80306; G0463; 99213

== ENCOUNTER 2019-11-05 10:49 | Outpatient (CLI) | payer OTHER ==
[2019-11-05 14:59] VITALS: BP 134/84; PULSE 73; RESP 16; TEMP 97.2
--- NOTE | 2019-11-05 15:42 | P.MSEPDOC ---
Presenting Problems - Arrival Data Date of Arrival on Unit: 11/05/19 Time of Arrival on Unit: 10:55 Mode of Transport: Wheelchair - Complaint OB-Reason for Admission/Chief Complaint: Possible Onset of Labor, Rule Out SROM Comment: 36 weeks Medical History - Information : 7 Para: 3 Term: 3 : 0 Abortions: Spontaneous or Elective: 3 Number of Living Children: 3 - Gestational Age Gestational Age by COREY (wks/days): 36 Weeks and 3 Days Review of Systems - Review of Systems Constitutional: No problems Breast: No problems ENT: No problems Cardiovascular: No problems Respiratory: No problems Gastrointestinal: Diarrhea Genitourinary: No problems Musculoskeletal: No problems Neurological: No problems Skin: No problems Comment: diarrhea since contx started this am Vital Signs - Temperature Temperature: 97.2 F Temperature Source: Temporal Artery Scan - Pulse Right Radial Pulse Rate: 73 Pulse Assessment Method: Automatic Cuff - Respirations Respiratory Rate: 16 Oxygen Delivery Method: Room Air - Blood Pressure Right Arm Blood Pressure: 134/84 Blood Pressure Mean: 100 Blood Pressure Source: Automatic Cuff Medical Screen Scoring (Pre) - Cervical Exam Dilation: 1-3 cm = 1 Membranes: Intact - Uterine Contractions Frequency: > or = 36 weeks =2 - Maternal Vital Signs Maternal Temperature: N/A Maternal Blood Pressure: N/A Signs of Preeclampsia: N/A Maternal Respirations: N/A - Maternal Trauma Maternal Trauma: N/A - Assessment - Baby A Baseline FHR: 130 Heart Rate - NICHD Category: Category I (Normal) = 0 NST: Reactive Position: N/A Station: N/A - Total Score - Baby A Total Score - Baby A: 3 - Total Score - Baby B Total Score - Baby B: 3 - Total Score - Baby C Total Score - Baby C: 3 - Level of Risk - Baby A Level of Risk - Baby A: Low (0-5) - Level of Risk - Baby B Level of Risk - Baby B: Low (0-5) - Level of Risk - Baby C Level of Risk - Baby C: Low (0-5) Physician Notification (Pre) - Physician Notified Physician Notified Date: 11/05/19 Physician Notified Time: 12:35 New Order Received: Yes (home with instructions if no change in cervix after 1 hour) Disposition - Disposition OB Disposition: Physician follow up in office, Discharge to home, Written follow up instructions reviewed Discharge Date: 11/05/19 Discharge Time: 12:45 I agree with the RN Medical Screening Exam: Yes Risk & Benefit of care provided described in d/c instruction: Yes Diagnosis: FALSE LABOR AT OR AFTER 37 COMPLETED WEEKS OF GESTATION
== END 2019-11-05 12:45 | disposition home or self-care (01) ==
LOC: FBPOP 10:49
PROVIDERS: ATTEND Obstetrics & Gynecology
DX: O47.03 False labor before 37 completed weeks of gestation, third trimester (principal); Z3A.36 36 weeks gestation of pregnancy
CPT/HCPCS: 59025; 84112; G0463; 99213

== ENCOUNTER 2019-11-08 10:04 | Outpatient (CLI) | payer OTHER ==
[2019-11-08 10:35] LABS: Appearance,Urine Clear (Clear); Bacteria,Urine Rare /hpf; Bilirubin,Urine Negative (Negative); Blood,Urine Trace (Negative); Color,Urine Yellow; Glucose,Urine (UA) Negative (Negative); Ketones,Urine Negative (Negative); Leukocyte Esterase,Urine Negative (Negative); Mucus,Urine Rare /hpf; Nitrite,Urine Negative (Negative); Protein,Urine Negative (Negative); RBC,Urine 1 /hpf (0-5); Squamous Epithelial Cell,Urine <1 /hpf (0-4); Urobilinogen,Urine <2.0 mg/dL (<2.0); WBC,Urine 1 /hpf (0-5)
[2019-11-08 10:57] VITALS: BP 136/85; PULSE 72; RESP 18; TEMP 96.3
--- NOTE | 2019-11-10 08:27 | P.MSEPDOC ---
Presenting Problems - Arrival Data Date of Arrival on Unit: 11/08/19 Time of Arrival on Unit: 10:04 Mode of Transport: Ambulatory - Complaint OB-Reason for Admission/Chief Complaint: Decreased Movement, Pain Comment: No movement since 0 yesterday,severe suprapubic pressure Medical History - Information : 7 Para: 3 Term: 3 : 0 Abortions: Spontaneous or Elective: 3 Number of Living Children: 3 - Gestational Age Gestational Age by COREY (wks/days): 36 Weeks and 6 Days - History Complications: Smoker, Hx. Substance Abuse Comment: uses marijuana for anxiety and stress, smoked 4 days ago Review of Systems - Review of Systems Constitutional: No problems Breast: No problems ENT: No problems Cardiovascular: No problems Respiratory: No problems Gastrointestinal: No problems Genitourinary: No problems Musculoskeletal: No problems Neurological: No problems Skin: No problems Vital Signs - Temperature Temperature: 96.3 F Temperature Source: Temporal Artery Scan - Pulse Right Brachial Pulse Rate: 72 Pulse Assessment Method: Automatic Cuff - Respirations Respiratory Rate: 18 Oxygen Delivery Method: Room Air O2 Sat by Pulse Oximetry: 100 - Blood Pressure Right Arm Sitting Blood Pressure: 136/85 Blood Pressure Mean: 102 Blood Pressure Source: Automatic Cuff Medical Screen Scoring (Pre) - Cervical Exam Dilation: 1-3 cm = 1 Membranes: Intact - Uterine Contractions Frequency: N/A - Maternal Vital Signs Maternal Temperature: N/A Maternal Blood Pressure: N/A Signs of Preeclampsia: N/A Maternal Respirations: N/A - Maternal Trauma Maternal Trauma: N/A - Assessment - Baby A Baseline FHR: 130 Heart Rate - NICHD Category: Category I (Normal) = 0 NST: Reactive Position: N/A Station: N/A - Total Score - Baby A Total Score - Baby A: 1 - Total Score - Baby B Total Score - Baby B: 1 - Total Score - Baby C Total Score - Baby C: 1 - Level of Risk - Baby A Level of Risk - Baby A: Low (0-5) - Level of Risk - Baby B Level of Risk - Baby B: Low (0-5) - Level of Risk - Baby C Level of Risk - Baby C: Low (0-5) Physician Notification (Pre) - Physician Notified Physician Notified Date: 11/08/19 Physician Notified Time: 10:43 New Order Received: Yes - Notification Comment Comment: Reactive fhts, negative UA, cervix 1cm and thick, feels movement, no contractions Disposition - Disposition OB Disposition: Triage, Discharge to home Discharge Date: 11/08/19 Discharge Time: 10:45 I agree with the RN Medical Screening Exam: Yes Risk & Benefit of care provided described in d/c instruction: Yes Diagnosis: DECREASED MOVEMENTS, THIRD TRIMESTER, FETUS 1
== END 2019-11-08 10:45 | disposition home or self-care (01) ==
LOC: FBPOP 10:04
PROVIDERS: ATTEND Obstetrics & Gynecology
DX: O36.8131 Decreased fetal movements, third trimester, fetus 1 (principal); Z3A.36 36 weeks gestation of pregnancy
CPT/HCPCS: 59025; 81001

== ENCOUNTER 2019-11-23 06:00 | Inpatient (IN) | payer OTHER ==
[2019-11-23] MEDS ORDERED: METHYLERGONOVINE 0.2 MG/ML 1 ML AMP IM PRN (06:25)
[2019-11-23] MEDS ORDERED: LIDOCAINE 0.5% (PF) 5 MG/ML (50 ML SDV) SQ PRN (06:25)
[2019-11-23] MEDS ORDERED: OXYTOCIN 10 UNIT/ML 1 ML VIAL IM PRN (06:25)
[2019-11-23] MEDS ORDERED: CARBOPROST TROMETHAMINE 250 MCG/ML 1 ML AMP IM PRN (06:25)
[2019-11-23] MEDS ORDERED: TERBUTALINE 1 MG/ML VIAL SQ PRN (06:25)
[2019-11-23] MEDS ORDERED: LACTATED RINGERS 1,000 ML IV SCH (06:30)
[2019-11-23] MEDS ORDERED: OXYTOCIN 30 UNITS/500 ML NS 30 UNIT in SALINE 1 500ML.BAG IV SCH (06:30)
[2019-11-23 06:46] LABS: Basophils % (A) 0 %; Eosinophils # (A) 0.2 k/uL (0-0.7); Eosinophils % (A) 2 %; HCT 39.8 % (34.0-46.0); HGB 13.3 gm/dL (11.4-16.0); Lymphocytes # (A) 1.7 k/uL (1.0-4.8); Lymphocytes % (A) 19 %; MCH 31.1 pg (25.0-35.0); MCHC 33.5 g/dL (31.0-37.0); MCV 92.8 fL (80.0-100.0); Mean Platelet Volume 9.6; Monocytes # (A) 0.6 k/uL (0-1.0); Monocytes % (A) 6 %; Neutrophils # (A) 6.6 k/uL (1.3-7.7); Neutrophils % (A) 71 %; Platelet Count 249 k/uL (150-450); RBC 4.28 m/uL (3.80-5.40); RDW 13.7 % (11.5-15.5); WBC 9.2 k/uL (3.8-10.6)
--- NOTE | 2019-11-23 07:28 | P.HPOB ---
History of Present Illness H&P Date: 11/23/19 Chief Complaint: Induction of labor 29 year old presents for induction of labor. HEr cervix is 2/70/-2 and she is elizabeth irregularly. heart tones 130 with moderate variability and reactive. Review of Systems All systems: negative Constitutional: Denies chills, Denies fever Eyes: denies blurred vision, denies pain Ears, nose, mouth and throat: Denies headache, Denies sore throat Cardiovascular: Denies chest pain, Denies shortness of breath Respiratory: Denies cough Gastrointestinal: Denies abdominal pain, Denies diarrhea, Denies nausea, Denies vomiting Genitourinary: Denies dysuria, Denies hematuria Musculoskeletal: Denies myalgias Integumentary: Denies pruritus, Denies rash Neurological: Denies numbness, Denies weakness Psychiatric: Denies anxiety, Denies depression Endocrine: Denies fatigue, Denies weight change 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. OB history: She has had 2 SAB, 1 ectopic and 3 vaginal deliveries. This is her seventh History of Any Multi-Drug Resistant Organisms: None Reported Additional Past Surgical History / Comment(s): D&C, EXPLORATORY LAP Past Anesthesia/Blood Transfusion Reactions: No Reported Reaction Past Psychological History: Anxiety, Depression, PTSD Additional Psychological History / Comment(s): sees Dr. Ms. Potter through [facility] Smoking Status: Current every day smoker Past Alcohol Use History: Rare Additional Past Alcohol Use History / Comment(s): 1/2 pack per day Past Drug Use History: Marijuana Additional Drug Use History / Comment(s): medical marijuana for ptsd. - Past Family History Sister(s) Family Medical History: Asthma Additional Family Medical History / Comment(s): aunt- thyroid disease Mother History Unknown: Yes Family Medical History: No Reported History Father History Unknown: Yes Family Medical History: No Reported History Medications and Allergies Home Medications Medication Instructions Recorded Confirmed Type No Known Home Medications 11/08/19 11/23/19 History Allergies Allergy/AdvReac Type Severity Reaction Status Date / Time phenazopyridine Allergy Rash/Hives Verified 11/23/19 06:21 [From Pyridium] venom-honey bee Allergy Swelling Verified 11/23/19 06:21 Exam Osteopathic Statement: *. No significant issues noted on an osteopathic structural exam other than those noted in the History and Physical/Consult. Vital Signs Temp Pulse Resp BP Pulse Ox 11/23/19 06:20 96.3 F L 90 18 128/82 100 Intake and Output 11/22/19 11/23/19 11/23/19 22:59 06:59 14:59 Other: Weight 84.368 kg Heart: Regular rate and rhythm Lungs: Clear to auscultation bilaterally Abdomen: Soft, nontender Extremities: Negative Homans sign Results Result Diagrams: 11/23/19 06:30 Assessment and Plan (1) Normal labor Current Visit: No Status: Acute Code(s): O80 - ENCOUNTER FOR FULL-TERM UNCOMPLICATED DELIVERY; Z37.9 - OUTCOME OF DELIVERY, UNSPECIFIED SNOMED Code(s): 90940903 Plan: 1. Induction of labor with amniotomy and Pitocin 2. Anticipate normal vaginal delivery
[2019-11-23] MEDS ORDERED: BUTORPHANOL 1 MG/ML 1 ML VIAL IV PRN (08:16)
[2019-11-23] MEDS ORDERED: ROPIVACAINE 100 MG, fentaNYL (PF) 200 MCG in SODIUM CHLORIDE 0.9% 76 ML EPIDURAL ONE (09:36)
[2019-11-23] MEDS ORDERED: CITRIC ACID-SODIUM CITRATE 15 ML CUP PO ONE (15:13)
[2019-11-23] MEDS ORDERED: diphenhydrAMINE 25 MG CAP PO PRN (19:29)
[2019-11-23] MEDS ORDERED: ZOLPIDEM 5 MG TAB PO PRN (19:29)
[2019-11-23] MEDS ORDERED: IBUPROFEN 600 MG TAB PO PRN (19:29)
[2019-11-23] MEDS ORDERED: diphenhydrAMINE 50 MG/ML 1 ML VIAL IVP PRN ×2 (19:29)
[2019-11-23] MEDS ORDERED: WITCH HAZEL 1 EACH MED..PAD TOPICAL PRN (19:29)
[2019-11-23] MEDS ORDERED: diphenhydrAMINE 50 MG CAP PO PRN (19:29)
[2019-11-23] MEDS ORDERED: LANOLIN CREAM 5 GM TUBE TOPICAL PRN (19:29)
[2019-11-23] MEDS ORDERED: SIMETHICONE 80 MG CHEWABLE PO PRN (19:29)
[2019-11-23] MEDS ORDERED: BENZOCAINE/MENTHOL SPRAY 1 GM/SPRAY AEROSOL TOPICAL PRN (19:29)
[2019-11-23] MEDS ORDERED: HYDROCORTISONE 2.5% RECTAL CREAM 30 GM TUBE RECTAL PRN (19:29)
[2019-11-23] MEDS ORDERED: OXYTOCIN 20 UNITS/1000 ML NS 1,000 ML IV SCH (19:30)
[2019-11-23] MEDS: SENNOSIDES-DOCUSATE SODIUM 1 EACH TAB PO SCH (19:51)
[2019-11-23] MEDS: ACETAMINOPHEN TAB 325 MG TAB PO PRN (19:51)
[2019-11-23] MEDS: PANTOPRAZOLE 40 MG TABLET PO SCH (19:52)
[2019-11-24 06:19] LABS: Basophils % (A) 0 %; Eosinophils # (A) 0.2 k/uL (0-0.7); Eosinophils % (A) 2 %; HCT 36.2 % (34.0-46.0); HGB 12.3 gm/dL (11.4-16.0); Lymphocytes # (A) 2.2 k/uL (1.0-4.8); Lymphocytes % (A) 23 %; MCH 31.4 pg (25.0-35.0); MCV 92.3 fL (80.0-100.0); Monocytes # (A) 0.7 k/uL (0-1.0); Monocytes % (A) 7 %; Neutrophils # (A) 6.3 k/uL (1.3-7.7); Neutrophils % (A) 66 %; Platelet Count 207 k/uL (150-450); RBC 3.92 m/uL (3.80-5.40); RDW 13.8 % (11.5-15.5); WBC 9.6 k/uL (3.8-10.6)
--- NOTE | 2019-11-24 06:54 | P.PROBDLV ---
Vaginal Delivery Note - . Vaginal Delivery Note: 29 year old presents for induction of labor. HEr cervix is 2/70/-2 and she is elizabeth irregularly. heart tones 130 with moderate variability and reactive. Pitocin was started. Amniotomy performed at 6:58 AM and clear fluid noted. She was seen by uncomfortable and did get an epidural. Her cervix was completely dilated 9:42 AM. She pushed, delivered a viable female over intact perineum under epidural anesthesia at 9:49 AM. Head delivered OA, nuchal cord 1 easily reduced, anterior shoulder delivered gentle downward guidance followed by posterior shoulder and rest of body. Nose and mouth bulb suctioned, cord clamped and cut, infant placed on mother's abdomen. Apgars 9, 9, weight 5 lbs. 11 oz. Placenta delivered spontaneously, intact with three-vessel cord at 9:42 AM. Vagina, cervix, perineum inspected. No lacerations noted. Estimated blood loss 100 mL. Mother and baby in stable condition.
--- NOTE | 2019-11-24 06:56 | P.DS ---
Providers Date of admission: 11/23/19 06:11 Expected date of discharge: 11/24/19 Attending physician: Ashley Camargo Primary care physician: Stated None - Discharge Diagnosis(es) (1) Normal labor Current Visit: No Status: Resolved (2) Normal vaginal delivery Current Visit: Yes Status: Acute Hospital Course: Patient presented for induction of labor. She noted a normal vaginal delivery. Her course was uncomplicated. She'll be discharged home day #1 in stable condition to follow-up with me in 6 weeks. Plan - Discharge Summary New Discharge Prescriptions: New Pantoprazole [Protonix] 40 mg PO AC-BRKFST #30 tablet.dr Discharge Medication List Pantoprazole [Protonix] 40 mg PO AC-BRKFST #30 tablet. 11/24/19 [Rx] Follow up Appointment(s)/Referral(s): Ashley Camargo DO [Doctor of Osteopathic Medicine] - 6 Weeks Discharge Disposition: HOME SELF-CARE
[2019-11-24] MEDS: SENNOSIDES-DOCUSATE SODIUM 1 EACH TAB PO SCH (07:34)
[2019-11-24] MEDS: PANTOPRAZOLE 40 MG TABLET PO SCH (07:34)
[2019-11-24 07:37] VITALS: BP 136/82; PULSE 61; RESP 20; TEMP 98
[2019-11-24] MEDS: ACETAMINOPHEN TAB 325 MG TAB PO PRN (07:51)
== END 2019-11-24 11:30 | disposition home or self-care (01) | DRG 807 ==
LOC: 4FBP 06:11
PROVIDERS: ADMIT Obstetrics & Gynecology; ATTEND Obstetrics & Gynecology
PROC: 10E0XZZ Delivery of Products of Conception, External Approach (ICD-10-PCS; principal; 2019-11-24)
PROC: 3E0R3BZ Introduction of Anesthetic Agent into Spinal Canal, Percutaneous Approach (ICD-10-PCS; principal; 2019-11-24)
PROC: 00HU33Z Insertion of Infusion Device into Spinal Canal, Percutaneous Approach (ICD-10-PCS; principal; 2019-11-24)
PROC: 10907ZC Drainage of Amniotic Fluid, Therapeutic from Products of Conception, Via Natural or Artificial Opening (ICD-10-PCS; principal; 2019-11-24)
DX: O69.81X0 Labor and delivery complicated by cord around neck, without compression, not applicable or unspecified (principal); Z37.0 Single live birth; F43.10 Post-traumatic stress disorder, unspecified; F32.9 Major depressive disorder, single episode, unspecified; F17.200 Nicotine dependence, unspecified, uncomplicated; O99.334 Smoking (tobacco) complicating childbirth; O99.344 Other mental disorders complicating childbirth; K21.9 Gastro-esophageal reflux disease without esophagitis; Z82.5 Family history of asthma and other chronic lower respiratory diseases; Z83.49 Family history of other endocrine, nutritional and metabolic diseases; Z91.030 Bee allergy status
CPT/HCPCS: 85025; 86850; 86900; 86901

== ENCOUNTER 2021-02-14 10:18 | Emergency (ER) | payer OTHER ==
[2021-02-14] MEDS ORDERED: ACETAMINOPHEN TAB 325 MG TAB PO STA (11:08)
--- NOTE | 2021-02-14 11:08 | ED ---
Back Pain HPI - General Chief Complaint: Back Pain/Injury Stated Complaint: early , fall Source: patient, RN notes reviewed Limitations: no limitations - History of Present Illness Initial Comments: 30-year-old white female patient presents to the emergency room tearful stating that she was walking down the steps last night around 8:00 in her home and her legs gave out and fell to her knees and tumbled down 8 steps. Patient states that she was able to get up and ambulate however today she has increasing right sided abdomen and flank pain. She states that she drove herself to the doctor's office for blood work today and was told that she should come in and be seen in the emergency room. She states that she was at [facility] yesterday for some right sided abdominal pain and was told that she was between 2.5 weeks. She denies any vaginal leading states was diagnosed with a urinary tract infection and is on Macrobid. Patient is ambulatory in the room states that her "fat" on the right side is tender to touch. She has no bruising or abrasions. Denies any incontinence of bowel or bladder. MD Complaint: fall -: hour(s) (15) Radiation: abdomen, flank (right side) Severity scale (1-10): 9 Quality: sharp, aching Consistency: constant Improves With: other (Standing) Worsens With: movement Associated Symptoms: difficulty walking - Related Data Previous Rx's Medication Instructions Recorded Pantoprazole [Protonix] 40 mg PO AC-BRKFST #30 tablet. 11/24/19 Acetaminophen [Tylenol] 500 mg PO Q4-6H PRN #30 tab 02/14/21 diphenhydrAMINE [Benadryl] 25 mg PO QID PRN #20 capsule 02/14/21 Allergies Allergy/AdvReac Type Severity Reaction Status Date / Time phenazopyridine Allergy Rash/Hives Verified 02/14/21 10:19 [From Pyridium] venom-honey bee Allergy Swelling Verified 02/14/21 10:19 Review of Systems ROS Statement: Those systems with pertinent positive or pertinent negative responses have been documented in the HPI. ROS Other: All systems not noted in ROS Statement are negative. 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 OB history: She has had 2 SAB, 1 ectopic and 3 vaginal deliveries. This is her seventh History of Any Multi-Drug Resistant Organisms: None Reported Additional Past Surgical History / Comment(s): D&C, EXPLORATORY LAP Past Anesthesia/Blood Transfusion Reactions: No Reported Reaction Past Psychological History: Anxiety, Depression, PTSD Smoking Status: Current every day smoker Past Alcohol Use History: Rare Past Drug Use History: Marijuana - Past Family History Sister(s) Family Medical History: Asthma Additional Family Medical History / Comment(s): aunt- thyroid disease Mother History Unknown: Yes Family Medical History: No Reported History Father History Unknown: Yes Family Medical History: No Reported History General Exam Limitations: no limitations General appearance: alert, in no apparent distress Head exam: Present: atraumatic, normocephalic, normal inspection Eye exam: Present: normal appearance, PERRL, EOMI. Absent: scleral icterus, conjunctival injection, periorbital swelling ENT exam: Present: normal exam, normal oropharynx, mucous membranes moist Neck exam: Present: normal inspection, full ROM. Absent: tenderness, meningismus, lymphadenopathy, thyromegaly Respiratory exam: Present: normal lung sounds bilaterally. Absent: respiratory distress, wheezes, rales, rhonchi, stridor, chest wall tenderness, accessory muscle use, decreased breath sounds, prolonged expiratory Cardiovascular Exam: Present: tachycardia GI/Abdominal exam: Present: soft, normal bowel sounds. Absent: distended, tenderness, guarding, rebound, rigid Extremities exam: Present: normal inspection, full ROM, normal capillary refill. Absent: tenderness, pedal edema, joint swelling, calf tenderness Back exam: Present: normal inspection, full ROM, tenderness (Right flank and paraspinal thoracic lumbar). Absent: muscle spasm, paraspinal tenderness, vertebral tenderness Expanded Back exam: Absent: saddle anesthesia Back exam: Positive Straight Leg Raise: Right, Negative Straight Leg Raising: Left Neurological exam: Present: alert, oriented X3, CN II-XII intact Psychiatric exam: Present: normal affect, normal mood Skin exam: Present: warm, dry, intact, normal color. Absent: rash, cyanosis, diaphoretic, erythema, petechiae, pallor, mottled Course Vital Signs 02/14/21 10:20 Temperature 98.1 F Pulse Rate 107 H Respiratory 16 Rate Blood Pressure 140/95 O2 Sat by Pulse 100 Oximetry Medical Decision Making - Medical Decision Making Patient is able to ambulate in the vincent with steady shuffling gait. States that the pain is mostly in her "fat" of her right-side. She was offered an x-ray and refuses at this time. Patient was directed to take Tylenol and use topical icy hot on the area. She states that she has an appointment coming up with Dr. Camargo her [employer]. She is directed to return to the emergency room with a increasing pain, incontinence of bowel or bladder or vaginal bleeding. Patient is agreeable to this plan of care. Case discussed with Dr. Funes. Disposition Clinical Impression: Fall Disposition: HOME SELF-CARE Condition: Fair Instructions (If sedation given, give patient instructions): Fall Prevention (ED) Additional Instructions: Take Tylenol 650 mg every 4-6 hours for pain and use icy hot topically to the area or right side. Return if any worsening pain, vaginal bleeding or incontinence of bowel or bladder. Keep your appointment with Dr. Camargo Prescriptions: diphenhydrAMINE [Benadryl] 25 mg PO QID PRN #20 capsule PRN Reason: Nausea Acetaminophen [Tylenol] 500 mg PO Q4-6H PRN #30 tab PRN Reason: Pain Is patient prescribed a controlled substance at d/c from ED?: No Referrals: Chad Mireles DO [Primary Care Provider] - 1-2 days Ashley Camargo DO [Family Provider] - 1-2 days Time of Disposition: 11:37
[2021-02-14 11:56] VITALS: BP 138/79; PULSE 88; RESP 20; TEMP 98
== END 2021-02-14 11:55 | disposition home or self-care (01) ==
LOC: EC 10:18
DX: O26.891 Other specified pregnancy related conditions, first trimester (principal); R10.9 Unspecified abdominal pain; M54.6 Pain in thoracic spine; M54.5 Low back pain; O99.611 Diseases of the digestive system complicating pregnancy, first trimester; K21.9 Gastro-esophageal reflux disease without esophagitis; O99.331 Smoking (tobacco) complicating pregnancy, first trimester; F17.200 Nicotine dependence, unspecified, uncomplicated; O99.321 Drug use complicating pregnancy, first trimester; F12.90 Cannabis use, unspecified, uncomplicated; Z3A.01 Less than 8 weeks gestation of pregnancy; Z79.899 Other long term (current) drug therapy; W10.9XXA Fall (on) (from) unspecified stairs and steps, initial encounter
CPT/HCPCS: 99283

== ENCOUNTER 2021-02-21 09:56 | Emergency (ER) | payer OTHER ==
[2021-02-21 10:20] VITALS: TEMP 97.9
[2021-02-21] MEDS ORDERED: ONDANSETRON 4 MG/2 ML VIAL IVP STA (10:24)
[2021-02-21] MEDS ORDERED: SODIUM CHLORIDE 0.9% 1,000 ML IV STA (10:24)
[2021-02-21] MEDS ORDERED: ACETAMINOPHEN TAB 500 MG TAB PO STA (10:25)
[2021-02-21 11:08] LABS: Basophils % (A) 0 %; Eosinophils # (A) 0.1 k/uL (0-0.7); Eosinophils % (A) 1 %; HCT 39.4 % (34.0-46.0); HGB 13.3 gm/dL (11.4-16.0); Lymphocytes # (A) 1.7 k/uL (1.0-4.8); Lymphocytes % (A) 19 %; MCH 31.6 pg (25.0-35.0); MCHC 33.7 g/dL (31.0-37.0); MCV 93.8 fL (80.0-100.0); Mean Platelet Volume 8.6; Monocytes # (A) 0.5 k/uL (0-1.0); Monocytes % (A) 5 %; Neutrophils # (A) 6.5 k/uL (1.3-7.7); Neutrophils % (A) 73 %; Platelet Count 263 k/uL (150-450); RDW 11.8 % (11.5-15.5); WBC 8.8 k/uL (3.8-10.6)
[2021-02-21 11:14] LABS: Amorphous Sediment,Urine Rare /hpf; Appearance,Urine Cloudy (Clear); Bacteria,Urine Occasional /hpf; Bilirubin,Urine Negative (Negative); Blood,Urine Negative (Negative); Color,Urine Yellow; Glucose,Urine (UA) Negative (Negative); Ketones,Urine Negative (Negative); Leukocyte Esterase,Urine Negative (Negative); Mucus,Urine Rare /hpf; Nitrite,Urine Negative (Negative); PH, Urine 8.5 (5.0-8.0); Protein,Urine Negative (Negative); Squamous Epithelial Cell,Urine 11 /hpf (0-4); Urobilinogen,Urine <2.0 mg/dL (<2.0); WBC,Urine 1 /hpf (0-5)
[2021-02-21 11:20] LABS: ALT 20 U/L (4-34); AST 26 U/L (14-36); African American GFR (CKD) >90 (>60 ml/min/1.73 sqM); Albumin 4.4 g/dL (3.5-5.0); Alkaline Phosphatase 44 U/L (38-126); Amylase 59 U/L (30-110); Anion Gap 9 mmol/L; Blood Urea Nitrogen 6 mg/dL (7-17); Calcium 9.7 mg/dL (8.4-10.2); Carbon Dioxide 20 mmol/L (22-30); Chloride 108 mmol/L (98-107); Glucose 103 mg/dL (74-99); Lipase 73 U/L (23-300); Non-African American GFR(CKD) >90 (>60 ml/min/1.73 sqM); Potassium 3.8 mmol/L (3.5-5.1); Sodium 137 mmol/L (137-145); Total Bilirubin 0.7 mg/dL (0.2-1.3); Total Protein 6.9 g/dL (6.3-8.2)
--- NOTE | 2021-02-21 11:39 | US ---
EXAMINATION TYPE: US gallbladder DATE OF EXAM: 02/21/2021 COMPARISON: NONE CLINICAL HISTORY: RUQ pain. Abdominal pain, vomiting EXAM MEASUREMENTS: Liver Length: 15.3 cm Gallbladder Wall: 0.3 cm CBD: 0.3 cm Right Kidney: 11.6 x 4.7 x 4.3 cm Pancreas: Tail obscured by overlying bowel gas Liver: wnl Gallbladder: wnl Evidence for sonographic Lozada's sign: no CBD: wnl Right Kidney: no evidence of hydronephrosis IMPRESSION: 1. No definite acute process.
--- NOTE | 2021-02-21 11:41 | US ---
EXAMINATION TYPE: Transabdominal DATE OF EXAM: 02/21/2021 11:30 AM COMPARISON: NONE CLINICAL HISTORY: RO ectopic. abdominal pain EXAM PERFORMED: Transabdominal (TA) EXAM MEASUREMENTS: GESTATIONAL AGE / DATING Physician Established: Not yet established Dates by LMP: (7 weeks/1 days) EDC: 10/09/21 Dates by First Scan: No previous this is first scan Dates by Current Scan for: (6 weeks/5 days) EDC: 10/12/21 - MSD MATERNAL ANATOMY Uterus: 8.7 x 6.7 x 7.9cm Right Ovary: 4.0 x 1.8 x 2.0cm Left Ovary: 4.1 x 2.3 x 3.7cm Post CDS / Adnexa: wnl Presence of free fluid: no Presence of corpus luteal cyst: yes, hypoechoic area left ovary = 2.3 x 2.2 x 2.1cm Presence of subchorionic bleed: yes, fluid collections adjacent to GS = 1.7cm GESTATION / SURVEY MSD: 1.8cm (6 weeks/5 days) Yolk Sac (normal less than 6mm): 0.3cm IUP: no evidence of pole at this time ?too early Date of LMP: 01/02/21 Beta HcG (if available): Not available at this time IMPRESSION: There is a fluid-filled sac measuring 1.8 cm within the endometrium. No definite pole. Differen tial diagnosis would include a normal too early to detect. Missed or ectopic pregn adilia not excluded. There is an adjacent fluid collection measuring 1.7 cm relative to the 1.8 cm poss ible gestational sac which could represent subchorionic hemorrhage. Correlate with serial beta hCG an d pelvic ultrasound.
[2021-02-21 12:05] LABS: HCG,Quantitative Serum 37695.4 mIU/mL
--- NOTE | 2021-02-21 12:21 | ED ---
General Adult HPI - General Chief complaint: Nausea/Vomiting/Diarrhea Stated complaint: Vomiting/Dizziness Time Seen by Provider: 02/21/21 10:20 Source: patient, RN notes reviewed Mode of arrival: ambulatory Limitations: no limitations - History of Present Illness Initial comments: 30-year-old female that presents to the emergency department complaining of nausea vomiting and being approximately 1-2 weeks. She notes that this all started approximately around 4:00 last night while at work. She notes that he has progressively gotten worse patientcalled her [employer] who told her to come in to the emergency room to get evaluated. Patient notes that she has abdominal discomfort most likely from being nauseous and retching for the last day. She denied any other issues or complaints at this time. She was otherwise a well- appearing 30-year-old female. She denied any chest pain shortness of breath headache diarrhea constipation fever fatigue chills. - Related Data Home Medications Medication Instructions Recorded Confirmed Acetaminophen [Tylenol] 500 mg PO Q4H PRN 02/21/21 02/21/21 Nitrofurantoin Macrocrystal 100 mg PO BID 02/21/21 02/21/21 [Macrodantin] Previous Rx's Medication Instructions Recorded diphenhydrAMINE [Benadryl] 25 mg PO QID PRN #20 capsule 02/14/21 Ondansetron Odt [Zofran Odt] 4 mg PO Q8HR PRN #10 tab 02/21/21 Allergies Allergy/AdvReac Type Severity Reaction Status Date / Time phenazopyridine Allergy Rash/Hives Verified 02/21/21 11:37 [From Pyridium] venom-honey bee Allergy Swelling Verified 02/21/21 11:37 Review of Systems ROS Statement: Those systems with pertinent positive or pertinent negative responses have been documented in the HPI. ROS Other: All systems not noted in ROS Statement are negative. 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 OB history: She has had 2 SAB, 1 ectopic and 3 vaginal deliveries. This is her seventh History of Any Multi-Drug Resistant Organisms: None Reported Additional Past Surgical History / Comment(s): D&C, EXPLORATORY LAP Past Anesthesia/Blood Transfusion Reactions: No Reported Reaction Past Psychological History: Anxiety, Depression, PTSD Smoking Status: Current every day smoker Past Alcohol Use History: Rare Past Drug Use History: Marijuana - Past Family History Sister(s) Family Medical History: Asthma Additional Family Medical History / Comment(s): aunt- thyroid disease Mother History Unknown: Yes Family Medical History: No Reported History Father History Unknown: Yes Family Medical History: No Reported History General Exam Limitations: no limitations General appearance: alert, in no apparent distress, in distress Head exam: Present: atraumatic, normocephalic, normal inspection Eye exam: Present: normal appearance, PERRL, EOMI. Absent: scleral icterus, conjunctival injection, periorbital swelling Neck exam: Present: normal inspection Respiratory exam: Present: normal lung sounds bilaterally. Absent: respiratory distress, wheezes, rales, rhonchi, stridor Cardiovascular Exam: Present: regular rate, normal rhythm, normal heart sounds. Absent: systolic murmur, diastolic murmur, rubs, gallop, clicks GI/Abdominal exam: Present: soft, normal bowel sounds, other (Generalized discomfort throughout the entire abdomen.). Absent: distended, tenderness, guarding, rebound, rigid Extremities exam: Present: normal inspection, full ROM, normal capillary refill. Absent: tenderness, pedal edema, joint swelling, calf tenderness Neurological exam: Present: alert, oriented X3 Psychiatric exam: Present: normal affect, normal mood Skin exam: Present: warm, dry, intact, normal color. Absent: rash Course Vital Signs 02/21/21 10:16 Temperature 97.9 F Pulse Rate 70 Respiratory 18 Rate Blood Pressure 120/73 O2 Sat by Pulse 100 Oximetry Medical Decision Making - Medical Decision Making 30-year-old female with nausea and vomiting for the past day, approximately 2 weeks . Labs, 1 L normal saline, 4 mg Zofran, 1000 mg Tylenol, also the gallbladder, ultrasound ordered. Labs unremarkable. Beta hC,695.4. Ultrasound gallbladder negative for any acute process. His discussed with Dr. Bailey, patient can discharge home with close follow-up to [employer] and serial hCGs. - Lab Data Result diagrams: 02/21/21 10:45 02/21/21 10:45 Lab Results 02/21/21 02/21/21 02/21/21 Range/Units 10:45 10:45 10:45 WBC 8.8 (3.8-10.6) k/uL RBC 4.20 (3.80-5.40) m/uL Hgb 13.3 (11.4-16.0) gm/dL Hct 39.4 (34.0-46.0) % MCV 93.8 (80.0-100.0) fL MCH 31.6 (25.0-35.0) pg MCHC 33.7 (31.0-37.0) g/dL RDW 11.8 (11.5-15.5) % Plt Count 263 (150-450) k/uL MPV 8.6 Neutrophils % 73 % Lymphocytes % 19 % Monocytes % 5 % Eosinophils % 1 % Basophils % 0 % Neutrophils # 6.5 (1.3-7.7) k/uL Lymphocytes # 1.7 (1.0-4.8) k/uL Monocytes # 0.5 (0-1.0) k/uL Eosinophils # 0.1 (0-0.7) k/uL Basophils # 0.0 (0-0.2) k/uL Sodium 137 (137-145) mmol/L Potassium 3.8 (3.5-5.1) mmol/L Chloride 108 H (98-107) mmol/L Carbon Dioxide 20 L (22-30) mmol/L Anion Gap 9 mmol/L BUN 6 L (7-17) mg/dL Creatinine 0.52 (0.52-1.04) mg/dL Est GFR (CKD-EPI)AfAm >90 (>60 ml/min/1.73 sqM) Est GFR (CKD-EPI)NonAf >90 (>60 ml/min/1.73 sqM) Glucose 103 H (74-99) mg/dL Calcium 9.7 (8.4-10.2) mg/dL Total Bilirubin 0.7 (0.2-1.3) mg/dL AST 26 (14-36) U/L ALT 20 (4-34) U/L Alkaline Phosphatase 44 (38-126) U/L Total Protein 6.9 (6.3-8.2) g/dL Albumin 4.4 (3.5-5.0) g/dL Amylase 59 (30-110) U/L Lipase 73 (23-300) U/L HCG, Quant 32512.4 mIU/mL Urine Color Yellow Urine Appearance Cloudy H (Clear) Urine pH 8.5 H (5.0-8.0) Ur Specific [place] 1.010 (1.001-1.035) Urine Protein Negative (Negative) Urine Glucose (UA) Negative (Negative) Urine Ketones Negative (Negative) Urine Blood Negative (Negative) Urine Nitrite Negative (Negative) Urine Bilirubin Negative (Negative) Urine Urobilinogen <2.0 (<2.0) mg/dL Ur Leukocyte Esterase Negative (Negative) Urine WBC 1 (0-5) /hpf Ur Squamous Epith Cells 11 H (0-4) /hpf Amorphous Sediment Rare H (None) /hpf Urine Bacteria Occasional H (None) /hpf Urine Mucus Rare H (None) /hpf Urine HCG, Qual (Not Detectd) 02/21/21 Range/Units 10:45 WBC (3.8-10.6) k/uL RBC (3.80-5.40) m/uL Hgb (11.4-16.0) gm/dL Hct (34.0-46.0) % MCV (80.0-100.0) fL MCH (25.0-35.0) pg MCHC (31.0-37.0) g/dL RDW (11.5-15.5) % Plt Count (150-450) k/uL MPV Neutrophils % % Lymphocytes % % Monocytes % % Eosinophils % % Basophils % % Neutrophils # (1.3-7.7) k/uL Lymphocytes # (1.0-4.8) k/uL Monocytes # (0-1.0) k/uL Eosinophils # (0-0.7) k/uL Basophils # (0-0.2) k/uL Sodium (137-145) mmol/L Potassium (3.5-5.1) mmol/L Chloride (98-107) mmol/L Carbon Dioxide (22-30) mmol/L Anion Gap mmol/L BUN (7-17) mg/dL Creatinine (0.52-1.04) mg/dL Est GFR (CKD-EPI)AfAm (>60 ml/min/1.73 sqM) Est GFR (CKD-EPI)NonAf (>60 ml/min/1.73 sqM) Glucose (74-99) mg/dL Calcium (8.4-10.2) mg/dL Total Bilirubin (0.2-1.3) mg/dL AST (14-36) U/L ALT (4-34) U/L Alkaline Phosphatase (38-126) U/L Total Protein (6.3-8.2) g/dL Albumin (3.5-5.0) g/dL Amylase (30-110) U/L Lipase (23-300) U/L HCG, Quant mIU/mL Urine Color Urine Appearance (Clear) Urine pH (5.0-8.0) Ur Specific [place] (1.001-1.035) Urine Protein (Negative) Urine Glucose (UA) (Negative) Urine Ketones (Negative) Urine Blood (Negative) Urine Nitrite (Negative) Urine Bilirubin (Negative) Urine Urobilinogen (<2.0) mg/dL Ur Leukocyte Esterase (Negative) Urine WBC (0-5) /hpf Ur Squamous Epith Cells (0-4) /hpf Amorphous Sediment (None) /hpf Urine Bacteria (None) /hpf Urine Mucus (None) /hpf Urine HCG, Qual Detected (Not Detectd) - Radiology Data Radiology results: report reviewed, image reviewed There is a fluid-filled sac measuring 1.8 cm within the endometrium. No definitive pole. Differential diagnosis would include a normal to really detect. Missed or ectopic not excluded. There is no adjacent fluid collection measuring 1.7 cm relative to the 1.8 similar possible gestational sac which could represent subchorionic hemorrhage. Disposition Clinical Impression: Dehydration, Nausea & vomiting Disposition: HOME SELF-CARE Condition: Stable Instructions (If sedation given, give patient instructions): Acute Nausea and Vomiting (ED) Additional Instructions: Please return to the Emergency Department if symptoms worsen or any other concerns. Follow-up with [employer] in next 1-2 days. Repeat hCG in 2 days. Increase oral fluids. Take Zofran as prescribed. Is patient prescribed a controlled substance at d/c from ED?: No Referrals: Chad Mireles DO [Primary Care Provider] - 1-2 days Time of Disposition: 12:21
[2021-02-21 12:42] VITALS: BP 117/69; PULSE 83; RESP 16
== END 2021-02-21 12:42 | disposition home or self-care (01) ==
LOC: EC 09:56
DX: O21.9 Vomiting of pregnancy, unspecified (principal); E86.0 Dehydration; K21.9 Gastro-esophageal reflux disease without esophagitis; F31.9 Bipolar disorder, unspecified; F17.200 Nicotine dependence, unspecified, uncomplicated; F12.90 Cannabis use, unspecified, uncomplicated; Z91.030 Bee allergy status; Z3A.01 Less than 8 weeks gestation of pregnancy
CPT/HCPCS: 99284; 96374; 96361; 36415; 80053; 82150; 83690; 85025; 81001; 81025; 84702; 76801; 76705; J2405

== ENCOUNTER 2021-04-05 10:07 | Emergency (ER) | payer OTHER ==
[2021-04-05 10:15] VITALS: BP 120/83; PULSE 98; RESP 18; TEMP 97.6
[2021-04-05] MEDS ORDERED: ONDANSETRON 4 MG/2 ML VIAL IVP STA (10:40)
[2021-04-05] MEDS ORDERED: SODIUM CHLORIDE 0.9% 2,000 ML IV ONE (10:40)
[2021-04-05 10:47] LABS: Appearance,Urine Cloudy (Clear); Bilirubin,Urine Negative (Negative); Blood,Urine Trace (Negative); Color,Urine Yellow; Glucose,Urine (UA) Negative (Negative); Ketones,Urine Negative (Negative); Leukocyte Esterase,Urine Large (Negative); Mucus,Urine Moderate /hpf; Nitrite,Urine Negative (Negative); Protein,Urine 1+ (Negative); RBC,Urine 6 /hpf (0-5); Specific Gravity,Urine 1.019 (1.001-1.035); Squamous Epithelial Cell,Urine 24 /hpf (0-4); WBC,Urine 3 /hpf (0-5)
[2021-04-05 11:05] LABS: Basophils % (A) 0 %; Eosinophils # (A) 0.1 k/uL (0-0.7); Eosinophils % (A) 1 %; HGB 13.5 gm/dL (11.4-16.0); Lymphocytes # (A) 1.5 k/uL (1.0-4.8); Lymphocytes % (A) 12 %; MCH 33.4 pg (25.0-35.0); MCHC 36.4 g/dL (31.0-37.0); MCV 91.6 fL (80.0-100.0); Mean Platelet Volume 8.4; Monocytes # (A) 0.5 k/uL (0-1.0); Monocytes % (A) 4 %; Neutrophils # (A) 10.6 k/uL (1.3-7.7); Neutrophils % (A) 83 %; Platelet Count 247 k/uL (150-450); RBC 4.04 m/uL (3.80-5.40); RDW 12.1 % (11.5-15.5); WBC 12.8 k/uL (3.8-10.6)
--- NOTE | 2021-04-05 11:13 | US ---
EXAMINATION TYPE: Transabdominal DATE OF EXAM: 04/05/2021 10:49 AM COMPARISON: Previous exam 02/21/2021 CLINICAL HISTORY: pain. Pt states cramping since yesterday EXAM PERFORMED: Transabdominal (TA) EXAM MEASUREMENTS: GESTATIONAL AGE / DATING Physician Established: (11 weeks/5 days) EDC: 10/20/2021 Dates by LMP: LMP unknown Dates by First Scan: No previous this is first scan Dates by Current Scan for: (12 weeks/6 days) EDC: 10/12/2021 MATERNAL ANATOMY Uterus: 14.0 x 6.8 x 10.2 cm Right Ovary: 3.6 x 2.4 x 1.6 Left Ovary: 3.6 x 3.8 x 2.3 cm Post CDS / Adnexa: wnl Presence of free fluid: No Presence of corpus luteal cyst: Left Ovary= 2.5 x 1.6 x 2.1 cm Presence of subchorionic bleed: No GESTATION / SURVEY CRL: 6.5 cm (12 weeks/6 days) MSD: wnl Heart Rate: 153 bpm Rhythm: Normal IUP: Viable IUP Nuchal Translucency 10-14wks (normal less than 3mm): 2mm Single, viable IUP/ No abnormality visualized at this time Previously identified subchorionic hemorrhage is no longer conspicuous. IMPRESSION: Single viable intrauterine corresponding to an ultrasound age 12 weeks 6 days with estimate d date delivery 01/13/2021 by today's exam
[2021-04-05 11:16] LABS: ALT 11 U/L (4-34); AST 20 U/L (14-36); African American GFR (CKD) >90 (>60 ml/min/1.73 sqM); Albumin 3.9 g/dL (3.5-5.0); Alkaline Phosphatase 37 U/L (38-126); Anion Gap 8 mmol/L; Blood Urea Nitrogen 8 mg/dL (7-17); Calcium 9.4 mg/dL (8.4-10.2); Carbon Dioxide 20 mmol/L (22-30); Chloride 105 mmol/L (98-107); Glucose 90 mg/dL (74-99); Non-African American GFR(CKD) >90 (>60 ml/min/1.73 sqM); Potassium 3.8 mmol/L (3.5-5.1); Sodium 133 mmol/L (137-145); Total Bilirubin 0.7 mg/dL (0.2-1.3); Total Protein 6.5 g/dL (6.3-8.2)
--- NOTE | 2021-04-05 11:20 | ED ---
Abdominal Pain HPI - General Chief Complaint: Abdominal Pain Stated Complaint: 11wks preg Abdominal Cramping Time Seen by Provider: 04/05/21 10:20 Source: patient, RN notes reviewed Mode of arrival: ambulatory Limitations: no limitations - History of Present Illness Initial Comments: 30-year-old female presents emergency Department chief complaint of right lower quadrant pain, pain in . Patient states that she currently and seen Dr. Camargo. Patient has no vaginal bleeding vaginal discharge. She states she has some cramping this morning thought she had have bowel movement that should she did no relief. Patient's been having ongoing nausea vomiting dehydrated. Patient denies any flank pain no history kidney stones denies chest pain shortness breath fevers chills - Related Data Home Medications Medication Instructions Recorded Confirmed Acetaminophen [Tylenol] 500 mg PO Q4H PRN 02/21/21 02/21/21 Nitrofurantoin Macrocrystal 100 mg PO BID 02/21/21 02/21/21 [Macrodantin] Previous Rx's Medication Instructions Recorded diphenhydrAMINE [Benadryl] 25 mg PO QID PRN #20 capsule 02/14/21 Ondansetron Odt [Zofran Odt] 4 mg PO Q8HR PRN #10 tab 02/21/21 Allergies Allergy/AdvReac Type Severity Reaction Status Date / Time phenazopyridine Allergy Rash/Hives Verified 04/05/21 10:15 [From Pyridium] venom-honey bee Allergy Swelling Verified 04/05/21 10:15 Review of Systems ROS Statement: Those systems with pertinent positive or pertinent negative responses have been documented in the HPI. ROS Other: All systems not noted in ROS Statement are negative. 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 OB history: She has had 2 SAB, 1 ectopic and 3 vaginal deliveries. This is her seventh History of Any Multi-Drug Resistant Organisms: None Reported Additional Past Surgical History / Comment(s): D&C, EXPLORATORY LAP Past Anesthesia/Blood Transfusion Reactions: No Reported Reaction Past Psychological History: Anxiety, Depression, PTSD Smoking Status: Current every day smoker Past Alcohol Use History: Rare Past Drug Use History: Marijuana - Past Family History Sister(s) Family Medical History: Asthma Additional Family Medical History / Comment(s): aunt- thyroid disease Mother History Unknown: Yes Family Medical History: No Reported History Father History Unknown: Yes Family Medical History: No Reported History General Exam Limitations: no limitations General appearance: alert, in no apparent distress Head exam: Present: atraumatic, normocephalic, normal inspection ENT exam: Present: normal exam, normal oropharynx, mucous membranes moist Neck exam: Present: normal inspection. Absent: tenderness, meningismus, lymphadenopathy Respiratory exam: Present: normal lung sounds bilaterally. Absent: respiratory distress, wheezes, rales, rhonchi, stridor Cardiovascular Exam: Present: regular rate, normal rhythm, normal heart sounds. Absent: systolic murmur, diastolic murmur, rubs, gallop, clicks GI/Abdominal exam: Present: soft, normal bowel sounds. Absent: distended, tenderness, guarding, rebound, rigid Back exam: Absent: CVA tenderness (R), CVA tenderness (L) Neurological exam: Present: alert Course Vital Signs 04/05/21 10:12 Temperature 97.6 F Pulse Rate 98 Respiratory 18 Rate Blood Pressure 120/83 O2 Sat by Pulse 97 Oximetry Medical Decision Making - Medical Decision Making Ultrasound is unremarkable there is no acute process for her patient does have some hematuria and pain to right flank may be concerning for a kidney stone patient was well hydrated, feels comfortable discharged taking Tylenol. - Lab Data Result diagrams: 04/05/21 10:53 04/05/21 10:53 Lab Results 04/05/21 04/05/21 04/05/21 Range/Units 10:27 10:53 10:53 WBC 12.8 H (3.8-10.6) k/uL RBC 4.04 (3.80-5.40) m/uL Hgb 13.5 (11.4-16.0) gm/dL Hct 37.0 (34.0-46.0) % MCV 91.6 (80.0-100.0) fL MCH 33.4 (25.0-35.0) pg MCHC 36.4 (31.0-37.0) g/dL RDW 12.1 (11.5-15.5) % Plt Count 247 (150-450) k/uL MPV 8.4 Neutrophils % 83 % Lymphocytes % 12 % Monocytes % 4 % Eosinophils % 1 % Basophils % 0 % Neutrophils # 10.6 H (1.3-7.7) k/uL Lymphocytes # 1.5 (1.0-4.8) k/uL Monocytes # 0.5 (0-1.0) k/uL Eosinophils # 0.1 (0-0.7) k/uL Basophils # 0.0 (0-0.2) k/uL Sodium 133 L (137-145) mmol/L Potassium 3.8 (3.5-5.1) mmol/L Chloride 105 (98-107) mmol/L Carbon Dioxide 20 L (22-30) mmol/L Anion Gap 8 mmol/L BUN 8 (7-17) mg/dL Creatinine 0.49 L (0.52-1.04) mg/dL Est GFR (CKD-EPI)AfAm >90 (>60 ml/min/1.73 sqM) Est GFR (CKD-EPI)NonAf >90 (>60 ml/min/1.73 sqM) Glucose 90 (74-99) mg/dL Calcium 9.4 (8.4-10.2) mg/dL Total Bilirubin 0.7 (0.2-1.3) mg/dL AST 20 (14-36) U/L ALT 11 (4-34) U/L Alkaline Phosphatase 37 L (38-126) U/L Total Protein 6.5 (6.3-8.2) g/dL Albumin 3.9 (3.5-5.0) g/dL Urine Color Yellow Urine Appearance Cloudy H (Clear) Urine pH 8.0 (5.0-8.0) Ur Specific [place] 1.019 (1.001-1.035) Urine Protein 1+ H (Negative) Urine Glucose (UA) Negative (Negative) Urine Ketones Negative (Negative) Urine Blood Trace H (Negative) Urine Nitrite Negative (Negative) Urine Bilirubin Negative (Negative) Urine Urobilinogen 2.0 (<2.0) mg/dL Ur Leukocyte Esterase Large H (Negative) Urine RBC 6 H (0-5) /hpf Urine WBC 3 (0-5) /hpf Ur Squamous Epith Cells 24 H (0-4) /hpf Urine Mucus Moderate H (None) /hpf Disposition Clinical Impression: Abdominal pain, Hematuria Disposition: HOME SELF-CARE Condition: Stable Instructions (If sedation given, give patient instructions): Abdominal Pain (ED) Additional Instructions: Please return to the Emergency Department if symptoms worsen or any other concerns. Is patient prescribed a controlled substance at d/c from ED?: No Referrals: Chad Mireles DO [Primary Care Provider] - 1-2 days Time of Disposition: 11:46
== END 2021-04-05 12:02 | disposition home or self-care (01) ==
LOC: EC 10:07
DX: O26.891 Other specified pregnancy related conditions, first trimester (principal); O21.9 Vomiting of pregnancy, unspecified; O99.611 Diseases of the digestive system complicating pregnancy, first trimester; O99.331 Smoking (tobacco) complicating pregnancy, first trimester; R31.9 Hematuria, unspecified; K21.9 Gastro-esophageal reflux disease without esophagitis; F41.9 Anxiety disorder, unspecified; F32.9 Major depressive disorder, single episode, unspecified; F43.12 Post-traumatic stress disorder, chronic; F12.90 Cannabis use, unspecified, uncomplicated; Z3A.11 11 weeks gestation of pregnancy
CPT/HCPCS: 99284; 96374; 96361; 36415; 80053; 85025; 81001; 76813; 76801; J2405

== ENCOUNTER 2021-05-22 09:04 | Emergency (ER) | payer OTHER ==
[2021-05-22 09:18] VITALS: RESP 18; TEMP 97.8
[2021-05-22] MEDS ORDERED: ONDANSETRON 4 MG/2 ML VIAL IVP STA (10:04)
[2021-05-22] MEDS ORDERED: SODIUM CHLORIDE 0.9% 1,000 ML IV STA (10:04)
--- NOTE | 2021-05-22 10:54 | ED ---
URI HPI - General Chief Complaint: Upper Respiratory Infection Stated Complaint: cough & fever Source: patient, RN notes reviewed Mode of arrival: ambulatory Limitations: no limitations - History of Present Illness Initial Comments: Patient is a 30-year-old female that presents to the emergency department with both kids and stating that she is upper respiratory tract symptoms. Mom states that 2 children were diagnosed with RSV about a week and a half ago. Mom notes that she's been having upper respiratory tract symptoms such as cough and chest congestion and nasal drainage. She notes that she's been trying to do Tylenol Motrin at home. She notes that she is also 18 weeks and is concerned about possibly getting dehydrated as she is having some nausea and vomiting. Mom is otherwise well-appearing. She denied any other issues or complaints. She notes that she is a high-risk and would like to forego a chest x-ray this time. Mom denied any chest pain headache constipation diarrhea fever fatigue chills. - Related Data Home Medications Medication Instructions Recorded Confirmed Acetaminophen [Tylenol] 500 mg PO Q4HR PRN 05/22/21 05/22/21 Allergies Allergy/AdvReac Type Severity Reaction Status Date / Time phenazopyridine Allergy Rash/Hives Verified 05/22/21 10:05 [From Pyridium] venom-honey bee Allergy Swelling Verified 05/22/21 10:05 Review of Systems ROS Statement: Those systems with pertinent positive or pertinent negative responses have been documented in the HPI. ROS Other: All systems not noted in ROS Statement are negative. 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 OB history: She has had 2 SAB, 1 ectopic and 3 vaginal deliveries. This is her seventh History of Any Multi-Drug Resistant Organisms: None Reported Additional Past Surgical History / Comment(s): D&C, EXPLORATORY LAP Past Anesthesia/Blood Transfusion Reactions: No Reported Reaction Past Psychological History: Anxiety, Depression, PTSD Smoking Status: Current every day smoker Past Alcohol Use History: Rare Past Drug Use History: Marijuana - Past Family History Sister(s) Family Medical History: Asthma Additional Family Medical History / Comment(s): aunt- thyroid disease Mother History Unknown: Yes Family Medical History: No Reported History Father History Unknown: Yes Family Medical History: No Reported History General Exam Limitations: no limitations General appearance: alert, in no apparent distress Head exam: Present: atraumatic, normocephalic, normal inspection Eye exam: Present: normal appearance, PERRL, EOMI. Absent: scleral icterus, conjunctival injection, periorbital swelling ENT exam: Present: normal exam, mucous membranes moist Neck exam: Present: normal inspection Respiratory exam: Present: normal lung sounds bilaterally. Absent: respiratory distress, wheezes, rales, rhonchi, stridor Cardiovascular Exam: Present: regular rate, normal rhythm, normal heart sounds. Absent: systolic murmur, diastolic murmur, rubs, gallop, clicks Extremities exam: Present: normal inspection, full ROM, normal capillary refill. Absent: tenderness, pedal edema, joint swelling, calf tenderness Neurological exam: Present: alert, oriented X3 Psychiatric exam: Present: normal affect, normal mood Skin exam: Present: warm, dry, intact, normal color. Absent: rash Course Vital Signs 05/22/21 09:15 Temperature 97.8 F Pulse Rate 95 Respiratory 18 Rate Blood Pressure 120/72 O2 Sat by Pulse 99 Oximetry Medical Decision Making - Medical Decision Making 30-year-old female complaining of upper respiratory tract symptoms. Cepheid 4 Plex, 1 L normal saline, 4 mg of Zofran ordered. Patient deferred chest x-ray due to status. Cepheid 4 Plex negative. Patient is agreeable with discharge home with conservative management felt primary care and [facility]ST[facility]. Case discussed with Dr. Lofton, patient can discharge home. - Lab Data Lab Results 05/22/21 Range/Units 11:22 Influenza Type A (PCR) Not Detected (Not Detectd) Influenza Type B (PCR) Not Detected (Not Detectd) RSV (PCR) Not Detected (Not Detectd) SARS-CoV-2 (PCR) Not Detected (Not Detectd) Disposition Clinical Impression: Upper respiratory tract infection Disposition: HOME SELF-CARE Condition: Stable Instructions (If sedation given, give patient instructions): Upper Respiratory Infection (ED) Additional Instructions: Please return to the Emergency Department if symptoms worsen or any other concerns. Follow-up with primary care and [facility] in 1-2 days. Continue Tylenol Motrin as needed for fevers. Is patient prescribed a controlled substance at d/c from ED?: No Referrals: Chad Mireles DO [Primary Care Provider] - 1-2 days Time of Disposition: 12:56
[2021-05-22] MEDS ORDERED: ONDANSETRON 4 MG ODT STARTER PACK 2 TAB BTL PO STA (12:55)
[2021-05-22 13:17] VITALS: BP 124/84; PULSE 84
== END 2021-05-22 13:17 | disposition home or self-care (01) ==
LOC: EC 09:04
DX: O99.512 Diseases of the respiratory system complicating pregnancy, second trimester (principal); J06.9 Acute upper respiratory infection, unspecified; Z20.822 Contact with and (suspected) exposure to COVID-19; O99.332 Smoking (tobacco) complicating pregnancy, second trimester; F17.200 Nicotine dependence, unspecified, uncomplicated; O99.322 Drug use complicating pregnancy, second trimester; F12.90 Cannabis use, unspecified, uncomplicated; Z3A.18 18 weeks gestation of pregnancy
CPT/HCPCS: 99283 ×2; 96374 ×2; 96361 ×3; 87636; J2405; S0119

== ENCOUNTER 2021-07-21 10:45 | Outpatient (CLI) | payer OTHER ==
[2021-07-21 11:21] LABS: Appearance,Urine Cloudy (Clear); Bacteria,Urine Occasional /hpf; Bilirubin,Urine Negative (Negative); Blood,Urine Trace (Negative); Budding Yeast,Urine Occasional /hpf; Color,Urine Colorless; Glucose,Urine (UA) Negative (Negative); Ketones,Urine Negative (Negative); Leukocyte Esterase,Urine Small (Negative); Nitrite,Urine Negative (Negative); PH, Urine 6.5 (5.0-8.0); Protein,Urine Negative (Negative); RBC,Urine 1 /hpf (0-5); Specific Gravity,Urine 1.003 (1.001-1.035); Squamous Epithelial Cell,Urine 4 /hpf (0-4); Urobilinogen,Urine <2.0 mg/dL (<2.0); WBC,Urine 2 /hpf (0-5)
[2021-07-21 11:48] VITALS: BP 105/65; PULSE 84; RESP 18
--- NOTE | 2021-07-24 07:28 | P.MSEPDOC ---
Presenting Problems - Arrival Data Date of Arrival on Unit: 07/21/21 Time of Arrival on Unit: 10:45 Mode of Transport: Ambulatory - Complaint OB-Reason for Admission/Chief Complaint: Pain Comment: pt presented to triage with c/o abd pain that feels like constant cramping Medical History - Information : 9 Para: 4 Term: 4 : 0 Abortions: Spontaneous or Elective: 4 Number of Living Children: 4 - Gestational Age Gestational Age by COREY (wks/days): 27 Weeks and 0 Days Review of Systems - Review of Systems Constitutional: No problems Breast: No problems ENT: No problems Cardiovascular: No problems Respiratory: No problems Gastrointestinal: No problems Genitourinary: No problems Musculoskeletal: No problems Neurological: No problems Skin: No problems Vital Signs - Pulse Right Brachial Pulse Rate: 84 Pulse Assessment Method: Automatic Cuff - Respirations Respiratory Rate: 18 Oxygen Delivery Method: Room Air - Blood Pressure Right Arm Blood Pressure: 105/65 Blood Pressure Mean: 78 Blood Pressure Source: Automatic Cuff Medical Screen Scoring - Cervical Exam Dilation (cm): 0 Membranes: Intact - Assessment - Baby A Baseline FHR: 135 Heart Rate - NICHD Category: Category I (Normal) Physician Notification - Physician Notified Physician Notified Date: 07/21/21 Physician Notified Time: 11:34 Physician: Ashley Camargo New Order Received: Yes - Notification Comment Comment: Category I heart tones, rare contractions, cervical exam, closed/thick/high, ua results given, discharge orders received, pt to follow up on Aug 14 at next scheduled appt Maternal Triage Index - Maternal Triage Index Presenting for scheduled procedure w/no complaint: No - Stat/Priority 1 Stat Priority 1: No - Urgent/Priority 2 Urgent Priority 2: No - Prompt/Priority 3 Prompt Priority 3: Yes Criteria Met for Priority 3: pt presents to triage for abd pain that remains constant that feels like cramping Disposition - Disposition OB Disposition: Triage, Discharge to home, Written follow up instructions reviewed Discharge Date: 07/21/21 Discharge Time: 11:40 I agree with the RN Medical Screening Exam: Yes Case reviewed; plan agreed upon as documented in EMR&OBIX.: Yes Diagnosis: CRAMP AND SPASM
== END 2021-07-21 11:40 | disposition home or self-care (01) ==
LOC: FBPOP 10:45
PROVIDERS: ATTEND Obstetrics & Gynecology
DX: O26.892 Other specified pregnancy related conditions, second trimester (principal); R25.2 Cramp and spasm; O99.332 Smoking (tobacco) complicating pregnancy, second trimester; F17.200 Nicotine dependence, unspecified, uncomplicated; Z3A.27 27 weeks gestation of pregnancy; Z91.030 Bee allergy status; Z88.8 Allergy status to other drugs, medicaments and biological substances
CPT/HCPCS: 81001; G0463; 99213

== ENCOUNTER 2021-08-20 21:35 | Outpatient (CLI) | payer OTHER ==
[2021-08-20 22:43] LABS: Appearance,Urine Clear (Clear); Bilirubin,Urine Negative (Negative); Blood,Urine Negative (Negative); Color,Urine Yellow; Glucose,Urine (UA) Negative (Negative); Ketones,Urine Negative (Negative); Leukocyte Esterase,Urine Negative (Negative); Nitrite,Urine Negative (Negative); PH, Urine 6.5 (5.0-8.0); Protein,Urine Trace (Negative); Urobilinogen,Urine <2.0 mg/dL (<2.0)
[2021-08-21] MEDS ORDERED: METOCLOPRAMIDE 5 MG/ML 2 ML VIAL IVP STA (00:34)
[2021-08-21] MEDS: LACTATED RINGERS 1,000 ML IV SCH ×2 (00:52→00:53)
[2021-08-21 03:05] VITALS: BP 135/75; PULSE 100; RESP 17; TEMP 97.1
--- NOTE | 2021-08-22 08:31 | P.MSEPDOC ---
Presenting Problems - Arrival Data Date of Arrival on Unit: 08/20/21 Time of Arrival on Unit: 21:35 Mode of Transport: Wheelchair - Complaint OB-Reason for Admission/Chief Complaint: Possible Onset of Labor Comment: Patient presents to triage with complaints of contractions that are every 5. minutes apart. Medical History - Information : 9 Para: 4 Term: 4 : 0 Abortions: Spontaneous or Elective: 4 Number of Living Children: 4 - Gestational Age Gestational Age by COREY (wks/days): 31 Weeks and 3 Days - History Complications: Smoker, Hx. Substance Abuse Sexually Transmitted Diseases: HSV Comment: Patient smokes half pack of cigarettes and uses marijuana daily. Patient has hx of HSV, no active lesions at this time. Review of Systems - Review of Systems Constitutional: No problems Breast: No problems ENT: No problems Cardiovascular: No problems Respiratory: No problems Gastrointestinal: No problems Genitourinary: No problems Musculoskeletal: No problems Neurological: No problems Skin: No problems Vital Signs - Temperature Temperature: 97.1 F Temperature Source: Temporal Artery Scan - Pulse Pulse Oximetery Pulse Rate: 100 Pulse Assessment Method: Pulse Oximetry - Respirations Respiratory Rate: 17 Oxygen Delivery Method: Room Air O2 Sat by Pulse Oximetry: 100 - Blood Pressure Right Arm Blood Pressure: 135/75 Blood Pressure Mean: 95 Blood Pressure Source: Automatic Cuff Medical Screen Scoring - Cervical Exam Dilation (cm): 2 Effacement (%): 50 Station: -2 Membranes: Intact - Uterine Contractions Frequency From (mins): 2 Frequency To (mins): 7 Duration From (seconds): 70 Duration To (seconds): 90 Intensity: Moderate Resting: Soft to palpation - Assessment - Baby A Baseline FHR: 135 Heart Rate - NICHD Category: Category I (Normal) NST: Reactive Physician Notification - Physician Notified Physician Notified Date: 08/21/21 Physician Notified Time: 00:30 Physician: Juan Pablo Cornelius Order Received: Yes - Notification Comment Comment: Spoke with Dr. Cornelius regarding patient's c/o contractions 5 minutes apart,. heart tones, cervical exam and history of herpes with one sore spot above vagina from itching d/t yeast infection. Orders from Dr. Cornelius include sending patient's urine, FFN, starting an IV for fluids and rechecking patient's cervix in one hour. Updated Dr. Cornelius on urinalysis results, FFN results, no cervical. change with cervical exam and irregular contractions with contraction pain 4-5 out of 10. Orders included another cervical exam in an hour and administer IV fluids. If patient had not made any cervical change, discharge patient home. Orders to administer IVP reglan and send patient home with discharge instructions. Maternal Triage Index - Maternal Triage Index Presenting for scheduled procedure w/no complaint: No - Stat/Priority 1 Stat Priority 1: No - Urgent/Priority 2 Urgent Priority 2: Yes Provider Notified: Juan Pablo Cornelius Provider Notified Time: 22:10 Criteria Met for Priority 2: < 34 wks c/o of, or detectable, uterine ctx Disposition - Disposition OB Disposition: Discharge to home, Written follow up instructions reviewed Discharge Date: 08/21/21 Discharge Time: 00:55 I agree with the RN Medical Screening Exam: Yes Case reviewed; plan agreed upon as documented in EMR&OBIX.: Yes Diagnosis: FALSE LABOR BEFORE 37 COMPLETED WEEKS OF GEST, THIRD TRI
== END 2021-08-21 00:55 | disposition home or self-care (01) ==
LOC: FBPOP 21:35
PROVIDERS: ATTEND Obstetrics & Gynecology
DX: O47.03 False labor before 37 completed weeks of gestation, third trimester (principal); O99.323 Drug use complicating pregnancy, third trimester; O99.333 Smoking (tobacco) complicating pregnancy, third trimester; Z3A.31 31 weeks gestation of pregnancy; F17.210 Nicotine dependence, cigarettes, uncomplicated; F12.90 Cannabis use, unspecified, uncomplicated; Z91.030 Bee allergy status; Z88.8 Allergy status to other drugs, medicaments and biological substances
CPT/HCPCS: 59025; 96361; 96374; 82731; 81003; G0463; J2765; 99214

== ENCOUNTER 2021-08-31 17:17 | Outpatient (CLI) | payer OTHER ==
[2021-08-31 19:57] VITALS: BP 120/73; PULSE 83; RESP 16; TEMP 97.4
--- NOTE | 2021-09-12 07:22 | P.MSEPDOC ---
Presenting Problems - Arrival Data Date of Arrival on Unit: 08/31/21 Time of Arrival on Unit: 17:17 Mode of Transport: Ambulatory - Complaint OB-Reason for Admission/Chief Complaint: Possible Onset of Labor Comment: pt presents from home after calling 's office several times today for. complaints of pressure in lower back and in lower front. after out of shower states the contractions started and have continued more than 10 min apart. 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 day 3 or 4 of medicine for HS Medical History - Information : 9 Para: 4 - Gestational Age Gestational Age by COREY (wks/days): 32 Weeks and 6 Days - History Sexually Transmitted Diseases: HSV Comment: current hsv outbreakl Review of Systems - Review of Systems Constitutional: No problems Breast: No problems ENT: No problems Cardiovascular: No problems Respiratory: No problems Gastrointestinal: No problems Genitourinary: No problems Musculoskeletal: No problems Neurological: No problems Skin: No problems Vital Signs - Temperature Temperature: 97.4 F Temperature Source: Temporal Artery Scan - Pulse Right Pulse Rate: 83 Pulse Assessment Method: Pulse Oximetry - Respirations Respiratory Rate: 16 Oxygen Delivery Method: Room Air O2 Sat by Pulse Oximetry: 97 - Blood Pressure Right Arm Blood Pressure: 120/73 Blood Pressure Mean: 88 Blood Pressure Source: Automatic Cuff Medical Screen Scoring - Cervical Exam Dilation (cm): 0 Effacement (%): 40 Membranes: Intact - Uterine Contractions Frequency From (mins): 4 Frequency To (mins): 8 Duration From (seconds): 40 Duration To (seconds): 70 Intensity: Mild Resting: Soft to palpation - Assessment - Baby A Baseline FHR: 135 Heart Rate - NICHD Category: Category I (Normal) NST: Reactive Physician Notification - Physician Notified Physician Notified Date: 08/31/21 Physician Notified Time: 17:20 Physician: Dr Camargo New Order Received: Yes - Notification Comment Comment: Dr Camargo in department. aware pt's reason for visit. has viewed EFM from desk. updated vitals, reactive NST, cervix closed internal os, long despite coontractions pt is having. noted pt also elizabeth during her visit 08/20 with no cervical change noted. order for discharge received with pt to keep scheduled appt for next friday Maternal Triage Index - Stat/Priority 1 Stat Priority 1: No - Urgent/Priority 2 Urgent Priority 2: No - Prompt/Priority 3 Prompt Priority 3: Yes Criteria Met for Priority 3: 32 week pos HSV1 outbreak concerns of contractions but cervix closed - Non-Urgent/Priority 4 Non-Urgent Priority 4: No Disposition - Disposition OB Disposition: Discharge to home Discharge Date: 08/31/21 Discharge Time: 18:35 I agree with the RN Medical Screening Exam: Yes Case reviewed; plan agreed upon as documented in EMR&OBIX.: Yes Diagnosis: PRIMARY INADEQUATE CONTRACTIONS
== END 2021-08-31 18:35 | disposition home or self-care (01) ==
LOC: FBPOP 17:17
PROVIDERS: ATTEND Obstetrics & Gynecology
DX: O62.0 Primary inadequate contractions (principal); O98.313 Other infections with a predominantly sexual mode of transmission complicating pregnancy, third trimester; B00.9 Herpesviral infection, unspecified; Z3A.32 32 weeks gestation of pregnancy; Z88.0 Allergy status to penicillin; Z88.8 Allergy status to other drugs, medicaments and biological substances
CPT/HCPCS: 59025; G0463; 99213

== ENCOUNTER 2021-09-20 20:19 | Outpatient (CLI) | payer OTHER ==
[2021-09-20 22:27] VITALS: BP 126/72; PULSE 108; RESP 17; TEMP 97.2
--- NOTE | 2021-09-21 08:02 | P.MSEPDOC ---
Presenting Problems - Arrival Data Date of Arrival on Unit: 09/20/21 Time of Arrival on Unit: 20:19 Mode of Transport: Ambulatory - Complaint OB-Reason for Admission/Chief Complaint: Possible Onset of Labor, Rule Out SROM Comment: Patient presents to triage with complaints of contractions that are every 5. minutes apart and leaking fluid Medical History - Information : 9 Para: 4 Term: 4 : 0 Abortions: Spontaneous or Elective: 4 Number of Living Children: 4 - Gestational Age Gestational Age by COREY (wks/days): 35 Weeks and 5 Days - History Complications: Smoker Sexually Transmitted Diseases: HSV Comment: Patient states she smokes 1 pack of cigarettes daily and is taking acyclivor for HSV. Review of Systems - Review of Systems Constitutional: No problems Breast: No problems ENT: No problems Cardiovascular: No problems Respiratory: No problems Gastrointestinal: No problems Genitourinary: No problems Musculoskeletal: No problems Neurological: No problems Skin: No problems Vital Signs - Temperature Temperature: 97.2 F Temperature Source: Temporal Artery Scan - Pulse Pulse Oximetery Pulse Rate: 108 Pulse Assessment Method: Pulse Oximetry - Respirations Respiratory Rate: 17 Oxygen Delivery Method: Room Air O2 Sat by Pulse Oximetry: 100 - Blood Pressure Right Arm Blood Pressure: 126/72 Blood Pressure Mean: 90 Blood Pressure Source: Automatic Cuff Medical Screen Scoring - Cervical Exam Dilation (cm): 1 Effacement (%): 70 Station: -3 Membranes: Intact - Uterine Contractions Intensity: Mild Resting: Soft to palpation - Assessment - Baby A Baseline FHR: 140 Heart Rate - NICHD Category: Category I (Normal) NST: Reactive Physician Notification - Physician Notified Physician Notified Date: 09/20/21 Physician Notified Time: 21:33 Physician: Daniela Montalvo Order Received: Yes - Notification Comment Comment: Spoke with Dr. Montalvo regarding triage patient c/o contractions at home that were 20 minutes apart for 2 hours that then turned into 5 minutes apart for 1 hour and had some leaking of fluid at home, which caused the patient to come into triage. Reported on negative amnisure, reactive NST, category 1 FHT, irregular contractions, and cervical exam of 1/70/-3 with no change after one hour. Per Dr. Montalvo, send patient home with discharge instructions. Maternal Triage Index - Maternal Triage Index Presenting for scheduled procedure w/no complaint: No - Stat/Priority 1 Stat Priority 1: No - Urgent/Priority 2 Urgent Priority 2: No - Prompt/Priority 3 Prompt Priority 3: Yes Criteria Met for Priority 3: c/o early labor signs and/or c/o SROM/leaking 35-36 6/7 weeks Disposition - Disposition OB Disposition: Discharge to home, Written follow up instructions reviewed Discharge Date: 09/20/21 Discharge Time: 21:43 I agree with the RN Medical Screening Exam: Yes Case reviewed; plan agreed upon as documented in EMR&OBIX.: Yes Diagnosis: FALSE LABOR BEFORE 37 COMPLETED WEEKS OF GEST, THIRD TRI
== END 2021-09-20 21:43 | disposition home or self-care (01) ==
LOC: FBPOP 20:19
PROVIDERS: ATTEND Obstetrics & Gynecology
DX: O47.03 False labor before 37 completed weeks of gestation, third trimester (principal); O99.333 Smoking (tobacco) complicating pregnancy, third trimester; F17.210 Nicotine dependence, cigarettes, uncomplicated; Z3A.35 35 weeks gestation of pregnancy; Z91.030 Bee allergy status; Z88.8 Allergy status to other drugs, medicaments and biological substances
CPT/HCPCS: 59025; 84112; G0463; 99213

== ENCOUNTER 2021-10-06 21:24 | Outpatient (CLI) | payer OTHER ==
[2021-10-06 23:01] VITALS: BP 127/82; PULSE 107; RESP 17; TEMP 97.3
--- NOTE | 2021-10-07 08:01 | P.MSEPDOC ---
Presenting Problems - Arrival Data Date of Arrival on Unit: 10/06/21 Time of Arrival on Unit: 21:24 Mode of Transport: Ambulatory - Complaint OB-Reason for Admission/Chief Complaint: Possible Onset of Labor Comment: Patient presents to triage with c/o contractions that are every 5 to 10 minutes. apart since 1429. Medical History - Information : 9 Para: 4 Term: 4 : 0 Abortions: Spontaneous or Elective: 4 Number of Living Children: 4 - Gestational Age Gestational Age by COREY (wks/days): 38 Weeks and 0 Days - History Complications: Smoker Sexually Transmitted Diseases: HSV Review of Systems - Review of Systems Constitutional: No problems Breast: No problems ENT: No problems Cardiovascular: No problems Respiratory: No problems Gastrointestinal: No problems Genitourinary: No problems Musculoskeletal: No problems Neurological: No problems Skin: No problems Vital Signs - Temperature Temperature: 97.3 F Temperature Source: Temporal Artery Scan - Pulse Pulse Oximetery Pulse Rate: 107 Pulse Assessment Method: Pulse Oximetry - Respirations Respiratory Rate: 17 Oxygen Delivery Method: Room Air O2 Sat by Pulse Oximetry: 99 - Blood Pressure Right Arm Blood Pressure: 127/82 Blood Pressure Mean: 97 Blood Pressure Source: Automatic Cuff Medical Screen Scoring - Cervical Exam Dilation (cm): 1 Effacement (%): 70 Station: -3 Membranes: Intact - Uterine Contractions Frequency From (mins): 12 Frequency To (mins): 20 Duration From (seconds): 90 Duration To (seconds): 110 Intensity: Mild Resting: Soft to palpation - Assessment - Baby A Baseline FHR: 125 Heart Rate - NICHD Category: Category II (Indeterminate) NST: Reactive Physician Notification - Physician Notified Physician Notified Date: 10/06/21 Physician Notified Time: 22:42 Physician: Serg Alvarado New Order Received: Yes - Notification Comment Comment: Spoke with Dr. Alvarado regarding patient c/o contractions every 5 to 10 minutes since 1429, maternal vital signs, FHT, reactive NST, cervical exam of 1/70/-3 with no change after one hour and four contractions within one hour. Orders to send patient home with discharge instructions. Maternal Triage Index - Maternal Triage Index Presenting for scheduled procedure w/no complaint: No - Stat/Priority 1 Stat Priority 1: No - Urgent/Priority 2 Urgent Priority 2: No - Prompt/Priority 3 Prompt Priority 3: No - Non-Urgent/Priority 4 Non-Urgent Priority 4: Yes Criteria Met for Priority 4: Patient presents to triage with c/o contractions that are every 5 to 10 minutes. apart since 1430. Disposition - Disposition OB Disposition: Discharge to home, Written follow up instructions reviewed Discharge Date: 10/06/21 Discharge Time: 22:50 I agree with the RN Medical Screening Exam: Yes Case reviewed; plan agreed upon as documented in EMR&OBIX.: Yes Diagnosis: FALSE LABOR AT OR AFTER 37 COMPLETED WEEKS OF GESTATION
== END 2021-10-06 22:50 | disposition home or self-care (01) ==
LOC: FBPOP 21:24
PROVIDERS: ATTEND Obstetrics & Gynecology
DX: O47.1 False labor at or after 37 completed weeks of gestation (principal); O99.333 Smoking (tobacco) complicating pregnancy, third trimester; F17.200 Nicotine dependence, unspecified, uncomplicated; Z3A.38 38 weeks gestation of pregnancy; Z91.030 Bee allergy status; Z88.8 Allergy status to other drugs, medicaments and biological substances
CPT/HCPCS: 59025; G0463; 99213

== ENCOUNTER 2021-10-11 07:09 | Inpatient (IN) | payer OTHER ==
[2021-10-11] MEDS ORDERED: OXYTOCIN 10 UNIT/ML 1 ML VIAL IM PRN (07:42)
[2021-10-11] MEDS ORDERED: METHYLERGONOVINE 0.2 MG/ML 1 ML AMP IM PRN (07:42)
[2021-10-11] MEDS ORDERED: TERBUTALINE 1 MG/ML VIAL SQ PRN (07:42)
[2021-10-11] MEDS ORDERED: LIDOCAINE 1% (PF) 10 MG/ML (30 ML SDV) SQ PRN (07:42)
[2021-10-11] MEDS ORDERED: CARBOPROST TROMETHAMINE 250 MCG/ML 1 ML AMP IM PRN (07:42)
[2021-10-11] MEDS ORDERED: OXYTOCIN 30 UNITS/500 ML NS 30 UNIT in SALINE 1 500ML.BAG IV SCH ×2 (07:45→11:00)
[2021-10-11] MEDS: LACTATED RINGERS 1,000 ML IV SCH ×2 (07:58→09:02)
[2021-10-11 08:07] LABS: Basophils # (A) 0.1 k/uL (0-0.2); Basophils % (A) 0 %; Eosinophils # (A) 0.2 k/uL (0-0.7); Eosinophils % (A) 1 %; HCT 37.2 % (34.0-46.0); HGB 12.9 gm/dL (11.4-16.0); Lymphocytes # (A) 1.8 k/uL (1.0-4.8); Lymphocytes % (A) 14 %; MCH 32.2 pg (25.0-35.0); MCHC 34.8 g/dL (31.0-37.0); MCV 92.5 fL (80.0-100.0); Mean Platelet Volume 10.5; Monocytes # (A) 0.8 k/uL (0-1.0); Monocytes % (A) 6 %; Neutrophils % (A) 77 %; Platelet Count 198 k/uL (150-450); Poikilocytosis Slight; RBC 4.02 m/uL (3.80-5.40); RDW 13.9 % (11.5-15.5); WBC 13.1 k/uL (3.8-10.6)
[2021-10-11] MEDS ORDERED: SIMETHICONE 80 MG CHEWABLE PO PRN (10:57)
[2021-10-11] MEDS ORDERED: LANOLIN CREAM 5 GM TUBE TOPICAL PRN (10:57)
[2021-10-11] MEDS ORDERED: diphenhydrAMINE 25 MG CAP PO PRN (10:57)
[2021-10-11] MEDS ORDERED: diphenhydrAMINE 50 MG CAP PO PRN (10:57)
[2021-10-11] MEDS ORDERED: diphenhydrAMINE 50 MG/ML 1 ML VIAL IVP PRN ×2 (10:57)
[2021-10-11] MEDS ORDERED: BENZOCAINE/MENTHOL SPRAY 1 GM/SPRAY AEROSOL TOPICAL PRN (10:57)
[2021-10-11] MEDS ORDERED: ZOLPIDEM 5 MG TAB PO PRN (10:57)
[2021-10-11] MEDS ORDERED: HYDROCORTISONE 2.5% RECTAL CREAM 30 GM TUBE RECTAL PRN (10:57)
--- NOTE | 2021-10-11 11:01 | P.HPOB ---
History of Present Illness H&P Date: 10/11/21 Chief Complaint: labor 30 year old presents at 38 weeks 5 days in labor. Her cervix was 4 cm dilated, 80% effaced, -2 station. She is elizabeth every 2-5 minutes. heart tones 135 moderate variability and reactive. Review of Systems All systems: negative Constitutional: Denies chills, Denies fever Eyes: denies blurred vision, denies pain Ears, nose, mouth and throat: Denies headache, Denies sore throat Cardiovascular: Denies chest pain, Denies shortness of breath Respiratory: Denies cough Gastrointestinal: Denies abdominal pain, Denies diarrhea, Denies nausea, Denies vomiting Genitourinary: Denies dysuria, Denies hematuria Musculoskeletal: Denies myalgias Integumentary: Denies pruritus, Denies rash Neurological: Denies numbness, Denies weakness Psychiatric: Denies anxiety, Denies depression Endocrine: Denies fatigue, Denies weight change 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. OB history: She has had 2 SAB, 1 ectopic and 4 vaginal deliveries. History of Any Multi-Drug Resistant Organisms: None Reported Additional Past Surgical History / Comment(s): D&C, EXPLORATORY LAP Past Anesthesia/Blood Transfusion Reactions: No Reported Reaction Past Psychological History: Anxiety, Depression, PTSD Smoking Status: Current every day smoker Past Alcohol Use History: None Reported Additional Past Alcohol Use History / Comment(s): 1/2 pack per day Past Drug Use History: Marijuana Additional Drug Use History / Comment(s): medical marijuana for ptsd. - Past Family History Sister(s) Family Medical History: Asthma Additional Family Medical History / Comment(s): aunt- thyroid disease Mother History Unknown: Yes Family Medical History: No Reported History Father History Unknown: Yes Family Medical History: No Reported History Medications and Allergies Home Medications Medication Instructions Recorded Confirmed Type RX: Acyclovir 400 mg PO TID 09/20/21 10/11/21 History RX: Omeprazole 20 tab PO DAILY 09/20/21 10/11/21 History Allergies Allergy/AdvReac Type Severity Reaction Status Date / Time phenazopyridine Allergy Rash/Hives Verified 10/11/21 07:24 [From Pyridium] venom-honey bee Allergy Anaphylaxis Verified 10/11/21 07:24 Exam Osteopathic Statement: *. No significant issues noted on an osteopathic structural exam other than those noted in the History and Physical/Consult. Vital Signs Temp Pulse Resp BP Pulse Ox 10/11/21 07:51 96.8 F L 84 16 132/85 100 10/11/21 07:19 96.8 F L 84 16 132/85 100 Intake and Output 10/10/21 10/11/21 10/11/21 22:59 06:59 14:59 Other: Weight 81.193 kg Heart: Regular rate and rhythm Lungs: Clear to auscultation bilaterally Abdomen: Soft, nontender Extremities: Negative Homans sign Results Result Diagrams: 10/11/21 07:50 Abnormal Lab Results - Last 24 Hours (Table) 10/11/21 Range/Units 07:50 WBC 13.1 H (3.8-10.6) k/uL Neutrophils # 10.0 H (1.3-7.7) k/uL Assessment and Plan (1) Normal labor Current Visit: No Status: Resolved Code(s): O80 - ENCOUNTER FOR FULL-TERM UNCOMPLICATED DELIVERY; Z37.9 - OUTCOME OF DELIVERY, UNSPECIFIED SNOMED Code(s): 33551613 Plan: 1. Admit to family place 2. Epidural for pain management 3. Anticipate normal vaginal delivery
--- NOTE | 2021-10-11 11:03 | P.PROBDLV ---
Vaginal Delivery Note - . Vaginal Delivery Note: 30 year old presents at 38 weeks 5 days in labor. Her cervix was 4 cm dilated, 80% effaced, -2 station. She is elizabeth every 2-5 minutes. heart tones 135 moderate variability and reactive. She did get an epidural and was comfortable. Amniotomy performed at 10:25 AM and meconium-stained fluid noted. At this time she was 9 cm. Her cervix was completely dilated. She pushed with 1 contraction and delivered a viable female infant over intact perineum under epidural anesthesia at 10:49 AM. Head delivered OA, nuchal cord 2 easily reduced, anterior shoulder delivered gentle downward guidance followed by posterior shoulder and rest of body. Nose and mouth bulb suctioned, cord clamped and cut, handed off to waiting stone fabricator. Apgars 9, 9, weight 7 pounds. Vagina, cervix, perineum was prepped. No lacerations noted. Estimated blood loss 200 mL. Mother and baby in stable condition.
[2021-10-11] MEDS ORDERED: ROPIVACAINE 100 MG, fentaNYL (PF). 200 MCG in SODIUM CHLORIDE 0.9% 76 ML EPIDURAL ONE (13:36)
[2021-10-11] MEDS: PANTOPRAZOLE 40 MG TABLET PO SCH (15:41)
[2021-10-11] MEDS: IBUPROFEN 600 MG TAB PO PRN (18:35)
[2021-10-12] MEDS: IBUPROFEN 600 MG TAB PO PRN ×3 (00:08→19:44)
[2021-10-12] MEDS: SENNOSIDES-DOCUSATE SODIUM 1 EACH TAB PO SCH ×3 (00:13→19:44)
[2021-10-12] MEDS: ACETAMINOPHEN TAB 325 MG TAB PO PRN ×2 (03:11→17:34)
[2021-10-12] MEDS: PANTOPRAZOLE 40 MG TABLET PO SCH (07:58)
[2021-10-12 08:09] LABS: Basophils % (A) 0 %; Eosinophils # (A) 0.1 k/uL (0-0.7); Eosinophils % (A) 1 %; HCT 32.2 % (34.0-46.0); HGB 10.7 gm/dL (11.4-16.0); Lymphocytes # (A) 1.9 k/uL (1.0-4.8); Lymphocytes % (A) 19 %; MCHC 33.4 g/dL (31.0-37.0); MCV 95.8 fL (80.0-100.0); Mean Platelet Volume 10.6; Monocytes # (A) 0.7 k/uL (0-1.0); Monocytes % (A) 6 %; Neutrophils # (A) 7.4 k/uL (1.3-7.7); Neutrophils % (A) 71 %; Platelet Count 160 k/uL (150-450); Poikilocytosis Slight; RBC 3.36 m/uL (3.80-5.40); RDW 13.8 % (11.5-15.5); WBC 10.5 k/uL (3.8-10.6)
--- NOTE | 2021-10-12 08:41 | P.DS ---
Providers Date of admission: 10/11/21 07:40 Expected date of discharge: 10/12/21 Attending physician: Ashley Camargo Primary care physician: Stated None - Discharge Diagnosis(es) (1) Normal vaginal delivery Current Visit: No Status: Acute Hospital Course: Patient presented in active labor. She underwent a normal vaginal delivery. course on, K. She denies nausea, vomiting, chest pain, shortness of breath or any calf pain. Patient will be discharged home day #1 in stable condition to follow-up with me in 6 weeks. Plan - Discharge Summary New Discharge Prescriptions: New Ibuprofen [Motrin] 600 mg PO Q6HR PRN #30 tab PRN Reason: Mild Pain Or Fever >= 100.5 No Action Omeprazole 20 tab PO DAILY Acyclovir 400 mg PO TID Discharge Medication List Acyclovir 400 mg PO TID 09/20/21 [History] Omeprazole 20 tab PO DAILY 09/20/21 [History] Ibuprofen [Motrin] 600 mg PO Q6HR PRN #30 tab 10/12/21 [Rx] Follow up Appointment(s)/Referral(s): Ashley Camargo DO [Doctor of Osteopathic Medicine] - 11/22/21 10:45 am Discharge Disposition: HOME SELF-CARE
--- NOTE | 2021-10-12 12:40 | P.MSEPDOC ---
Presenting Problems - Arrival Data Date of Arrival on Unit: 10/11/21 Time of Arrival on Unit: 07:42 Mode of Transport: Wheelchair - Complaint OB-Reason for Admission/Chief Complaint: Possible Onset of Labor Medical History - Information : 8 Para: 4 Term: 4 : 0 Abortions: Spontaneous or Elective: 3 Number of Living Children: 4 - Gestational Age Gestational Age by COREY (wks/days): 38 Weeks and 5 Days - History Complications: Smoker Review of Systems - Review of Systems Constitutional: No problems Breast: No problems ENT: No problems Cardiovascular: No problems Respiratory: No problems Gastrointestinal: No problems Genitourinary: No problems Musculoskeletal: No problems Neurological: No problems Skin: No problems Vital Signs - Temperature Temperature: 96.9 F Temperature Source: Oral - Pulse Right Sitting Pulse Rate: 69 Pulse Assessment Method: Pulse Oximetry - Respirations Respiratory Rate: 16 Oxygen Delivery Method: Room Air Oxygen Flow Rate: 0 O2 Sat by Pulse Oximetry: 99 - Blood Pressure Right Arm Blood Pressure: 121/81 Blood Pressure Mean: 94 Blood Pressure Source: Automatic Cuff Medical Screen Scoring - Cervical Exam Dilation (cm): 4 Effacement (%): 80 Station: -2 Membranes: Intact - Uterine Contractions Frequency From (mins): 2 Frequency To (mins): 5 Duration From (seconds): 60 Duration To (seconds): 80 Intensity: Moderate Resting: Soft to palpation - Assessment - Baby A Baseline FHR: 125 Heart Rate - NICHD Category: Category I (Normal) NST: Reactive Physician Notification - Physician Notified Physician Notified Date: 10/11/21 Physician Notified Time: 07:42 Physician: Serg Alvarado New Order Received: Yes (admit for labor) Maternal Triage Index - Urgent/Priority 2 Urgent Priority 2: Yes Provider Notified: Serg Alvarado Provider Notified Time: 07:42 Criteria Met for Priority 2: contractions every 2-3 minutes, vag exam 4cm/80%, pain 10 on scale, pt breathing through contractions Disposition - Disposition OB Disposition: Admit, LDRP Suite I agree with the RN Medical Screening Exam: Yes Case reviewed; plan agreed upon as documented in EMR&OBIX.: Yes Diagnosis: ENCOUNTER FOR FULL-TERM UNCOMPLICATED DELIVERY
[2021-10-12] MEDS ORDERED: NICOTINE 21MG/24HR PATCH TRANSDERM STA (20:03)
[2021-10-13] MEDS: ACETAMINOPHEN TAB 325 MG TAB PO PRN (00:26)
[2021-10-13] MEDS: SENNOSIDES-DOCUSATE SODIUM 1 EACH TAB PO SCH (07:40)
[2021-10-13] MEDS: PANTOPRAZOLE 40 MG TABLET PO SCH (07:40)
[2021-10-13] MEDS: IBUPROFEN 600 MG TAB PO PRN (07:40)
[2021-10-13 16:10] VITALS: BP 115/72; PULSE 77; RESP 17; TEMP 98.1
== END 2021-10-13 16:11 | disposition home or self-care (01) | DRG 806 ==
LOC: FBPOP 07:09 → 4FBP 07:40
PROVIDERS: ADMIT Obstetrics & Gynecology; ATTEND Obstetrics & Gynecology
PROC: 10E0XZZ Delivery of Products of Conception, External Approach (ICD-10-PCS; principal; 2021-10-11)
PROC: 10907ZC Drainage of Amniotic Fluid, Therapeutic from Products of Conception, Via Natural or Artificial Opening (ICD-10-PCS; 2021-10-11)
PROC: 4A0HXCZ Measurement of Products of Conception, Cardiac Rate, External Approach (ICD-10-PCS; 2021-10-11)
DX: O69.81X0 Labor and delivery complicated by cord around neck, without compression, not applicable or unspecified (principal); O98.32 Other infections with a predominantly sexual mode of transmission complicating childbirth; Z37.0 Single live birth; F17.210 Nicotine dependence, cigarettes, uncomplicated; A60.00 Herpesviral infection of urogenital system, unspecified; K21.9 Gastro-esophageal reflux disease without esophagitis; O99.62 Diseases of the digestive system complicating childbirth; F32.A Depression, unspecified; F43.10 Post-traumatic stress disorder, unspecified; O77.0 Labor and delivery complicated by meconium in amniotic fluid; O99.334 Smoking (tobacco) complicating childbirth; O99.344 Other mental disorders complicating childbirth; Z3A.38 38 weeks gestation of pregnancy; Z87.59 Personal history of other complications of pregnancy, childbirth and the puerperium; Z88.8 Allergy status to other drugs, medicaments and biological substances; Z91.030 Bee allergy status; Z82.5 Family history of asthma and other chronic lower respiratory diseases
CPT/HCPCS: 59025; 85025; 86850; 86900; 86901; 99213

== ENCOUNTER → 2021-12-12 | Outpatient (CLI) | payer OTHER ==
[2021-12-13 01:44] LABS: Basophils # (A) 0.03 X 10*3/uL (0.00-0.10); Basophils % (A) 0.4 %; Eosinophils % (A) 2.7 %; HCT 39.8 % (37.2-46.3); HGB 12.8 g/dL (12.0-15.0); Immature Grans, Automated 0.4 %; Lymphocytes % (A) 28.8 %; MCH 29.5 pg (27.0-32.0); MCHC 32.2 g/dL (32.0-37.0); MCV 91.7 fL (80.0-97.0); Mean Platelet Volume 12.1 fL (9.5-12.2); Monocytes # (A) 0.53 X 10*3/uL (0.20-1.00); Monocytes % (A) 7.3 %; NRBC Per 100 WBC 0 /100 WBCS (0.0-0.0); Neutrophils # (A) 4.41 X 10*3/uL (1.80-7.70); Neutrophils % (A) 60.4 %; Platelet Count 247 X 10*3/uL (140-440); RBC 4.34 X 10*6/uL (4.10-5.20); RDW 13.2 % (11.5-14.5)
== END | disposition home or self-care (01) ==
LOC: LABPAT 15:13
PROVIDERS: ATTEND Obstetrics & Gynecology
DX: Z01.812 Encounter for preprocedural laboratory examination (principal)
CPT/HCPCS: 36415; 85025

== ENCOUNTER → 2021-12-13 | Day surgery (SDC) | payer BC, OTHER ==
[2021-12-11 15:25] VITALS: BMI 31.1
--- NOTE | 2021-12-12 16:33 | P.HPOB ---
History of Present Illness H&P Date: 12/12/21 Chief Complaint: family planning 31 year old presents for laparoscopic tubal ligation. Review of Systems All systems: negative Constitutional: Denies chills, Denies fever Eyes: denies blurred vision, denies pain Ears, nose, mouth and throat: Denies headache, Denies sore throat Cardiovascular: Denies chest pain, Denies shortness of breath Respiratory: Denies cough Gastrointestinal: Denies abdominal pain, Denies diarrhea, Denies nausea, Denies vomiting Genitourinary: Denies dysuria, Denies hematuria Musculoskeletal: Denies myalgias Integumentary: Denies pruritus, Denies rash Neurological: Denies numbness, Denies weakness Psychiatric: Denies anxiety, Denies depression Endocrine: Denies fatigue, Denies weight change 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. OB history: She has had 2 SAB, 1 ectopic and 4 vaginal deliveries. History of Any Multi-Drug Resistant Organisms: None Reported Additional Past Surgical History / Comment(s): D&C, EXPLORATORY LAP, Past Anesthesia/Blood Transfusion Reactions: No Reported Reaction Smoking Status: Current every day smoker - Past Family History Sister(s) Family Medical History: Asthma Additional Family Medical History / Comment(s): aunt- thyroid disease Mother History Unknown: Yes Family Medical History: No Reported History Father History Unknown: Yes Family Medical History: No Reported History Medications and Allergies Home Medications Medication Instructions Recorded Confirmed Type Omeprazole 20 tab PO DAILY 09/20/21 12/11/21 History Allergies Allergy/AdvReac Type Severity Reaction Status Date / Time phenazopyridine Allergy Rash/Hives Verified 12/11/21 15:13 [From Pyridium] venom-honey bee Allergy Anaphylaxis Verified 12/11/21 15:13 Exam Osteopathic Statement: *. No significant issues noted on an osteopathic structural exam other than those noted in the History and Physical/Consult. Heart: Regular rate and rhythm Lungs: Clear to auscultation bilaterally Abdomen: Soft, nontender Extremities: Negative Homans sign Assessment and Plan (1) Family planning Status: Acute Code(s): Z30.09 - ENCOUNTER FOR OTH GENERAL CNSL AND ADVICE ON CONTRACEPTION SNOMED Code(s): 945332125 Plan: 1. laparoscopic tubal ligation
[~2021-12-13] MED LIST changes: +BUPIVACAINE (PF) 0.25% 30 ML VIAL SQ ONE; +CITRIC ACID-SODIUM CITRATE 15 ML CUP PO PRN; +DEXAMETHASONE SOD PHOSPHATE 4 MG/ML 1 ML VIAL IV ONE; +FAMOTIDINE 20 MG/2 ML VIAL IV ONE; +FAMOTIDINE 20 MG/2 ML VIAL IV STA; +GLYCOPYRROLATE 0.2 MG/ML 2 ML VIAL ONE; +HYDROmorphone 0.5 MG/0.5 ML SYRINGE IVP PRN; +KETOROLAC 15 MG/ML 1 ML VIAL IVP ONE; +LACTATED RINGERS 1,000 ML IV SCH; +LIDOCAINE 2% INJ 20 MG/ML (2 ML VIAL) ONE; -METHOTREXATE SODIUM (PF) 25 MG/ML 2 ML VIAL IM NR; +MIDAZOLAM (PF) 5 MG/ML 2 ML VIAL IV STA; +NEOSTIGMINE 1 MG/ML 10 ML VIAL ONE; +ONDANSETRON 4 MG/2 ML VIAL IVP ONE; +PROPOFOL 10 MG/ML 20 ML VIAL IV ONE; +Pre Op ABX Message 1 EACH MISC MISCELLANE ONE; +ROCURONIUM 10 MG/ML (5 ML VIAL) IV ONE; +SODIUM CHLORIDE 0.9% 1,000 ML IV ONE; +SUCCINYLCHOLINE CHLORIDE 100 MG/5 ML SYR IV ONE; +fentaNYL (PF) 50 MCG/ML 2 ML AMP ONE
[2021-12-13 08:15] VITALS: RESP 16; TEMP 97.6
--- NOTE | 2021-12-13 09:24 | P.OP ---
Date of Procedure: 12/13/21 Preoperative Diagnosis: 1. family planning Postoperative Diagnosis: 1. family planning Procedure(s) Performed: laparoscopic tubal ligation Anesthesia: KIRILL Surgeon: Ashley Camargo Estimated Blood Loss (ml): 2 IV fluids (ml): 500 Urine output (ml): 75 Pathology: none sent Condition: stable Disposition: PACU Description of Procedure: Patient was taken to the operating room where general anesthesia was obtained without difficulty. She was prepped and draped in normal sterile fashion in the dorsal lithotomy position, legs placed in the Prosper stirrups. Bladder drained of all urine. Beaumont speculum placed in the vagina and the anterior lip the cervix was grasped with single-tooth tenaculum. The uterus is sounded to 10 cm and the kroner manipulator was placed. Attention was then turned to the abdomen and gloves were changed. A 10 mm infraumbilical incision was made the scalpel and 10 mm optical trocar was placed under direct visualization. A 5 mm suprapubic Incision was made and a 5 mm optical trocar was placed under direct visualization. Survey of the pelvis revealed normal uterus tubes and ovaries. The left fallopian tube was grasped with a Kleppinger and fulgurated 2-3 cm on this side in the ampullar portion. The right fallopian tube was grasped with a Kleppinger and fulgurated 2-3 cm in the ampullar portion. All instruments were then removed from the abdomen and vagina. The 10 mm infraumbilical incision was closed with 0 Vicryl and the fascial layer and then 4-0 Vicryl in a subcuticular fashion. The 5 mm incision was closed with 4-0 Vicryl in a subcuticular fashion. Patient tolerated procedure well, sponge and instrument counts correct 2 and she was taken to recovery room in stable condition.
[2021-12-13 10:11] VITALS: BP 108/62; PULSE 53
== END | disposition home or self-care (01) ==
LOC: OR 07:57
PROVIDERS: ATTEND Obstetrics & Gynecology
DX: Z30.2 Encounter for sterilization (principal); F17.200 Nicotine dependence, unspecified, uncomplicated; K21.9 Gastro-esophageal reflux disease without esophagitis; Z83.49 Family history of other endocrine, nutritional and metabolic diseases; Z91.030 Bee allergy status
CPT/HCPCS: 58670; 81025; J1100; J2710; J2405; J2250; J3010; J1885; J0330; J2704; J1170; J2001

== ENCOUNTER 2023-08-25 01:33 | Emergency (ER) | payer OTHER ==
[2023-08-25 01:55] VITALS: TEMP 98
[2023-08-25] MEDS ORDERED: MORPHINE SULFATE 4 MG/ML SYRINGE IVP STA (02:55)
--- NOTE | 2023-08-25 03:04 | US ---
EXAM: US Pelvis Transvaginal CLINICAL HISTORY: ITS.REASON US Reason: l groin pain after sex TECHNIQUE: Real-time transvaginal pelvic ultrasound with image documentation. Transvaginal imaging was used for better evaluation of the endometrium and adnexa. COMPARISON: No relevant prior studies available. FINDINGS: Uterus/cervix: No myometrial mass. Normal endometrial thickness. Right ovary: Unremarkable. No mass. Normal blood flow. Left ovary: Unremarkable. No mass. Normal blood flow. Free fluid: Mild free fluid. IMPRESSION: Mild free fluid.
--- NOTE | 2023-08-25 03:29 | ED ---
Female Urogenital HPI - General Chief complaint: Urogenital Stated complaint: Left groin pain Time Seen by Provider: 08/25/23 01:45 Source: patient, EMS Mode of arrival: EMS Limitations: no limitations - History of Present Illness Initial comments: 32-year-old female with a past medical history significant for ovarian cyst presents to the ED with a chief complaint of abdominal pain. Patient was transferred over from [facility] for an ultrasound which did not have available at this facility. Patient states earlier tonight was having sex and states she changed positions and laid on her side and immediately started to experience pain in her right lower abdomen. No vaginal bleeding. No vaginal discharge. Since then states constant pain in her right lower abdomen/pelvis. No changes in bowel or bladder habits. No fever or chills. No nausea or vomiting. No other complaints at this time. - Related Data Home Medications Medication Instructions Recorded Confirmed Omeprazole 20 tab PO DAILY 09/20/21 12/13/21 Previous Rx's Medication Instructions Recorded HYDROcodone/APAP 7.5-325MG [[place] 1 tab PO Q6HR PRN 3 Days #12 tab 12/13/21 7.5-325] Ibuprofen [Motrin] 600 mg PO Q6HR PRN #30 tab 12/13/21 Acetaminophen Tab [Tylenol] 650 mg PO Q6H #30 tab 08/25/23 Cephalexin [Keflex] 500 mg PO Q6HR 5 Days #20 cap 08/25/23 Ibuprofen [Motrin] 600 mg PO Q8HR PRN #30 tab 08/25/23 Allergies Allergy/AdvReac Type Severity Reaction Status Date / Time phenazopyridine Allergy Rash/Hives Verified 12/13/21 08:12 [From Pyridium] venom-honey bee Allergy Anaphylaxis Verified 12/13/21 08:12 Review of Systems ROS Statement: Those systems with pertinent positive or pertinent negative responses have been documented in the HPI. ROS Other: All systems not noted in ROS Statement are negative. 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 OB history: She has had 2 SAB, 1 ectopic and 4 vaginal deliveries. History of Any Multi-Drug Resistant Organisms: None Reported Additional Past Surgical History / Comment(s): D&C, EXPLORATORY LAP, Past Anesthesia/Blood Transfusion Reactions: No Reported Reaction Past Psychological History: Anxiety, Depression, PTSD Smoking Status: Current every day smoker Past Alcohol Use History: Occasional Past Drug Use History: Marijuana - Past Family History Sister(s) Family Medical History: Asthma Additional Family Medical History / Comment(s): aunt- thyroid disease Mother History Unknown: Yes Family Medical History: No Reported History Father History Unknown: Yes Family Medical History: No Reported History General Exam Limitations: no limitations General appearance: alert, in distress Eye exam: Present: normal appearance Neck exam: Present: normal inspection Respiratory exam: Present: normal lung sounds bilaterally Cardiovascular Exam: Present: regular rate, normal rhythm GI/Abdominal exam: Present: soft (Tenderness to palpation of the right lower abdomen medial/inferior to McBurney's point. No rebound guarding or rigidity.) Back exam: Present: normal inspection Neurological exam: Present: alert, oriented X3 Skin exam: Present: warm, dry Course Vital Signs 08/25/23 08/25/23 01:34 03:25 Temperature 98 F Pulse Rate 77 61 Respiratory 16 17 Rate Blood Pressure 105/77 103/72 O2 Sat by Pulse 99 99 Oximetry Medical Decision Making - Medical Decision Making Was pt. sent in by a medical professional or institution (, PA, ADVISER SALES, urgent care, hospital, or jail...) When possible be specific @ -[facility] Did you speak to anyone other than the patient for history (EMS, parent, family, police, friend...)? What history was obtained from this source @ -No Did you review nursing and triage notes (agree or disagree)? Why? @ -I reviewed and agree with nursing and triage notes Were old charts reviewed (outside hosp., previous admission, EMS record, old EK G, old radiological studies, urgent care reports/EKG's, jail records)? Report findings @ -Review of medical records from [facility] shows a urinalysis significant for negative nitrites, positive leukocyte Estrace, 3-5 RBCs, 15 white blood cells, 1-9 bacteria, and many squamous epithelial cells. test at this time was negative. Patient was provided 15 mg of IV Toradol, 4 mg of IV morphine, and 4 mg of IV Zofran. Patient also given 1 g of Rocephin. Differential Diagnosis (chest pain, altered mental status, abdominal pain women, abdominal pain men, vaginal bleeding, weakness, fever, dyspnea, syncope, headache, dizziness, GI bleed, back pain, seizure, CVA, palpatations, mental health, musculoskeletal)? @ -Differential Abdominal Pain Women: Appendicitis, Cholecystitis, diverticulosis, ischemic bowel, pancreatitis, he patitis, UTI, gastroenteritis, AAA, incarcerated hernia, bowel obstruction, constipation, inflammatory bowel, hepatitis, peptic ulcer disease, splenic infarction, perforated viscus, vulvitis, ovarian torsion, PID, kidney stone, placenta abruption, this is not meant to be an all-inclusive list EKG interpreted by me (3pts min.). @ -None X-rays interpreted by me (1pt min.). @ -None done CT interpreted by me (1pt min.). @ -None done U/S interpreted by me (1pt. min.). @ -Ultrasound interpreted by me which did show some mild free fluid however no evidence of torsion or other acute finding. What testing was considered but not performed or refused? (CT, X-rays, U/S, labs)? Why? @ -None What meds were considered but not given or refused? Why? @ -None Did you discuss the management of the patient with other professionals (professionals i.e. , PA, ADVISER SALES, lab, RT, psych nurse, social service liaison, house painting instructor, teacher, unarmed security officer, correctional case manager)? Give summary @ -No Was smoking cessation discussed for >3mins.? @ -No Was critical care preformed (if so, how long)? @ -No Were there social determinants of health that impacted care today? How? (Homelessness, low income, unemployed, alcoholism, drug addiction, transportation, low edu. Level, literacy, decrease access to med. care, usp, rehab)? @ -No Was there de-escalation of care discussed even if they declined (Discuss DNR or withdrawal of care, Hospice)? DNR status @ -No What co-morbidities impacted this encounter? (DM, HTN, Smoking, COPD, CAD, Cancer, CVA, ARF, Chemo, Hep., AIDS, mental health diagnosis, sleep apnea, morbid obesity)? @ -None Was patient admitted / discharged? Hospital course, mention meds given and route, prescriptions, significant lab abnormalities, going to OR and other pert inent info. @ -Discharge 32-year-old female presents to the ED with acute onset of lower abdominal/groin pain after a position change while having sex. Ultrasound did reveal a mild adrien unt of free fluid however no evidence of torsion or other acute finding. Laboratory studies unremarkable at this time. Patient had significant improvement of pain after receiving analgesia here in the ED. Patient discharged home advised to follow-up with her MISSILEMAN, Dr. Camargo. Review of paperwork at [facility] did show a urine that did have some bacteria however significant contamination. She did receive a gram of Rocephin at this facility. Patient did note history of UTIs which are asymptomatic. Patient provided prescription for Keflex. Additional prescriptions for ibu profen and Tylenol as well. Discussed strict return precautions with patient who verbalized agreement. Undiagnosed new problem with uncertain prognosis? @ -No Drug Therapy requiring intensive monitoring for toxicity (Heparin, Nitro, Insulin, Cardizem)? @ -No Were any procedures done? @ -No Diagnosis/symptom? @ -Abdominal pain Acute, or Chronic, or Acute on Chronic? @ -Acute Uncomplicated (without systemic symptoms) or Complicated (systemic symptoms)? @ -Uncomplicated Side effects of treatment? @ -No Exacerbation, Progression, or Severe Exacerbation? @ -No Poses a threat to life or bodily function? How? (Chest pain, [place], [place], pneumonia, PE, COPD, DKA, ARF, appy, cholecystitis, CVA, Diverticulitis, Homicidal, Suicidal, threat to staff... and all critical care pts) @ -No - Lab Data Result diagrams: 08/25/23 03:27 08/25/23 03:27 Lab Results 08/25/23 08/25/23 08/25/23 Range/Units 03:27 03:27 03:27 WBC 12.4 H (3.8-10.6) k/uL RBC 4.08 (3.80-5.40) m/uL Hgb 13.0 (11.4-16.0) gm/dL Hct 37.1 (34.0-46.0) % MCV 90.9 (80.0-100.0) fL MCH 31.8 (25.0-35.0) pg MCHC 35.0 (31.0-37.0) g/dL RDW 12.7 (11.5-15.5) % Plt Count 237 (150-450) k/uL MPV 9.0 Neutrophils % 73 % Lymphocytes % 19 % Monocytes % 5 % Eosinophils % 2 % Basophils % 1 % Neutrophils # 9.1 H (1.3-7.7) k/uL Lymphocytes # 2.3 (1.0-4.8) k/uL Monocytes # 0.6 (0-1.0) k/uL Eosinophils # 0.2 (0-0.7) k/uL Basophils # 0.1 (0-0.2) k/uL Sodium 137 (137-145) mmol/L Potassium 3.9 (3.5-5.1) mmol/L Chloride 107 (98-107) mmol/L Carbon Dioxide 21 L (22-30) mmol/L Anion Gap 9 mmol/L BUN 17 (7-17) mg/dL Creatinine 0.93 (0.52-1.04) mg/dL Est GFR (CKD-EPI)AfAm >90 (>60 ml/min/1.73 sqM) Est GFR (CKD-EPI)NonAf 82 (>60 ml/min/1.73 sqM) Glucose 80 (74-99) mg/dL Plasma Lactic Acid Elieser 0.7 (0.7-2.0) mmol/L Calcium 8.8 (8.4-10.2) mg/dL Total Bilirubin 0.5 (0.2-1.3) mg/dL AST 20 (14-36) U/L ALT 14 (4-34) U/L Alkaline Phosphatase 49 (38-126) U/L Total Protein 6.6 (6.3-8.2) g/dL Albumin 3.9 (3.5-5.0) g/dL Disposition Clinical Impression: Abdominal pain Disposition: HOME SELF-CARE Condition: Good Additional Instructions: Please return to the Emergency Department if symptoms worsen or any other concerns. Please follow-up with your MISSILEMAN. Prescriptions: Cephalexin [Keflex] 500 mg PO Q6HR 5 Days #20 cap Ibuprofen [Motrin] 600 mg PO Q8HR PRN #30 tab PRN Reason: Pain Acetaminophen Tab [Tylenol] 650 mg PO Q6H #30 tab Is patient prescribed a controlled substance at d/c from ED?: No Referrals: Chad Mireles DO [Primary Care Provider] - 1-2 days Time of Disposition: 04:06
[2023-08-25 03:39] VITALS: RESP 17
[2023-08-25 03:42] LABS: Basophils # (A) 0.1 k/uL (0-0.2); Basophils % (A) 1 %; Eosinophils # (A) 0.2 k/uL (0-0.7); Eosinophils % (A) 2 %; HCT 37.1 % (34.0-46.0); Lymphocytes # (A) 2.3 k/uL (1.0-4.8); Lymphocytes % (A) 19 %; MCH 31.8 pg (25.0-35.0); MCV 90.9 fL (80.0-100.0); Monocytes # (A) 0.6 k/uL (0-1.0); Monocytes % (A) 5 %; Neutrophils # (A) 9.1 k/uL (1.3-7.7); Neutrophils % (A) 73 %; Platelet Count 237 k/uL (150-450); RBC 4.08 m/uL (3.80-5.40); RDW 12.7 % (11.5-15.5); WBC 12.4 k/uL (3.8-10.6)
[2023-08-25 03:53] LABS: ALT 14 U/L (4-34); AST 20 U/L (14-36); African American GFR (CKD) >90 (>60 ml/min/1.73 sqM); Albumin 3.9 g/dL (3.5-5.0); Alkaline Phosphatase 49 U/L (38-126); Anion Gap 9 mmol/L; Blood Urea Nitrogen 17 mg/dL (7-17); Calcium 8.8 mg/dL (8.4-10.2); Carbon Dioxide 21 mmol/L (22-30); Chloride 107 mmol/L (98-107); Glucose 80 mg/dL (74-99); Non-African American GFR(CKD) 82 (>60 ml/min/1.73 sqM); Potassium 3.9 mmol/L (3.5-5.1); Sodium 137 mmol/L (137-145); Total Bilirubin 0.5 mg/dL (0.2-1.3); Total Protein 6.6 g/dL (6.3-8.2)
[2023-08-25] MEDS ORDERED: ACET/COD 300 MG/30 MG STARTER PACK 6 TAB BTL PO STA (04:06)
[2023-08-25 04:59] VITALS: BP 95/56; PULSE 58
== END 2023-08-25 04:54 | disposition home or self-care (01) ==
LOC: EC 01:33
DX: R10.32 Left lower quadrant pain (principal); K21.9 Gastro-esophageal reflux disease without esophagitis; F17.200 Nicotine dependence, unspecified, uncomplicated; F12.90 Cannabis use, unspecified, uncomplicated; Z79.899 Other long term (current) drug therapy; Z91.030 Bee allergy status; Z88.8 Allergy status to other drugs, medicaments and biological substances
CPT/HCPCS: 36415; 80053; 83605; 85025; 93975; 76830; 99284; 96374; J2270

== ENCOUNTER 2023-09-29 16:12 | Emergency (ER) | payer OTHER ==
--- NOTE | 2023-09-29 16:35 | ED ---
Female Urogenital HPI - General Source: patient, RN notes reviewed, old records reviewed Mode of arrival: wheelchair Limitations: no limitations <Shweta Griffith - Last Filed: 09/29/23 16:35> <Bird Pulido - Last Filed: 09/30/23 17:27> - General Stated complaint: Excessive Vag Bleeding Time Seen by Provider: 09/29/23 16:34 - History of Present Illness Initial comments: Quick note: Patient is a 32-year-old female presented to the ER with chief complaint of vaginal bleeding. Patient states she was seen here on August 25, 2023 and has been bleeding since. She does report she was diagnosed with a cyst. She states she has recently started to become weak and lightheaded. Denies any blood thinner use. (Shweta Griffith) 32-year-old female presenting with chief complaint of vaginal bleeding. Patient was seen here on August 25 and was diagnosed with an ovarian cyst, states that she has had vaginal bleeding ever since. She states that this bleeding can vary from quite light to somewhat heavy. He states that on Friday she became a bit frustrated with this irregular vaginal bleeding and was drinking alcohol. She states that yesterday she was vomiting and today she has been vomiting and fatigue. States that she feels a weak today. No blood thinners. No chest pain or difficulty breathing. No abdominal pain. No urinary symptoms. No flank pain. 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 (Bird Pulido) - Related Data Home Medications Medication Instructions Recorded Confirmed Omeprazole 20 tab PO DAILY 09/20/21 12/13/21 Previous Rx's Medication Instructions Recorded HYDROcodone/APAP 7.5-325MG [[place] 1 tab PO Q6HR PRN 3 Days #12 tab 12/13/21 7.5-325] Ibuprofen [Motrin] 600 mg PO Q6HR PRN #30 tab 12/13/21 Acetaminophen Tab [Tylenol] 650 mg PO Q6H #30 tab 08/25/23 Cephalexin [Keflex] 500 mg PO Q6HR 5 Days #20 cap 08/25/23 Ibuprofen [Motrin] 600 mg PO Q8HR PRN #30 tab 08/25/23 Allergies Allergy/AdvReac Type Severity Reaction Status Date / Time phenazopyridine Allergy Rash/Hives Verified 12/13/21 08:12 [From Pyridium] venom-honey bee Allergy Anaphylaxis Verified 12/13/21 08:12 Review of Systems ROS Other: All systems not noted in ROS Statement are negative. <Shweta Griffith - Last Filed: 09/29/23 16:35> ROS Other: All systems not noted in ROS Statement are negative. <Bird Pulido - Last Filed: 09/30/23 17:27> ROS Statement: Those systems with pertinent positive or pertinent negative responses have been documented in the HPI. 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 OB history: She has had 2 SAB, 1 ectopic and 4 vaginal deliveries. History of Any Multi-Drug Resistant Organisms: None Reported Additional Past Surgical History / Comment(s): D&C, EXPLORATORY LAP, Past Anesthesia/Blood Transfusion Reactions: No Reported Reaction Past Psychological History: Anxiety, Depression, PTSD Smoking Status: Current every day smoker Past Alcohol Use History: Occasional Past Drug Use History: Marijuana - Past Family History Sister(s) Family Medical History: Asthma Additional Family Medical History / Comment(s): aunt- thyroid disease Mother History Unknown: Yes Family Medical History: No Reported History Father History Unknown: Yes Family Medical History: No Reported History <Shweta Griffith - Last Filed: 09/29/23 16:35> General Exam <Juan RamonShweta pierre - Last Filed: 09/29/23 16:35> Limitations: no limitations General appearance: alert, in no apparent distress Head exam: Present: atraumatic, normocephalic Eye exam: Present: normal appearance, EOMI Neck exam: Present: normal inspection Respiratory exam: Present: normal lung sounds bilaterally. Absent: respiratory distress, wheezes, rales, rhonchi, stridor Cardiovascular Exam: Present: regular rate, normal rhythm, normal heart sounds. Absent: systolic murmur, diastolic murmur, rubs, gallop, clicks GI/Abdominal exam: Present: soft. Absent: distended, tenderness, guarding, rebound, rigid Expanded Female exam: Present: deferred Neurological exam: Present: alert, oriented X3 Psychiatric exam: Present: normal affect, normal mood Skin exam: Present: warm, dry <Bird Pulido - Last Filed: 09/30/23 17:27> - General Exam Comments Initial Comments: Visual Physical Exam Vital signs reviewed General: Weak appearing nontoxic, no acute distress. Head: Normocephalic, atraumatic Eyes: PERRLA, EOMI ENT: Airway patent Chest: Nonlabored breathing Skin: No visual rash, normal skin tone Neuro: Alert and oriented 3 Musculoskeletal: No gross abnormalities (Shweta Griffith) Course Vital Signs 09/29/23 09/29/23 09/29/23 16:40 21:07 23:26 Temperature 99 F 98.3 F Pulse Rate 106 H 94 74 Respiratory 20 18 16 Rate Blood Pressure 123/82 125/77 117/56 O2 Sat by Pulse 99 100 99 Oximetry Medical Decision Making <Shweta Griffith - Last Filed: 09/29/23 16:35> - Lab Data Result diagrams: 09/29/23 17:01 09/29/23 17:01 <Bird Pulido - Last Filed: 09/30/23 17:27> - Medical Decision Making I performed the quick note portion of this chart. Electronically signed by Shweta Griffith PA-C (Shweta Griffith) Was pt. sent in by a medical professional or institution ([facility], [facility], urgent care, hospital, or penitentiary...) When possible be specific @ -No Did you speak to anyone other than the patient for history (EMS, parent, family, police, friend...)? What history was obtained from this source @ -No Did you review nursing and triage notes (agree or disagree)? Why? @ -I reviewed and agree with nursing and triage notes Were old charts reviewed (outside hosp., previous admission, EMS record, old EKG, old radiological studies, urgent care reports/EKG's, penitentiary records)? Report findings @ -I reviewed the patient's previous visit from August 25 Differential Diagnosis (chest pain, altered mental status, abdominal pain women, abdominal pain men, vaginal bleeding, weakness, fever, dyspnea, syncope, headache, dizziness, GI bleed, back pain, seizure, CVA, palpatations, mental health, musculoskeletal)? @ -MDM Differential Vaginal Bleeding: Spontaneous , threatened , molar , ectopic , bloody show, incompetent cervix, abruptioplacenta, placenta previa, uterine rupture, dysfunctional uterine bleeding, hemorrhage, uterine fibroids. ... This is not meant to be an all-inclusive list EKG interpreted by me (3pts min.). @ -As above X-rays interpreted by me (1pt min.). @ -None done CT interpreted by me (1pt min.). @ -None done U/S interpreted by me (1pt. min.). @ -Ultrasound shows left ovarian cyst with thin septation versus 2 adjacent cysts. Appropriate arterial and venous spectral waveforms of the left ovary. Given the cyst size up to 4.5 cm this predisposes this patient for ovary depression. No evidence of torsion at this time. Endometrium within normal limits for thickness What testing was considered but not performed or refused? (CT, X-rays, U/S, labs)? Why? @ -None What meds were considered but not given or refused? Why? @ -None Did you discuss the management of the patient with other professionals (professionals i.e. , PA, [facility], lab, RT, psych nurse, social director, bush hog operator, teacher, campus police officer, immigration case worker)? Give summary @ -No Was smoking cessation discussed for >3mins.? @ -No Was critical care preformed (if so, how long)? @ -No Were there social determinants of health that impacted care today? How? (Homelessness, low income, unemployed, alcoholism, drug addiction, transportation, low edu. Level, literacy, decrease access to med. care, long-term, rehab)? @ -No Was there de-escalation of care discussed even if they declined (Discuss DNR or withdrawal of care, Hospice)? DNR status @ -No What co-morbidities impacted this encounter? (DM, HTN, Smoking, COPD, CAD, Cancer, CVA, ARF, Chemo, Hep., AIDS, mental health diagnosis, sleep apnea, morbid obesity)? @ -None Was patient admitted / discharged? Hospital course, mention meds given and route, prescriptions, significant lab abnormalities, going to OR and other pertinent info. @ -32-year-old female presenting chief complaint of vaginal bleeding. This has been ongoing for the last month. She is having no abdominal pain. She states that she was vomiting yesterday after drinking alcohol on Friday and today she feels a bit weak. Workup is initiated by triage. Hemoglobin is stable at 15.2. Negative hCG. Ultrasound shows evidence of ovarian cyst with no evidence of torsion. Patient's vital signs are WNL. She is given IV fluids and Zofran. She is educated on today's findings instructed to follow-up with her FIGURE REFINISHER AND REPAIRER and PCP. She requests a work note. Discharged home. Follow-up with PCP. Report back to ER with any new or worsening symptoms. Discussed return parameters and answered all questions. Patient conveyed verbal understanding and agreed to the plan. I discussed this case in detail with my attending Dr. Ramsey Undiagnosed new problem with uncertain prognosis? @ -No Drug Therapy requiring intensive monitoring for toxicity (Heparin, Nitro, Insulin, Cardizem)? @ -No Were any procedures done? @ -No Diagnosis/symptom? @ -Dysfunctional uterine bleeding Acute, or Chronic, or Acute on Chronic? @ -Acute Uncomplicated (without systemic symptoms) or Complicated (systemic symptoms)? @ -Uncomplicated Side effects of treatment? @ -No Exacerbation, Progression, or Severe Exacerbation? @ -No Poses a threat to life or bodily function? How? (Chest pain, USA, [place], pneumonia, PE, COPD, DKA, ARF, appy, cholecystitis, CVA, Diverticulitis, Homicidal, Suicidal, threat to staff... and all critical care pts) @ -Unlikely (Bird Pulido) - Lab Data Lab Results 09/29/23 09/29/23 09/29/23 Range/Units 17:01 17:01 17:01 WBC 10.7 H (3.8-10.6) k/uL RBC 4.79 (3.80-5.40) m/uL Hgb 15.2 (11.4-16.0) gm/dL Hct 43.4 (34.0-46.0) % MCV 90.5 (80.0-100.0) fL MCH 31.8 (25.0-35.0) pg MCHC 35.1 (31.0-37.0) g/dL RDW 13.0 (11.5-15.5) % Plt Count 270 (150-450) k/uL MPV 9.5 Neutrophils % 73 % Lymphocytes % 19 % Monocytes % 6 % Eosinophils % 1 % Basophils % 0 % Neutrophils # 7.8 H (1.3-7.7) k/uL Lymphocytes # 2.1 (1.0-4.8) k/uL Monocytes # 0.6 (0-1.0) k/uL Eosinophils # 0.1 (0-0.7) k/uL Basophils # 0.0 (0-0.2) k/uL PT 10.5 (10.0-12.5) sec INR 1.0 (<1.2) APTT 26.9 (22.0-30.0) sec Sodium 135 L (137-145) mmol/L Potassium 3.9 (3.5-5.1) mmol/L Chloride 97 L (98-107) mmol/L Carbon Dioxide 26 (22-30) mmol/L Anion Gap 12 mmol/L BUN 20 H (7-17) mg/dL Creatinine 0.93 (0.52-1.04) mg/dL Est GFR (CKD-EPI)AfAm >90 (>60 ml/min/1.73 sqM) Est GFR (CKD-EPI)NonAf 82 (>60 ml/min/1.73 sqM) Glucose 87 (74-99) mg/dL Calcium 9.4 (8.4-10.2) mg/dL Total Bilirubin 0.9 (0.2-1.3) mg/dL AST 38 H (14-36) U/L ALT 21 (4-34) U/L Alkaline Phosphatase 57 (38-126) U/L Total Protein 7.6 (6.3-8.2) g/dL Albumin 4.7 (3.5-5.0) g/dL Urine Color Urine Appearance (Clear) Urine pH (5.0-8.0) Ur Specific [place] (1.001-1.035) Urine Protein (Negative) Urine Glucose (UA) (Negative) Urine Ketones (Negative) Urine Blood (Negative) Urine Nitrite (Negative) Urine Bilirubin (Negative) Urine Urobilinogen (<2.0) mg/dL Ur Leukocyte Esterase (Negative) Urine RBC (0-5) /hpf Urine WBC (0-5) /hpf Ur Squamous Epith Cells (0-4) /hpf Urine Mucus (None) /hpf Urine HCG, Qual (Not Detectd) 09/29/23 09/29/23 Range/Units 17:05 17:05 WBC (3.8-10.6) k/uL RBC (3.80-5.40) m/uL Hgb (11.4-16.0) gm/dL Hct (34.0-46.0) % MCV (80.0-100.0) fL MCH (25.0-35.0) pg MCHC (31.0-37.0) g/dL RDW (11.5-15.5) % Plt Count (150-450) k/uL MPV Neutrophils % % Lymphocytes % % Monocytes % % Eosinophils % % Basophils % % Neutrophils # (1.3-7.7) k/uL Lymphocytes # (1.0-4.8) k/uL Monocytes # (0-1.0) k/uL Eosinophils # (0-0.7) k/uL Basophils # (0-0.2) k/uL PT (10.0-12.5) sec INR (<1.2) APTT (22.0-30.0) sec Sodium (137-145) mmol/L Potassium (3.5-5.1) mmol/L Chloride (98-107) mmol/L Carbon Dioxide (22-30) mmol/L Anion Gap mmol/L BUN (7-17) mg/dL Creatinine (0.52-1.04) mg/dL Est GFR (CKD-EPI)AfAm (>60 ml/min/1.73 sqM) Est GFR (CKD-EPI)NonAf (>60 ml/min/1.73 sqM) Glucose (74-99) mg/dL Calcium (8.4-10.2) mg/dL Total Bilirubin (0.2-1.3) mg/dL AST (14-36) U/L ALT (4-34) U/L Alkaline Phosphatase (38-126) U/L Total Protein (6.3-8.2) g/dL Albumin (3.5-5.0) g/dL Urine Color Yellow Urine Appearance Clear (Clear) Urine pH 6.0 (5.0-8.0) Ur Specific [place] 1.024 (1.001-1.035) Urine Protein Trace H (Negative) Urine Glucose (UA) Negative (Negative) Urine Ketones 2+ H (Negative) Urine Blood Small H (Negative) Urine Nitrite Negative (Negative) Urine Bilirubin Negative (Negative) Urine Urobilinogen <2.0 (<2.0) mg/dL Ur Leukocyte Esterase Negative (Negative) Urine RBC 9 H (0-5) /hpf Urine WBC 3 (0-5) /hpf Ur Squamous Epith Cells 1 (0-4) /hpf Urine Mucus Many H (None) /hpf Urine HCG, Qual Not Detected (Not Detectd) Disposition <Shweta Griffith - Last Filed: 09/29/23 16:35> Is patient prescribed a controlled substance at d/c from ED?: No Time of Disposition: 23:07 <Bird Pulido - Last Filed: 09/30/23 17:27> Clinical Impression: Dysfunctional uterine bleeding Disposition: HOME SELF-CARE Condition: Good Instructions (If sedation given, give patient instructions): Abnormal (Dysfunctional) Uterine Bleeding (ED) Additional Instructions: Follow-up with PCP and [facility]URE REFINISHER AND REPAIRER. Report back to ER with any new or worsening symptoms. Referrals: Chad Mireles DO [Primary Care Provider] - 1-2 days Ashley Camargo DO [Doctor of Osteopathic Medicine] - 1-2 days
[2023-09-29 17:37] LABS: Appearance,Urine Clear (Clear); Bilirubin,Urine Negative (Negative); Blood,Urine Small (Negative); Color,Urine Yellow; Glucose,Urine (UA) Negative (Negative); Ketones,Urine 2+ (Negative); Leukocyte Esterase,Urine Negative (Negative); Mucus,Urine Many /hpf; Nitrite,Urine Negative (Negative); Protein,Urine Trace (Negative); RBC,Urine 9 /hpf (0-5); Specific Gravity,Urine 1.024 (1.001-1.035); Squamous Epithelial Cell,Urine 1 /hpf (0-4); Urobilinogen,Urine <2.0 mg/dL (<2.0); WBC,Urine 3 /hpf (0-5)
[2023-09-29 17:45] LABS: ALT 21 U/L (4-34); AST 38 U/L (14-36); African American GFR (CKD) >90 (>60 ml/min/1.73 sqM); Albumin 4.7 g/dL (3.5-5.0); Anion Gap 12 mmol/L; Blood Urea Nitrogen 20 mg/dL (7-17); Calcium 9.4 mg/dL (8.4-10.2); Carbon Dioxide 26 mmol/L (22-30); Chloride 97 mmol/L (98-107); Glucose 87 mg/dL (74-99); Non-African American GFR(CKD) 82 (>60 ml/min/1.73 sqM); Sodium 135 mmol/L (137-145); Total Bilirubin 0.9 mg/dL (0.2-1.3); Total Protein 7.6 g/dL (6.3-8.2)
[2023-09-29 17:52] LABS: Alkaline Phosphatase 57 U/L (38-126); Basophils % (A) 0 %; Eosinophils # (A) 0.1 k/uL (0-0.7); Eosinophils % (A) 1 %; HCT 43.4 % (34.0-46.0); HGB 15.2 gm/dL (11.4-16.0); Lymphocytes # (A) 2.1 k/uL (1.0-4.8); Lymphocytes % (A) 19 %; MCH 31.8 pg (25.0-35.0); MCHC 35.1 g/dL (31.0-37.0); MCV 90.5 fL (80.0-100.0); Mean Platelet Volume 9.5; Monocytes # (A) 0.6 k/uL (0-1.0); Monocytes % (A) 6 %; Neutrophils # (A) 7.8 k/uL (1.3-7.7); Neutrophils % (A) 73 %; Platelet Count 270 k/uL (150-450); Potassium 3.9 mmol/L (3.5-5.1); RBC 4.79 m/uL (3.80-5.40); WBC 10.7 k/uL (3.8-10.6)
[2023-09-29 17:53] LABS: Partial Thromboplastin Time 26.9 sec (22.0-30.0); Prothrombin Time 10.5 sec (10.0-12.5)
--- NOTE | 2023-09-29 18:14 | US ---
EXAMINATION TYPE: US transvaginal DATE OF EXAM: 09/29/2023 COMPARISON: 08/25/23 CLINICAL INDICATION: Female, 32 years old with history of vaginal bleeding; Pt states bleeding on and off since 08/25/23. No pelvic pain at this time. TECHNIQUE: Transvaginal (TV). Date of LMP: Bleeding on and off since 08/25/23 EXAM MEASUREMENTS: Uterus: 9.2 x 5.2 x 4.3 cm Endometrial Stripe: 1.2 cm Right Ovary: 3.3 x 2.5 x 1.6 cm Left Ovary: 5.3 x 4.5 x 2.9 cm 1. Uterus: Anteverted wnl 2. Endometrium: wnl 3. Right Ovary: wnl 4. Left Ovary: One cystic area seen with a septation inside measuring 4.5 x 3.7 x 2.6 cm Spectral, color and waveform doppler imaging shows good arterial and venous flow within the ovaries ; there is no evidence for ovarian torsion. 5. Bilateral Adnexa: wnl 6. Posterior cul-de-sac: wnl IMPRESSION: 1. Left ovarian cyst with thin septation versus 2 adjacent cysts. Appropriate arterial and venous sp ectral waveforms of the left ovary. Given the cyst size up to 4.5 cm this predisposes this patient fo r ovarian torsion. No evidence for torsion at this time 2. Endometrium within normal limits for thickness.
[2023-09-29 21:31] VITALS: TEMP 98.3
[2023-09-29] MEDS: SODIUM CHLORIDE 0.9% 1,000 ML IV ONE (22:44)
[2023-09-29] MEDS: ONDANSETRON 4 MG/2 ML VIAL IVP STA (22:45)
[2023-09-30 00:13] VITALS: BP 117/56; PULSE 74; RESP 16
== END 2023-09-30 00:04 | disposition home or self-care (01) ==
LOC: EC 16:12
DX: N93.8 Other specified abnormal uterine and vaginal bleeding (principal); K21.9 Gastro-esophageal reflux disease without esophagitis; F17.200 Nicotine dependence, unspecified, uncomplicated; Z79.899 Other long term (current) drug therapy; Z86.59 Personal history of other mental and behavioral disorders; Z91.030 Bee allergy status; Z88.8 Allergy status to other drugs, medicaments and biological substances
CPT/HCPCS: 36415; 80053; 85025; 85610; 85730; 81001; 81025; 93975; 76830; 99284; 96374; 96361; J2405

== ENCOUNTER 2024-03-26 07:59 | Emergency (ER) | payer OTHER ==
[2024-03-26 08:12] VITALS: TEMP 97.9
--- NOTE | 2024-03-26 08:30 | ED ---
Nausea/Vomiting/Diarrhea HPI - General Chief complaint: Nausea/Vomiting/Diarrhea Stated complaint: vomiting,abd pain Time Seen by Provider: 03/26/24 08:15 Source: patient, family, RN notes reviewed Mode of arrival: ambulatory Limitations: no limitations - History of Present Illness Initial comments: 33-year-old female presented to the ER with a chief complaint of sore throat. Patient states her 6-year-old daughter recently was diagnosed with strep throat and has been antibiotics for the past 24 hours. Patients other 2 children have similar complaints. Patient also reports recent sick contacts at work. She is endorsing sore throat, cough, fevers, mild diarrhea, nausea and myalgias. Denies any hematochezia or vomiting. Patient has not taken anything for symptoms at this time. Patient is a every day smoker. Patient denies any headache, chest pain, shortness of breath, abdominal pain, urinary complaints or peripheral edema. - Related Data Home Medications Medication Instructions Recorded Confirmed Omeprazole 20 tab PO DAILY 09/20/21 12/13/21 Previous Rx's Medication Instructions Recorded HYDROcodone/APAP 7.5-325MG [[place] 1 tab PO Q6HR PRN 3 Days #12 tab 12/13/21 7.5-325] Ibuprofen [Motrin] 600 mg PO Q6HR PRN #30 tab 12/13/21 Acetaminophen Tab [Tylenol] 650 mg PO Q6H #30 tab 08/25/23 Cephalexin [Keflex] 500 mg PO Q6HR 5 Days #20 cap 08/25/23 Ibuprofen [Motrin] 600 mg PO Q8HR PRN #30 tab 08/25/23 Amoxicillin 500 mg PO BID #20 capsule 03/26/24 Allergies Allergy/AdvReac Type Severity Reaction Status Date / Time phenazopyridine Allergy Rash/Hives Verified 03/26/24 08:12 [From Pyridium] venom-honey bee Allergy Anaphylaxis Verified 03/26/24 08:12 Review of Systems ROS Statement: Those systems with pertinent positive or pertinent negative responses have been documented in the HPI. ROS Other: All systems not noted in ROS Statement are negative. Past Medical History Past Medical History: GERD/Reflux Additional Past Medical History / Comment(s): HSV last outbreak 2001 ovarian cyst. OB history: She has had 2 SAB, 1 ectopic and 4 vaginal deliveries. History of Any Multi-Drug Resistant Organisms: None Reported Additional Past Surgical History / Comment(s): D&C, EXPLORATORY LAP, Past Anesthesia/Blood Transfusion Reactions: No Reported Reaction Past Psychological History: Anxiety, Depression, PTSD Smoking Status: Current every day smoker Past Alcohol Use History: Occasional Past Drug Use History: Marijuana - Past Family History Sister(s) Family Medical History: Asthma Additional Family Medical History / Comment(s): aunt- thyroid disease Mother History Unknown: Yes Family Medical History: No Reported History Father History Unknown: Yes Family Medical History: No Reported History General Exam Limitations: no limitations General appearance: alert, in no apparent distress Eye exam: Present: normal appearance, PERRL, EOMI. Absent: scleral icterus, conjunctival injection, periorbital swelling ENT exam: Present: normal exam, normal oropharynx (Erythematous no exudates pres ent. Oropharynx patent), mucous membranes moist, TM's normal bilaterally Neck exam: Present: normal inspection. Absent: tenderness, meningismus, lymphadenopathy Respiratory exam: Present: normal lung sounds bilaterally. Absent: respiratory distress, wheezes, rales, rhonchi, stridor Cardiovascular Exam: Present: regular rate, normal rhythm, normal heart sounds. Absent: systolic murmur, diastolic murmur, rubs, gallop, clicks Extremities exam: Present: normal inspection, full ROM, normal capillary refill. Absent: tenderness, pedal edema, joint swelling, calf tenderness Neurological exam: Present: alert, oriented X3, CN II-XII intact Skin exam: Present: warm, dry, intact, normal color. Absent: rash Course Vital Signs 03/26/24 03/26/24 03/26/24 08:11 09:10 10:20 Temperature 97.9 F 97.9 F Pulse Rate 71 74 Respiratory 76 H 18 Rate Blood Pressure 120/80 118/89 O2 Sat by Pulse 98 99 Oximetry Medical Decision Making - Medical Decision Making Was pt. sent in by a medical professional or institution (, PA, [facility], urgent care, hospital, or jail...) When possible be specific @ -No Did you speak to anyone other than the patient for history (EMS, parent, family, police, friend...)? What history was obtained from this source @ -No Did you review nursing and triage notes (agree or disagree)? Why? @ -I reviewed and agree with nursing and triage notes Were old charts reviewed (outside hosp., previous admission, EMS record, old EKG, old radiological studies, urgent care reports/EKG's, jail records)? Report findings @ -No old charts were reviewed Differential Diagnosis (chest pain, altered mental status, abdominal pain women, abdominal pain men, vaginal bleeding, weakness, fever, dyspnea, syncope, headache, dizziness, GI bleed, back pain, seizure, CVA, palpatations, mental health, musculoskeletal)? @ -COVID, RSV, influenza, viral sinusitis, pneumonia this list is not meant to be all-inclusive EKG interpreted by me (3pts min.). @ -None X-rays interpreted by me (1pt min.). @ -None done CT interpreted by me (1pt min.). @ -None done U/S interpreted by me (1pt. min.). @ -None done What testing was considered but not performed or refused? (CT, X-rays, U/S, labs)? Why? @ -None What meds were considered but not given or refused? Why? @ -None Did you discuss the management of the patient with other professionals (professionals i.e. , PA, TUBING ASSEMBLER, lab, RT, psych nurse, social work professor, family development specialist, teacher, corporate officer, patient case manager)? Give summary @ -No Was smoking cessation discussed for >3mins.? @ -I discussed smoking cessation for greater than 3 minutes. The risk of smoking were discussed with the patient including but not limited to risks of cancer, stroke, coronary artery disease and COPD. Also discussed with patient were multiple methods of quitting smoking. Lastly we discussed the financial cost of smoking. Was critical care preformed (if so, how long)? @ -No Were there social determinants of health that impacted care today? How? (Homelessness, low income, unemployed, alcoholism, drug addiction, transportation, low edu. Level, literacy, decrease access to med. care, long term, rehab)? @ -No Was there de-escalation of care discussed even if they declined (Discuss DNR or withdrawal of care, Hospice)? DNR status @ -No What co-morbidities impacted this encounter? (DM, HTN, Smoking, COPD, CAD, Cancer, CVA, ARF, Chemo, Hep., AIDS, mental health diagnosis, sleep apnea, morbid obesity)? @ -Smoker Was patient admitted / discharged? Hospital course, mention meds given and route, prescriptions, significant lab abnormalities, going to OR and other pertinent info. @ -Discharge. 33-year-old female presented to the ER with a chief complaint of myalgias and sore throat. History and physical exam completed. Vitals upon examination stable. Patient in no signs of acute distress and nontoxic- appearing. Erythematous bilateral tonsils. No white exudates. Patient received by mouth ibuprofen for symptom control in the ER. Influenza, RSV, COVID and strep negative. Due to close positive contacts and presenting symptoms concerning of strep pharyngitis patient will be treated with amoxicillin, first dose in the ER. On reevaluation, patient resting company in exam room in no signs of acute distress. Results discussed with patient, all questions answered. Advised [id number] Tylenol and Motrin for fever control. Strict return parameters discussed. Patient discharged stable condition with follow-up to PCP. Patient verbally expressed understanding agreement care plan. Case discussed with ED attending, . Undiagnosed new problem with uncertain prognosis? @ -No Drug Therapy requiring intensive monitoring for toxicity (Heparin, Nitro, Insulin, Cardizem)? @ -No Were any procedures done? @ -No Diagnosis/symptom? @ -Strep pharyngitis Acute, or Chronic, or Acute on Chronic? @ -Acute Uncomplicated (without systemic symptoms) or Complicated (systemic symptoms)? @ -Uncomplicated Side effects of treatment? @ -No Exacerbation, Progression, or Severe Exacerbation? @ -No Poses a threat to life or bodily function? How? (Chest pain, [place], [place], pneumonia, PE, COPD, DKA, ARF, appy, cholecystitis, CVA, Diverticulitis, Homicidal, Suicidal, threat to staff... and all critical care pts) @ -No - Lab Data Lab Results 03/26/24 03/26/24 Range/Units 08:49 08:49 Influenza Type A (PCR) Not Detected (Not Detectd) Influenza Type B (PCR) Not Detected (Not Detectd) RSV (PCR) Not Detected (Not Detectd) SARS-CoV-2 (PCR) Not Detected (Not Detectd) Group A Strep (PCR) NOT DETECTED (Not Detectd) Disposition Clinical Impression: Strep pharyngitis Disposition: HOME SELF-CARE Condition: Stable Instructions (If sedation given, give patient instructions): Fever in Adults (ED) Additional Instructions: I recommend [id number] Tylenol and Motrin for fever control. Complete full course of amoxicillin. Start first at home dose tonight as he received the first dose in the ER. Follow-up with PCP. Return to the ER for any new or worsening concerns. Prescriptions: Amoxicillin 500 mg PO BID #20 capsule Is patient prescribed a controlled substance at d/c from ED?: No Referrals: None,Stated [Primary Care Provider] - 1-2 days Forms: Area PCPs Time of Disposition: 09:55
[2024-03-26] MEDS: IBUPROFEN 600 MG TAB PO STA (08:56)
[2024-03-26] MEDS: AMOXICILLIN 500 MG CAP PO STA (10:13)
[2024-03-26 10:21] VITALS: BP 118/89; PULSE 74; RESP 18
== END 2024-03-26 10:21 | disposition home or self-care (01) ==
LOC: EC 07:59
CPT/HCPCS: 87636; 87651; 99284; 99406

== ENCOUNTER 2024-04-02 20:16 | Emergency (ER) | payer OTHER ==
[2024-04-02 20:23] VITALS: TEMP 98.6
--- NOTE | 2024-04-02 21:07 | ED ---
Neck Injury/Pain HPI - General Source: patient, RN notes reviewed Mode of arrival: ambulatory Limitations: no limitations <Madyson Martins - Last Filed: 04/02/24 21:05> <Tonia John - Last Filed: 04/16/24 08:58> - General Chief Complaint: Neck Pain/Injury Stated Complaint: Neck/Chest Pain Time Seen by Provider: 04/02/24 20:30 - History of Present Illness Initial Comments: Quick [id number] male presents emergency department chief complaint of of neck pain that started approximately 4 hours ago. Patient states that the pain is located to her neck and is not exacerbated range of motion. Patient was completing a lot of housework this afternoon. Denies blurry, double vision, headaches. (Madyson Martins) 33-year-old male presents emergency department reporting neck pain. States it started 4 hours ago while she was at work. Patient states that she did a lot of housework earlier today where she had to continuously look up. She started having a cramping sensation while she was at work to the point where she felt like she had to leave. She did not take anything for the pain at this time. No history of chronic neck problems. No chest pain or difficulty breathing. No headache or visual changes. No trauma. No other alleviating, precipitating modifying factors (Tonia Jonh) - Related Data Home Medications Medication Instructions Recorded Confirmed Omeprazole 20 tab PO DAILY 09/20/21 12/13/21 Previous Rx's Medication Instructions Recorded HYDROcodone/APAP 7.5-325MG [[place] 1 tab PO Q6HR PRN 3 Days #12 tab 12/13/21 7.5-325] Ibuprofen [Motrin] 600 mg PO Q6HR PRN #30 tab 12/13/21 Acetaminophen Tab [Tylenol] 650 mg PO Q6H #30 tab 08/25/23 Cephalexin [Keflex] 500 mg PO Q6HR 5 Days #20 cap 08/25/23 Ibuprofen [Motrin] 600 mg PO Q8HR PRN #30 tab 08/25/23 Amoxicillin 500 mg PO BID #20 capsule 03/26/24 Cyclobenzaprine [Flexeril] 10 mg PO TID PRN #30 tab 04/02/24 Ketorolac [Toradol] 10 mg PO Q8HR #15 tab 04/02/24 Cyclobenzaprine [Flexeril] 5 mg PO TID PRN 5 Days #15 tablet 04/03/24 Ketorolac [Toradol] 10 mg PO Q8HR PRN 5 Days #15 tab 04/03/24 Allergies Allergy/AdvReac Type Severity Reaction Status Date / Time phenazopyridine Allergy Rash/Hives Verified 04/02/24 20:23 [From Pyridium] venom-honey bee Allergy Anaphylaxis Verified 04/02/24 20:23 Review of Systems ROS Other: All systems not noted in ROS Statement are negative. <Madyson Martins - Last Filed: 04/02/24 21:05> ROS Other: All systems not noted in ROS Statement are negative. <Tonia John - Last Filed: 04/16/24 08:58> ROS Statement: Those systems with pertinent positive or pertinent negative responses have been documented in the HPI. 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 OB history: She has had 2 SAB, 1 ectopic and 4 vaginal deliveries. History of Any Multi-Drug Resistant Organisms: None Reported Additional Past Surgical History / Comment(s): D&C, EXPLORATORY LAP, Past Anesthesia/Blood Transfusion Reactions: No Reported Reaction Past Psychological History: Anxiety, Depression, PTSD Smoking Status: Current every day smoker Past Alcohol Use History: Occasional Past Drug Use History: Marijuana - Past Family History Sister(s) Family Medical History: Asthma Additional Family Medical History / Comment(s): aunt- thyroid disease Mother History Unknown: Yes Family Medical History: No Reported History Father History Unknown: Yes Family Medical History: No Reported History <Madyson Martins - Last Filed: 04/02/24 21:05> General Exam Limitations: no limitations <Madyson Martins - Last Filed: 04/02/24 21:05> General appearance: alert, in no apparent distress Head exam: Present: atraumatic, normocephalic, normal inspection Eye exam: Present: normal appearance, PERRL, EOMI. Absent: scleral icterus, conjunctival injection, periorbital swelling ENT exam: Present: normal exam, mucous membranes moist Neck exam: Present: tenderness (To palpation of the paraspinal muscles on the right). Absent: meningismus, lymphadenopathy Respiratory exam: Present: normal lung sounds bilaterally. Absent: respiratory distress, wheezes, rales, rhonchi, stridor Cardiovascular Exam: Present: regular rate, normal rhythm, normal heart sounds. Absent: systolic murmur, diastolic murmur, rubs, gallop, clicks GI/Abdominal exam: Present: soft, normal bowel sounds. Absent: distended, tenderness, guarding, rebound, rigid Extremities exam: Present: normal inspection, full ROM, normal capillary refill. Absent: tenderness, pedal edema, joint swelling, calf tenderness Back exam: Present: normal inspection Neurological exam: Present: alert, oriented X3, CN II-XII intact Psychiatric exam: Present: normal affect, normal mood Skin exam: Present: warm, dry, intact, normal color. Absent: rash <Tonia John - Last Filed: 04/16/24 08:58> - General Exam Comments Initial Comments: Visual Physical Exam Vital signs reviewed General: Well-appearing, nontoxic, no acute distress. Head: Normocephalic, atraumatic Eyes: PERRLA, EOMI ENT: Airway patent Chest: Nonlabored breathing Skin: No visual rash, normal skin tone Neuro: Alert and oriented 3 Musculoskeletal: No gross abnormalities (Madyson Martins) Course Vital Signs 04/02/24 04/02/24 04/03/24 20:20 22:23 00:04 Temperature 98.6 F Pulse Rate 87 68 88 Respiratory 18 16 16 Rate Blood Pressure 137/90 117/65 126/70 O2 Sat by Pulse 100 97 98 Oximetry Medical Decision Making <Madyson Martins - Last Filed: 04/02/24 21:05> <Tonia John - Last Filed: 04/16/24 08:58> - Medical Decision Making I completed the quick note portion of this chart signed Madyson Martins PA-C (Madyson Martins) Was pt. sent in by a medical professional or institution ([facility] Hernández, MANGLE PRESS CATCHER, urgent care, hospital, or fpc...) When possible be specific @ -No Did you speak to anyone other than the patient for history (EMS, parent, family, police, friend...)? What history was obtained from this source @ -No Did you review nursing and triage notes (agree or disagree)? Why? @ -I reviewed and agree with nursing and triage notes Were old charts reviewed (outside hosp., previous admission, EMS record, old E KG, old radiological studies, urgent care reports/EKG's, fpc records)? Report findings @ -No old charts were reviewed Differential Diagnosis (chest pain, altered mental status, abdominal pain women, abdominal pain men, vaginal bleeding, weakness, fever, dyspnea, syncope, headache, dizziness, GI bleed, back pain, seizure, CVA, palpatations, mental health, musculoskeletal)? @ -Differential Back Pain: Strain, zoster, cauda equina syndrome, epidural abscess, vertebral osteomyelitis, discitis, fracture, subluxation, disc herniation, DJD, spinal stenosis, dissection, AAA, pancreatitis, peptic ulcer disease, pyelonephritis, kidney stone, this is not meant to be an all-inclusive list. EKG interpreted by me (3pts min.). @ -Not done X-rays interpreted by me (1pt min.). @ -None done CT interpreted by me (1pt min.). @ -None done U/S interpreted by me (1pt. min.). @ -None done What testing was considered but not performed or refused? (CT, X-rays, U/S, labs)? Why? @ -None What meds were considered but not given or refused? Why? @ -None Did you discuss the management of the patient with other professionals (professionals i.e. , PA, MANGLE PRESS CATCHER, lab, RT, psych nurse, psych social worker, broomcorn thresher, teacher, police patrol officer, skilled nursing case manager)? Give summary @ -No Was smoking cessation discussed for >3mins.? @ -No Was critical care preformed (if so, how long)? @ -No Were there social determinants of health that impacted care today? How? (Homelessness, low income, unemployed, alcoholism, drug addiction, transportation, low edu. Level, literacy, decrease access to med. care, [facility], rehab)? @ -No Was there de-escalation of care discussed even if they declined (Discuss DNR or withdrawal of care, Hospice)? DNR status @ -No What co-morbidities impacted this encounter? (DM, HTN, Smoking, COPD, CAD, Cancer, CVA, ARF, Chemo, Hep., AIDS, mental health diagnosis, sleep apnea, morbid obesity)? @ -None Was patient admitted / discharged? Hospital course, mention meds given and route, prescriptions, significant lab abnormalities, going to OR and other pertinent info. @ -Discharge. Upon arrival patient seen and evaluated in the hallway. Thorough history and physical exam was performed. Patient given pain medications and muscle relaxers. She does have improvement in her symptoms. Patient will be discharged home with a prescription for muscle relaxers. Instructed follow-up with her primary care doctor and return for any new or worsening symptoms Undiagnosed new problem with uncertain prognosis? @ -No Drug Therapy requiring intensive monitoring for toxicity (Heparin, Nitro, Insu juliano, Cardizem)? @ -No Were any procedures done? @ -No Diagnosis/symptom? @ -Acute cervical neck strain Acute, or Chronic, or Acute on Chronic? @ -Acute Uncomplicated (without systemic symptoms) or Complicated (systemic symptoms)? @ -Uncomplicated Side effects of treatment? @ -No Exacerbation, Progression, or Severe Exacerbation? @ -No Poses a threat to life or bodily function? How? (Chest pain, [place], [place], pneumonia, PE, COPD, DKA, ARF, appy, cholecystitis, CVA, Diverticulitis, Homicidal, Suicidal, threat to staff... and all critical care pts) @ -No (Tonia John) Disposition <Madyson Martins - Last Filed: 04/02/24 21:05> Is patient prescribed a controlled substance at d/c from ED?: No Time of Disposition: 23:35 <Tonia John - Last Filed: 04/16/24 08:58> Clinical Impression: Neck pain Disposition: HOME SELF-CARE Condition: Stable Instructions (If sedation given, give patient instructions): Cervical Strain (ED) Additional Instructions: Place warm compresses to the site. Take the medications as needed. Follow-up with your doctor and return for any new or worsening symptoms Prescriptions: Cyclobenzaprine [Flexeril] 10 mg PO TID PRN #30 tab PRN Reason: Muscle Spasm Cyclobenzaprine [Flexeril] 5 mg PO TID PRN 5 Days #15 tablet PRN Reason: Pain Ketorolac [Toradol] 10 mg PO Q8HR PRN 5 Days #15 tab PRN Reason: Pain Ketorolac [Toradol] 10 mg PO Q8HR #15 tab Referrals: None,Stated [Primary Care Provider] - 1-2 days
[2024-04-02] MEDS: CYCLOBENZAPRINE 10 MG TAB PO STA (21:45)
[2024-04-02] MEDS: KETOROLAC 15 MG/ML 1 ML VIAL IM STA (21:45)
[2024-04-02] MEDS: ORPHENADRINE 30 MG/ML 2 ML VIAL IM STA (21:49)
[2024-04-02] MEDS: HYDROmorphone 1 MG/ML 1 ML SYRINGE IM STA (22:37)
[2024-04-03 00:24] VITALS: BP 126/70; PULSE 88; RESP 16
== END 2024-04-03 00:04 | disposition home or self-care (01) ==
LOC: EC 20:16
CPT/HCPCS: 96372; 99283

== ENCOUNTER 2024-10-19 21:50 | Emergency (ER) | payer OTHER ==
--- NOTE | 2024-10-19 22:17 | ED ---
General Adult HPI - General Chief complaint: Extremity Injury, Lower Stated complaint: R Ankle Injury Time Seen by Provider: 10/19/24 22:14 Source: patient, RN notes reviewed Mode of arrival: wheelchair Limitations: no limitations - History of Present Illness Initial comments: 33-year-old female no reported medical history presents emergency department for complaint of right ankle pain. Patient states that on she had a crushing injury that occurred with the carr fish bait picker in between a wall. Patient was evaluated urgent care after initial injury where x-ray imaging was completed with no evidence of fracture. She was provided with a walking boot instructed follow-up with orthopedics outpatient. Patient states that she has been having increasing pain of the right ankle and pain with weightbearing. Denies new injuries. Denies previous surgeries of the ankle. States she has been taking Motrin at home with minimal relief in symptoms. - Related Data Home Medications Medication Instructions Recorded Confirmed Omeprazole 20 tab PO DAILY 09/20/21 12/13/21 Previous Rx's Medication Instructions Recorded HYDROcodone/APAP 7.5-325MG [[place] 1 tab PO Q6HR PRN 3 Days #12 tab 12/13/21 7.5-325] Ibuprofen [Motrin] 600 mg PO Q6HR PRN #30 tab 12/13/21 Acetaminophen Tab [Tylenol] 650 mg PO Q6H #30 tab 08/25/23 Cephalexin [Keflex] 500 mg PO Q6HR 5 Days #20 cap 08/25/23 Ibuprofen [Motrin] 600 mg PO Q8HR PRN #30 tab 08/25/23 Amoxicillin 500 mg PO BID #20 capsule 03/26/24 Cyclobenzaprine [Flexeril] 10 mg PO TID PRN #30 tab 04/02/24 Ketorolac [Toradol] 10 mg PO Q8HR #15 tab 04/02/24 Cyclobenzaprine [Flexeril] 5 mg PO TID PRN 5 Days #15 tablet 04/03/24 Ketorolac [Toradol] 10 mg PO Q8HR PRN 5 Days #15 tab 04/03/24 Ketorolac [Toradol] 10 mg PO Q8HR #15 tab 10/19/24 Allergies Allergy/AdvReac Type Severity Reaction Status Date / Time phenazopyridine Allergy Rash/Hives Verified 10/19/24 22:00 [From Pyridium] venom-honey bee Allergy Anaphylaxis Verified 10/19/24 22:00 Review of Systems ROS Statement: Those systems with pertinent positive or pertinent negative responses have been documented in the HPI. ROS Other: All systems not noted in ROS Statement are negative. 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 OB history: She has had 2 SAB, 1 ectopic and 4 vaginal deliveries. History of Any Multi-Drug Resistant Organisms: None Reported Past Surgical History: Tubal Ligation Additional Past Surgical History / Comment(s): D&C, EXPLORATORY LAP, Past Anesthesia/Blood Transfusion Reactions: No Reported Reaction Past Psychological History: Anxiety, Depression, PTSD Smoking Status: Current every day smoker Past Alcohol Use History: None Reported Past Drug Use History: Marijuana - Past Family History Sister(s) Family Medical History: Asthma Additional Family Medical History / Comment(s): aunt- thyroid disease Mother History Unknown: Yes Family Medical History: No Reported History Father History Unknown: Yes Family Medical History: No Reported History General Exam Limitations: no limitations General appearance: alert, in no apparent distress ENT exam: Present: normal exam, mucous membranes moist Respiratory exam: Present: normal lung sounds bilaterally. Absent: respiratory distress, wheezes, rales, rhonchi, stridor Cardiovascular Exam: Present: regular rate, normal rhythm, normal heart sounds. Absent: systolic murmur, diastolic murmur, rubs, gallop, clicks GI/Abdominal exam: Present: soft, normal bowel sounds. Absent: distended, tenderness, guarding, rebound, rigid Right Ankle exam: Present: tenderness, swelling, ecchymosis. Absent: deformity, crepitus, dislocation Neurovascular tendon exam: Present: no vascular compromise. Absent: pulse deficit Back exam: Present: normal inspection Course Vital Signs 10/19/24 10/19/24 22:00 23:28 Temperature 98.6 F 98.5 F Pulse Rate 108 H 75 Respiratory 20 18 Rate Blood Pressure 109/79 115/75 O2 Sat by Pulse 100 98 Oximetry Medical Decision Making - Medical Decision Making Was pt. sent in by a medical professional or institution (, PA, CYTOGENETICIST, urgent care, hospital, or snf...) When possible be specific @ -No Did you speak to anyone other than the patient for history (EMS, parent, family, police, friend...)? What history was obtained from this source @ -No Did you review nursing and triage notes (agree or disagree)? Why? @ -I reviewed and agree with nursing and triage notes Were old charts reviewed (outside hosp., previous admission, EMS record, old EKG, old radiological studies, urgent care reports/EKG's, snf records)? Report findings @ -No old charts were reviewed Differential Diagnosis (chest pain, altered mental status, abdominal pain women, abdominal pain men, vaginal bleeding, weakness, fever, dyspnea, syncope, headache, dizziness, GI bleed, back pain, seizure, CVA, palpatations, mental health, musculoskeletal)? @ -Differential Musculoskeletal Muscular strain, contusion, ligament sprain, fracture, arthritis, septic arthritis, bursitis, cellulitis, muscle spasm, nerve compression, DVT, arterial occlusion, herpes zoster, electrolyte abnormality, tumor.... This is not meant to be in all inclusive list EKG interpreted by me (3pts min.). @ -None X-rays interpreted by me (1pt min.). @ -X-ray of the right ankle reveals no evidence of acute fracture with subcutaneous swelling around the ankle likely secondary to soft tissue injury CT interpreted by me (1pt min.). @ -None done U/S interpreted by me (1pt. min.). @ -None done What testing was considered but not performed or refused? (CT, X-rays, U/S, labs)? Why? @ -None What meds were considered but not given or refused? Why? @ -None Did you discuss the management of the patient with other professionals (professionals i.e. , PA, CYTOGENETICIST, lab, RT, psych nurse, drug abuse social worker, arson and bomb investigator, teacher, ski patrol officer, director of casework services)? Give summary @ -No Was smoking cessation discussed for >3mins.? @ -No Was critical care preformed (if so, how long)? @ -No Were there social determinants of health that impacted care today? How? ( Homelessness, low income, unemployed, alcoholism, drug addiction, transportation, low edu. Level, literacy, decrease access to med. care, [facility], rehab)? @ -No Was there de-escalation of care discussed even if they declined (Discuss DNR or withdrawal of care, Hospice)? DNR status @ -No What co-morbidities impacted this encounter? (DM, HTN, Smoking, COPD, CAD, Cancer, CVA, ARF, Chemo, Hep., AIDS, mental health diagnosis, sleep apnea, morbid obesity)? @ -None Was patient admitted / discharged? Hospital course, mention meds given and route, prescriptions, significant lab abnormalities, going to OR and other pertinent info. @ - Discharge. 33-year-old female presenting with pain to the right ankle. There is mild ecchymosis to the medial and lateral ankle with no obvious deformity. 2+ pedal pulse. Patient is neurovascularly intact of the right lower extremity. She is provided with dose of pain medication. X-ray imaging is unremarkable. Patient has a walking boot provided previously. Recommend that she continue to wear walking boot to follow-up with analytics specialist. She is provided with outpatient prescription for Toradol. Recommend she continue supportive treatmen t in addition to elevating leg while not ambulating. Case discussed with Dr. Durant Undiagnosed new problem with uncertain prognosis? @ -No Drug Therapy requiring intensive monitoring for toxicity (Heparin, Nitro, Insulin, Cardizem)? @ -No Were any procedures done? @ -No Diagnosis/symptom? @ -Ankle sprain Acute, or Chronic, or Acute on Chronic? @ -Acute Uncomplicated (without systemic symptoms) or Complicated (systemic symptoms)? @ -Uncomplicated Side effects of treatment? @ -No Exacerbation, Progression, or Severe Exacerbation? @ -No Poses a threat to life or bodily function? How? (Chest pain, [place], [place], pneumonia, PE, COPD, DKA, ARF, appy, cholecystitis, CVA, Diverticulitis, Homicidal, Suicidal, threat to staff... and all critical care pts) @ -No Disposition Clinical Impression: Ankle sprain Disposition: HOME SELF-CARE Condition: Good Instructions (If sedation given, give patient instructions): Ankle Sprain (ED) Additional Instructions: Please return to the Emergency Department if symptoms worsen or any other concerns. Prescriptions: Ketorolac [Toradol] 10 mg PO Q8HR #15 tab Is patient prescribed a controlled substance at d/c from ED?: No Referrals: Chad Mireles DO [Primary Care Provider] - 1-2 days Time of Disposition: 23:26
--- NOTE | 2024-10-19 22:59 | XR ---
EXAMINATION TYPE: XR ankle complete RT DATE OF EXAM: 10/19/2024 10:52 PM COMPARISON: None CLINICAL INDICATION: Female, 33 years old with history of injury, pain to lateral and medial, ecchymo sis; PHH, pain TECHNIQUE: XR ankle complete RT; frontal, lateral and oblique projections. FINDINGS: There is no evidence of acute osseous pathology. No evidence of subluxation or dislocation. Kager's fat pad is intact. Mild soft tissue swelling around the ankle. No radiopaque foreign bodies are ident ified. IMPRESSION: 1. No evidence of acute fracture. 2. Subcutaneous swelling around the ankle likely secondary to underlying soft tissue injury. [facility], , 10/19/2024 10:57 PM
[2024-10-19] MEDS: KETOROLAC 15 MG/ML 1 ML VIAL IVP STA (23:00)
[2024-10-19] MEDS: MORPHINE SULFATE 4 MG/ML SYRINGE IVP STA (23:01)
[2024-10-19 23:29] VITALS: BP 115/75; PULSE 75; RESP 18; TEMP 98.5
== END 2024-10-19 23:42 | disposition home or self-care (01) ==
LOC: EC 21:50
DX: S93.409A Sprain of unspecified ligament of unspecified ankle, initial encounter (principal); F17.200 Nicotine dependence, unspecified, uncomplicated; Z91.030 Bee allergy status; Z88.8 Allergy status to other drugs, medicaments and biological substances; W23.0XXA Caught, crushed, jammed, or pinched between moving objects, initial encounter
CPT/HCPCS: 73610; 99283; 96374; 96375; J2270; J1885